=== PATIENT | female | born 1970 | race Caucasian/White ===

== ENCOUNTER → 2018-02-14 14:03 | Outpatient (CLI) | payer OTHER, SELFPAY ==
[2018-02-19 11:47] LABS: HPV Reflexed? NOT INDICATED
== END ==
PROVIDERS: Family Provider Family Medicine; PCP Family Medicine; Visit Provider Obstetrics & Gynecology
DX: Z12.4 Encounter for screening for malignant neoplasm of cervix (principal)
CPT/HCPCS: 88175; G0145

== ENCOUNTER → 2018-02-17 12:58 | Outpatient (CLI) | payer OTHER, SELFPAY ==
--- NOTE | 2018-02-17 13:00 | RAD_ITS ---
STUDY: X-RAY - LEFT KNEE REASON FOR EXAM: Female, 47 years old. Pain TECHNIQUE: 4 view(s) of the knee. COMPARISON: 10/07/2017 FINDINGS: Normal visualized distal femur. Normal visualized proximal tibia and fibula. Normal proximal tibiofibular articulation. Stable hemiarthroplasty of the medial femorotibial compartment. The hardware components are well aligned and stable. Mild degenerative spurring at the lateral femorotibial compartment with stable intra-articular calcific densities. Degenerative spurring at the patellofemoral articulation. The soft tissue structures are unremarkable. RAD/Knee 4 or More Views IMPRESSION: Stable postoperative and degenerative changes of the knee. No interval change Electronically Signed: Dennis King MD at 13:23 EDT , Service support ,
== END ==
PROVIDERS: Family Provider Family Medicine; PCP Family Medicine; Visit Provider Orthopaedic Surgery
DX: M25.562 Pain in left knee (principal)
CPT/HCPCS: 73564

== ENCOUNTER → 2018-08-06 12:55 | Outpatient (CLI) | payer OTHER, SELFPAY ==
[2018-08-06 14:01] LABS: Bacteria 0 SEEN /hpf (None Seen); Mucous, Urine 0 SEEN /hpf (<or=2+); Red Blood Cells-Urine 0 SEEN /hpf (0-5); White Blood Cells 0 SEEN /hpf (0-5)
[2018-08-06 15:15] LABS: Color, Urine Yellow (Yellow); Glucose, Dipstick Normal (Normal); Ketone-Dipstick Negative (Negative); Leukocyte Esterase-Dipstick 25 /ul (Negative); Nitrite-Dipstick Negative (Negative); Occult Blood-Urine Negative /ul (Negative); Protein-Dipstick 15 mg/dl (Negative); Specific Gravity, Urine 1.025 (1.002-1.030); Urine Bilirubin Dipstick Negative (Negative); Urine Clarity Clear (Clear); Urine Urobilinogen Normal (Normal)
[2018-08-06 15:22] LABS: Squamous Epithelial Cells - UA 0-5 SEEN /hpf (5-10)
== END ==
PROVIDERS: Family Provider Family Medicine; PCP Family Medicine; Visit Provider Family Medicine
DX: R10.9 Unspecified abdominal pain (principal)
CPT/HCPCS: 81001; 87077; 87086; 87088

== ENCOUNTER → 2018-10-08 16:08 | Outpatient (CLI) | payer OTHER, SELFPAY ==
--- NOTE | 2018-10-08 16:11 | RAD_ITS ---
STUDY: X-RAY - RIGHT WRIST REASON FOR EXAM: Female, 47 years old. Tendinitis, no known injury TECHNIQUE: 3 view(s) of the wrist were obtained. COMPARISON: None. FINDINGS: Normal visualized distal radius and ulna. Normal radiocarpal articulation. Normal distal radioulnar articulation. Normal carpal bones. Normal carpal articulations. Normal carpometacarpal articulation of the thumb. Normal second through fifth carpometacarpal articulations. Normal visualized metacarpal bones. The soft tissue structures are unremarkable. RAD/Wrist min 3 Views IMPRESSION: Normal x-ray examination of the wrist. Electronically Signed: Helena Schmidt MD at 7:32 EST , Service support ,
== END ==
PROVIDERS: Family Provider Family Medicine; PCP Family Medicine; Referring Provider Family Medicine; Visit Provider Family Medicine
DX: M65.9 Synovitis and tenosynovitis, unspecified (principal)
CPT/HCPCS: 73110

== ENCOUNTER → 2019-05-06 | Outpatient (CLI) | payer OTHER, SELFPAY ==
--- NOTE | 2019-05-06 14:36 | BI_ITS ---
MAMMOGRAPHY - BILATERAL SCREENING REASON FOR EXAM: Female, 48 years old. Routine annual screening examination. PERTINENT HISTORY: Personal history of breast cancer. Prior left lumpectomy. Grandmother with breast cancer. TECHNIQUE: Digital bilateral breast teodoro (3D mammographic acquisition) in the CC and MLO projections. 2-D mediolateral oblique (MLO) and craniocaudad (CC) views of both breasts were obtained. CAD: Full Field Digital Mammography with Computer Added Detection was performed. COMPARISON: Comparison is made with prior examination dated August 24, 2016 and August 10, 2015. FINDINGS: Breast Composition: There are scattered areas of fibroglandular density. There are no dominant masses or suspicious calcifications. The patient is status post left lumpectomy in the retroareolar region of the left breast. Stable postoperative architectural distortion. No new abnormality is seen. No other significant abnormalities are identified. There has been no significant change since the prior study. BI/SCREEN MAMM (CAD) W/TEODORO BILAT IMPRESSION: Stable bilateral screening mammogram. Yearly follow-up mammogram recommended. (A) ASSESSMENT CATEGORY: BIRADS Category 2: Benign. A letter regarding these results will be sent to the patient by the facility within 30 days. Approximately 10% of breast cancers are not detected by mammography. A normal mammogram should not delay biopsy of a clinically suspicious abnormality. [id number] Electronically Signed: Narendra Cano, at 15:36 EDT , Service support ,
== END | disposition home or self-care (01) ==
LOC: OPBI 14:33
PROVIDERS: Family Provider Family Medicine; PCP Family Medicine; Referring Provider Obstetrics & Gynecology; Visit Provider Obstetrics & Gynecology
DX: Z12.31 Encounter for screening mammogram for malignant neoplasm of breast (principal)
CPT/HCPCS: 77063; 77067

== ENCOUNTER → 2019-06-27 | Outpatient (CLI) | payer OTHER, SELFPAY ==
[2019-06-27 09:04] LABS: Absolute Lymphocyte Count 1.74 X10^3/uL (0.83-4.51); Basophil# 0.05 X10^3/uL; Basophil% 1.1 % (0-1); Eosinophil# 0.26 X10^3/uL; Eosinophils% 5.9 % (0-5); Hematocrit 43.6 % (37-47); Hemoglobin 13.9 g/dL (12.0-15.0); Lymphocyte # 1.74 X10^3/ul (4.0); Lymphocyte % 39.5 % (19-41); Mean Corp Hgb Conc 31.9 g/dL (32-36); Mean Corpuscular Hgb 29.8 pg (27.0-32.0); Mean Corpuscular Volume 93.4 fL (81-99); Mean Platelet Vol. 11.2 fl (6.2-12.0); Monocyte# 0.39 X10^3/uL; Monocyte% 8.9 % (0-10); NRBC Flagged by Analyzer 0 % (0-5); Neutrophil # 1.95 X10^3/uL (2.7-7.7); Neutrophil % 44.4 % (47-70); Platelet Count 190 K/mm3 (150-450); RBC Distribution Width CV 12.4 % (11.6-14.6); RBC Distribution Width SD 42.5 fl (35.1-43.9); Red Blood Count 4.67 M/mm3 (4.2-5.4); White Blood Count 4.4 K/mm3 (4.4-11.0)
[2019-06-27 09:28] LABS: Anion Gap 6 (5-15); BUN 19 mg/dL (7-18); BUN/Creat Ratio 23.5 RATIO (10-20); Calcium,Total 8.7 mg/dL (8.5-10.1); Chloride 112 mmol/L (98-107); Cholesterol 231 mg/dL (200); Creatinine, Serum 0.81 mg/dL (0.55-1.02); EST Glomerular Filtration Rate 79 mL/min (>60); Est Glom Filt Rate - Afr Amer 96 mL/min (>60); Glucose 92 mg/dL (74-106); High Density Lipoprotein 65 mg/dL; Potassium 4.1 mmol/L (3.5-5.1); Sodium Level 146 mmol/L (136-145); Triglycerides 113 mg/dL; Very Low Density Lipoprotein 23 mg/dL (5-40)
[2019-06-27 13:47] LABS: Vitamin D,25 Hydroxy 25.6 ng/mL (29.95-100.01)
== END | disposition home or self-care (01) ==
LOC: LAB 08:19
PROVIDERS: Family Provider Family Medicine; PCP Family Medicine; Referring Provider Family Medicine; Visit Provider Family Medicine
DX: E78.00 Pure hypercholesterolemia, unspecified (principal); M25.50 Pain in unspecified joint; K21.9 Gastro-esophageal reflux disease without esophagitis
CPT/HCPCS: 36415; 80048; 80061; 82306; 85025

== ENCOUNTER 2019-12-31 23:48 | Emergency (ER) | payer OTHER, SELFPAY ==
[2019-12-31 23:49] VITALS: BP 138/99; PULSE 65; RESP 16; TEMP 36.6; O2SAT 99; BMI 41.7
--- NOTE | 2020-01-01 00:13 | RAD_ITS ---
STUDY: X-RAY - RIGHT KNEE REASON FOR EXAM: Female, 49 years old. FELL -- C/O BILAT KNEE PAIN RT WORSE THAN LEFT TECHNIQUE: 4 view(s) of the knee. COMPARISON: Prior comparison studies are not available for review at this time. FINDINGS: Normal visualized distal femur. Spurring along the distal femur, tibial plateau, posterior inferior patella. Normal visualized proximal tibia and fibula. Normal proximal tibiofibular articulation. There is moderate degenerative arthrosis of the medial femorotibial compartment with moderate joint space narrowing. Normal lateral femorotibial compartment. There is mild degenerative arthrosis of the patellofemoral articulation. There is a soft tissue prominence in the suprapatellar region suggesting a small volume joint effusion. Subcutaneous stranding anterior to the tibia. RAD/Knee 4 or More Views IMPRESSION: Multiple moderate degenerative changes, small effusion. There is no acute displaced fracture or dislocation. Electronically Signed: Helena Schmidt MD at 1:27 EST , Service support ,
--- NOTE | 2020-01-01 00:13 | RAD_ITS ---
STUDY: X-RAY - LEFT KNEE REASON FOR EXAM: Female, 49 years old. FELL -- C/O BILAT KNEE PAIN RT WORSE THAN LEFT TECHNIQUE: 4 view(s) of the knee. COMPARISON: 02/17/2018 FINDINGS: Stable medial hemiarthroplasty. Spurring along the distal femur. Normal proximal tibiofibular articulation. Stable intra-articular densities. There is mild degenerative arthrosis of the lateral femorotibial compartment. There is moderate to severe degenerative arthrosis of the patellofemoral articulation, increased since previous exam. There is no demonstrated joint effusion. Morbid obesity. Subcutaneous fat infiltration proximal anterior tibia. RAD/Knee 4 or More Views IMPRESSION: Degenerative arthrosis. Increased degeneration. Stable postsurgical changes. Electronically Signed: Helena Schmidt MD at 1:24 EST , Service support ,
[2020-01-01 00:40] LABS: Bacteria 0 SEEN /hpf (None Seen); Mucous, Urine 0 SEEN /hpf (<or=2+); Squamous Epithelial Cells - UA 0 SEEN /hpf (5-10)
[2020-01-01 00:44] LABS: Color, Urine Yellow (Yellow); Glucose, Dipstick Normal (Normal); Ketone-Dipstick Negative (Negative); Leukocyte Esterase-Dipstick 25 /ul (Negative); Nitrite-Dipstick Negative (Negative); Occult Blood-Urine 10 /ul (Negative); Protein-Dipstick Negative (Negative); Urine Bilirubin Dipstick Negative (Negative); Urine Clarity Clear (Clear); Urine Urobilinogen Normal (Normal)
[2020-01-01 00:53] LABS: Red Blood Cells-Urine 0-5 SEEN /hpf (0-5); White Blood Cells 5-10 SEEN /hpf (0-5)
--- NOTE | 2020-01-01 01:00 | ED.VISSUMM ---
- ER Visit Summary Date of Service: 01/01/20 Chief Complaint: [Fall] History of Present Illness: The patient is a 49 F [presents to the emergency department with complaint of a fall while leaving work today. Patient states she slipped and fell landing mostly onto her right side. Patient planes of some discomfort in her right back and both knees. She was able to bear weight afterwards. She denies regular head or loss of consciousness. She denies neck pain. She denies chest pain or abdominal pain.] Physical Examination: [HEENT-PERRLA, EOMI. Cranial nerves II through XII grossly intact. TMs clear. Mucous membranes moist. No adenopathy. No external evidence of trauma to her head. No C-spine tenderness on palpation. Cardiovascular-regular rate and rhythm without murmur or ectopy Lungs-clear to auscultation, chest wall stable without crepitus or subcu emphysema Abdomen-normoactive bowel sounds, soft, nontender, no rebound or rigidity, no peritoneal signs. Back exam-she has no tenderness over the C-spine, or T-spine. She has no tenderness over the lumbar spine. Patient does have some mild discomfort over the right flank. Pain seems to be positional. She has negative straight leg raises. Extremities-intact ?4, normal range of motion, normal pulses. Right knee-patient does have some ecchymosis and bruising noted anteriorly with just faint superficial abrasions noted. Patient has good range of motion flexion extension of the knee. She is neurovascular intact distally. Left knee-patient has some diffuse tenderness palpation over the left knee especially the lateral aspect. No deformity noted. Patient has good range of motion of flexion-extension.] Test Results: [Urinalysis obtained showed 0-5 RBCs and 5-10 WBCs without other signs of infection.] X-rays of right and left knees obtained read by myself as no acute fractures. X-ray of the left knee does show a partial knee replacement and the hardware appears to be in good position without any fractures around the prosthesis. Emergency Department Course and Treatment: [He was given Tylenol 1 g p.o. Patient did not want crutches.] Treatment Plan: [Follow-up with corporate care in 3 to 5 days. Patient advised to use Tylenol for discomfort. Patient also will be given a few Percocet for severe pain should she needed.] Disposition: [Discharged home in stable condition] Impression: [Mechanical fall Contusion back Contusion bilateral knees] This note was generated with [employer] dictation software. It may contain incorrect words, spelling, and punctuation that were not noted in review of the chart prior to signing ED Disposition - Plan for ED Patient: Referrals: Albert Chi MD [Primary Care Provider] -
[2020-01-01] MEDS: Acetaminophen 500 MG Tablet 1000 MG PO (01:05)
--- NOTE | 2020-01-01 01:10 | DCINST.ED_ITS ---
ED Disposition - Plan for ED Patient: Instructions: FALL, Mechanical, CONTUSION, Back, CONTUSION, Lower Extremity Prescriptions: Oxycodone [Oxyir] 5 mg PO Q4H PRN PRN 3 Days #10 tab PRN Reason: Pain Score 6-10/10 Prescription Printed Referrals: Albert Chi MD [Primary Care Provider] - [facility] [GROUP OF PHYSICIANS] - 3-5 Days
[2020-01-01 01:49] VITALS: BP 135/89; PULSE 87; RESP 16; O2SAT 97
== END 2020-01-01 01:51 | disposition home or self-care (01) ==
LOC: ED 01-01 00:41
PROVIDERS: Emergency Provider Emergency Medicine; PCP Family Medicine; Referring Provider Family Medicine
DX: S80.02XA Contusion of left knee, initial encounter (principal); S80.01XA Contusion of right knee, initial encounter; S30.0XXA Contusion of lower back and pelvis, initial encounter; W10.1XXA Fall (on)(from) sidewalk curb, initial encounter
CPT/HCPCS: 73564; 81001; 99282

== ENCOUNTER → 2020-01-13 13:04 | Outpatient (CLI) | payer OTHER, SELFPAY ==
[2020-01-13 12:53] VITALS: BMI 41.7
--- NOTE | 2020-01-13 13:05 | RAD_ITS ---
STUDY: X-RAY - RIGHT ELBOW REASON FOR EXAM: Female, 49 years old. FALL X 1 WEEK TECHNIQUE: 3 view(s) of the elbow. COMPARISON: None. FINDINGS: Normal visualized humerus, radius and ulna. Normal radiocapitellar and ulnotrochlear articulations. The soft tissue structures are unremarkable. RAD/Elbow min 3 Views IMPRESSION: Normal x-ray examination of the elbow. Electronically Signed: Narendra Cano, at 13:41 EST , Service support ,
== END ==
PROVIDERS: PCP Family Medicine; Referring Provider Physician Assistant; Visit Provider Physician Assistant
DX: S50.01XA Contusion of right elbow, initial encounter (principal)
CPT/HCPCS: 73080

== ENCOUNTER → 2020-01-28 15:35 | Outpatient (CLI) | payer OTHER, SELFPAY ==
[2020-01-13 12:53] VITALS: BMI 41.7
--- NOTE | 2020-01-28 15:35 | MRI_ITS ---
STUDY: MRI RIGHT KNEE REASON FOR EXAM: Female, 49 years old. PT SLIPPED ON ICE 12/31/19 C/O PAIN H/O PRIOR TORN MENISCUS TECHNIQUE: Standardized fat and water weighted pulse sequences were obtained in all 3 orthogonal planes. 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 No visualized acute fracture. Mild edema is present in the subcutaneous tissues of the anterior knee. Varicose veins are present on the lateral side of the knee joint. There is degenerative tearing at the root insertion and inner one third aspect of the posterior horn of the medial meniscus. The remaining aspects of the posterior horn are swollen with abnormal intrinsic signal. Intrasubstance degenerative signal is also present in the body. The anterior horn is normal. There are several small loose bodies in the posterior aspect compartment beneath the joint capsule and superficial to the MCL. There is diffuse, full thickness articular cartilage loss of the medial femorotibial compartment. There is mild reactive marrow edema and cortical spurring of the medial femoral condyle and tibial plateau. Normal medial collateral ligamentous complex (MCL). Normal distal semimembranosus, gracilis and semitendinosus tendons. Normal lateral meniscus. There is diffuse, less than 50% thickness articular cartilage loss of the lateral femorotibial compartment. Normal lateral femoral condyle and tibial plateau. Normal proximal tibiofibular articulation. Normal lateral collateral (fibular) ligament. Normal popliteus tendon. Normal biceps femoris tendon. Normal anterior cruciate ligament (ACL). Normal posterior cruciate ligament (PCL). Normal congruent patellofemoral articulation. There is diffuse, less than 50% thickness articular cartilage loss of the patellofemoral compartment. Normal medial and lateral patellar retinaculum. Normal quadriceps tendon. Normal patellar tendon. Normal Hoffa''s fat pad. There is no joint effusion. The soft tissues are unremarkable. The otherwise visualized osseous structures are unremarkable. MRI/Lower Ext Joint Only (Routine) IMPRESSION: 1. Degenerative tear in the posterior horn of the medial meniscus 2. Several small loose bodies at the periphery of the medial compartment but needs the joint capsule 3. Full-thickness loss of cartilage in the medial compartment 4. Small joint effusion Electronically Signed: Deangelo Durán MD at 17:26 EST , Service support ,
== END ==
PROVIDERS: PCP Family Medicine; Referring Provider Physician Assistant; Visit Provider Physician Assistant
DX: S80.01XA Contusion of right knee, initial encounter (principal)
CPT/HCPCS: 73721

== ENCOUNTER → 2020-05-24 06:46 | Outpatient (CLI) | payer OTHER, SELFPAY ==
[2020-01-13 12:53] VITALS: BMI 41.7
== END ==
PROVIDERS: PCP Family Medicine; Referring Provider Family Medicine; Visit Provider Family Medicine
DX: Z00.00 Encounter for general adult medical examination without abnormal findings (principal)

== ENCOUNTER → 2020-06-14 09:57 | Outpatient (CLI) | payer OTHER, SELFPAY ==
[2020-01-13 12:53] VITALS: BMI 41.7
[2020-06-14 11:18] LABS: Cholesterol 233 mg/dL (200); High Density Lipoprotein 65 mg/dL; Triglycerides 158 mg/dL; Very Low Density Lipoprotein 32 mg/dL (5-40)
== END ==
PROVIDERS: PCP Family Medicine; Referring Provider Family Medicine; Visit Provider Family Medicine
DX: E78.5 Hyperlipidemia, unspecified (principal); E55.9 Vitamin D deficiency, unspecified
CPT/HCPCS: 36415; 80061; 82306

== ENCOUNTER → 2020-06-30 12:30 | Outpatient (CLI) | payer OTHER, SELFPAY ==
[2020-01-13 12:53] VITALS: BMI 41.7
--- NOTE | 2020-06-30 12:32 | BI_ITS ---
MAMMOGRAPHY - BILATERAL SCREENING REASON FOR EXAM: Female, 49 years old. Routine annual screening examination. PERTINENT HISTORY: Personal history of breast cancer. Prior left lumpectomy. Grandmother with breast cancer. Aunt with breast cancer. TECHNIQUE: Digital bilateral breast teodoro (3D mammographic acquisition) in the CC and MLO projections. 2-D mediolateral oblique (MLO) and craniocaudad (CC) views of both breasts were obtained. CAD: Full Field Digital Mammography with Computer Added Detection was performed. COMPARISON: Comparison is made with prior examination dated 05/06/2019 and 08/24/2016. FINDINGS: Breast Composition: There are scattered areas of fibroglandular density. There are no dominant masses or suspicious calcifications. Surgical clips are once again seen in the central retroareolar portion of the left breast with the postoperative scarring at the lumpectomy site. This is unchanged. No other significant abnormalities are identified. There has been no significant change since the prior study. BI/SCREEN MAMM (CAD) W/TEODORO BILAT IMPRESSION: Stable bilateral screening mammogram. Yearly follow-up mammogram recommended. (A) ASSESSMENT CATEGORY: BIRADS Category 2: Benign. A letter regarding these results will be sent to the patient by the facility within 30 days. Approximately 10% of breast cancers are not detected by mammography. A normal mammogram should not delay biopsy of a clinically suspicious abnormality. [id number] Electronically Signed: Narendra Cano, at 8:22 EDT , Service support ,
== END ==
PROVIDERS: PCP Family Medicine; Referring Provider Obstetrics & Gynecology; Visit Provider Obstetrics & Gynecology
DX: Z12.31 Encounter for screening mammogram for malignant neoplasm of breast (principal)
CPT/HCPCS: 77063; 77067

== ENCOUNTER → 2021-02-10 12:56 | Outpatient (CLI) | payer OTHER, SELFPAY ==
[2020-01-13 12:53] VITALS: BMI 41.7
--- NOTE | 2021-02-10 13:01 | RAD_ITS ---
STUDY: X-RAY - RIGHT KNEE REASON FOR EXAM: Right knee pain. TECHNIQUE: 4 view(s) of the knee. COMPARISON: Radiographs 01/01/2020. FINDINGS: There is a chondroid series tumor in the distal femoral diametaphysis measuring 1.3 cm in length and unchanged since the prior study most consistent with an enchondroma. Normal visualized proximal tibia and fibula. Normal proximal tibiofibular articulation. There is severe joint space narrowing of the medial femorotibial compartment, increased since the prior study. Normal lateral femorotibial compartment. There are small marginal osteophytes without joint space narrowing of the patellofemoral articulation. There is a small joint effusion. There is a soft tissue calcification at the medial aspect of the knee. RAD/Knee 4 or More Views IMPRESSION: Increased arthrosis of the medial femorotibial compartment. Small joint effusion. Soft tissue calcification at the medial aspect of the knee. No interval change of chondroid series tumor in the distal femur. Electronically Signed: Yovany Soto MD at 13:32 EDT Tel , Service support ,
--- NOTE | 2021-02-10 13:01 | RAD_ITS ---
STUDY: X-RAY - LEFT KNEE REASON FOR EXAM: Left knee pain, left knee surgery in 2016. TECHNIQUE: 4 view(s) of the knee. COMPARISON: Radiographs 01/01/2020. FINDINGS: Normal visualized distal femur. Normal visualized proximal tibia and fibula. Normal proximal tibiofibular articulation. There is a medial femorotibial unicompartmental arthroplasty without evidence of complication. Normal lateral femorotibial compartment. There are marginal osteophytes without joint space narrowing of the patellofemoral articulation. There is a small joint effusion. RAD/Knee 4 or More Views IMPRESSION: Uncomplicated medial femorotibial unicompartmental arthroplasty. Small joint effusion. Electronically Signed: Yovany Soto MD at 13:39 EDT Tel , Service support ,
== END ==
PROVIDERS: PCP Family Medicine; Referring Provider Family Medicine; Visit Provider Family Medicine
DX: M25.561 Pain in right knee (principal); M25.562 Pain in left knee
CPT/HCPCS: 73564

== ENCOUNTER 2021-04-06 21:04 | Emergency (ER) | payer OTHER, SELFPAY ==
[2020-01-13 12:53] VITALS: BMI 41.7
[2021-04-06 21:05] VITALS: BP 134/82; PULSE 60; RESP 18; TEMP 36.6; O2SAT 98; BMI 37.4
--- NOTE | 2021-04-06 23:55 | EX.ED.UPPERE ---
HPI History of Present Illness Chief Complaint: Laceration Informant: patient Occured/Mechanism Mechanism/Context: Yes other see comment below Comment: Cut with a knife Onset/Context/Timing Onset: Today Context: Sudden Onset Timing: Continuous Quality of Pain: Burning and Throbbing Location: Left thumb Worsened by: Palpation Relieved by: Nothing Associated Symptoms Associated Symptoms: Negative for Parasthesia and Weakness Narrative Narrative: Patient presents with laceration to her left thumb that occurred today. Patient states she accidentally cut it with a knife. Patient denies any paresthesias or weakness. Patient states her last tetanus was within 5 years. Patient states the bleeding has been persistent. Patient denies any other injuries. [facility] Medical History Arthritis History of hemorrhoids History of pneumonia hx of leg injury Knee pain Home Medications sertraline 100 - 200 mg PO DAILY 10/07/13 [History Last Taken Unknown] celecoxib 200 mg PO DAILY 10/10/16 [History Last Taken Unknown] acetaminophen 325 mg capsule 325 mg PO ONCE PRN 01/04/20 [History Last Taken Unknown] famotidine 20 mg tablet 20 mg PO DAILY 01/04/20 [History Last Taken Unknown] Allergy/AdvReac Type Severity Reaction Status Date / Time amoxicillin [From Augmentin] Allergy Diarrhea Verified 04/06/21 21:07 clavulanic acid Allergy Diarrhea Verified 04/06/21 21:07 [From Augmentin] hydrocodone bitartrate AdvReac Vomiting Verified 04/06/21 21:07 [From Vicodin] Family History Father Heart disease Other Cancer Seizures Surgical History Bilateral carpal tunnel syndrome H/O lateral meniscus repair of left knee H/O lateral meniscus repair of right knee History of arthroscopy of both knees History of bunionectomy History of lumpectomy History of partial knee replacement history of uterine ablation Acuña neuroma Social History Smoking Status: Never smoker alcohol intake: current alcohol intake frequency: holidays/special occasions only ROS ROS ED Constitutional Constitutional ED: Denies chills or subjective Eyes Eyes: Denies blurry vision or change in vision ENT ENT ED: Denies rhinorrhea or sore throat Cardiovascular Cardiovascular: Denies chest pain or palpitations Respiratory/Chest Respiratory/Chest: Denies cough or dyspnea Gastrointestinal Gastrointestinal: Denies nausea or vomiting Genitourinary Genitourinary ED: Denies dysuria or hematuria Musculoskeletal Musculoskeletal: Denies back pain or neck pain Integumentary Denies abscess or rash Neurologic Neurologic: Denies headache(s) or weakness Allergic/Immunologic Allergic/Immunologic ED: Denies mouth swelling or urticaria EXAM Physical Exam Const Vital Signs: 04/06/21 21:05 Temperature 97.9 F Temperature Source Temporal Pulse Rate 60 Respiratory Rate 18 Blood Pressure 134/82 H Blood Pressure Mean 99 Pulse Ox 98 Oxygen Delivery Method Room Air Positive well nourished, well developed and obese General Appearance ED: well developed Nutritional Appearance: obese HEENT normocephalic Neck full ROM and supple Extremity Extremity Narrative: There is a 2 cm full-thickness linear laceration over the dorsal aspect of the left thumb at the base of the proximal phalanx. There is mild gapping of the wound margins. There are no foreign bodies. There is no tendon laceration noted. Strength is 5/5 in flexion extension of the IP and MP joints of the left thumb. There are no sensory deficits noted. Neuro oriented x3, CN's II-XII intact bilaterally, moves all extremities, no focal motor deficits and no sensory deficits noted Sensorium / Orientation: alert Psych mental status grossly normal MDM MDM MDM Narrative Medical decision making narrative: The wound was cleaned and irrigated with copious amounts of normal saline. The wound was anesthetized with 1% plain lidocaine locally. The wound was closed with 3 simple interrupted #4-0 nylon sutures under sterile technique. Patient tolerated the procedure well. Bacitracin dressing was applied. Patient was instructed to keep the wound clean and dry. Patient was instructed to follow-up with her primary care physician in 7 days for wound recheck and suture removal. Patient understood and was agreeable with the plan. All questions were answered. Procedures Lacerations Left thumb: Length: 2 cm Depth: Sub Q Shape: Linear Prep: Sterile Conditions and Shure-Clens Laceration repair: Irrigated, Lidocaine and Local Irrigated (ml): 60 Number of Sutures/[place]: 3 Suture Information: Ethilon, Simple and 4-0 Discharge Plan Triage Chief Complaint: Laceration ED Provider: Jarred Call Dx/Rx/DC Orders Clinical Impression: Laceration of left thumb Instructions: ED Laceration, Hand: All Closures Prescriptions: No Action famotidine [Pepcid] 20 mg tablet 20 mg PO DAILY RF: 0 acetaminophen [Tylenol] 325 mg capsule 325 mg PO ONCE PRN (Reason: Pain) RF: 0 sertraline 100 MG tablet 100 - 200 mg PO DAILY RF: 0 celecoxib 200 MG capsule 200 mg PO DAILY RF: 0 Primary Care Provider: Albert Chi Referrals: Albert Chi MD [Primary Care Provider] - 7 Days for suture removal Disposition Disposition: Home, self care Discharge Date/Time: 04/07/21 00:06
[2021-04-07] MEDS: Lidocaine 1% (20 ml mdv) 20 ML Vial INFILT (00:03)
[2021-04-07 00:04] VITALS: BP 131/90; PULSE 53; RESP 15; O2SAT 98
== END 2021-04-07 00:06 | disposition home or self-care (01) ==
PROVIDERS: Emergency Provider Emergency Medicine; PCP Family Medicine
DX: S61.012A Laceration without foreign body of left thumb without damage to nail, initial encounter (principal); W26.0XXA Contact with knife, initial encounter; M19.90 Unspecified osteoarthritis, unspecified site; Z79.1 Long term (current) use of non-steroidal anti-inflammatories (NSAID); Z87.19 Personal history of other diseases of the digestive system
CPT/HCPCS: 12001; 99282

== ENCOUNTER → 2021-07-17 14:02 | Outpatient (CLI) | payer OTHER, SELFPAY ==
--- NOTE | 2021-07-17 14:10 | BI_ITS ---
MAMMOGRAPHY - BILATERAL SCREENING REASON FOR EXAM: Female, 50 years old. Routine annual screening examination. PERTINENT HISTORY: Personal history of breast cancer. Prior left lumpectomy. Grandmother with breast cancer. Aunt with breast cancer. TECHNIQUE: Digital bilateral breast teodoro (3D mammographic acquisition) in the CC and MLO projections. 2-D mediolateral oblique (MLO) and craniocaudad (CC) views of both breasts were obtained. CAD: Full Field Digital Mammography with Computer Added Detection was performed. COMPARISON: Comparison is made with prior study 06/30/2020 and 05/06/2019. FINDINGS: Breast Composition: There are scattered areas of fibroglandular density. There are no dominant masses or suspicious calcifications. Surgical clips are once again seen in the retroareolar region of the left breast. No other significant abnormalities are identified. There has been no significant change since the prior study. BI/SCRN MAMM (CAD)W/TEODORO BILAT IMPRESSION: Stable bilateral screening mammogram. Yearly follow-up mammogram recommended. (A) ASSESSMENT CATEGORY: BIRADS Category 2: Benign. A letter regarding these results will be sent to the patient by the facility within 30 days. Approximately 10% of breast cancers are not detected by mammography. A normal mammogram should not delay biopsy of a clinically suspicious abnormality. [id number] Electronically Signed: Narendra Cano MD at 14:57 EDT , Service support ,
== END ==
PROVIDERS: PCP Family Medicine; Referring Provider Obstetrics & Gynecology; Visit Provider Obstetrics & Gynecology
DX: Z12.31 Encounter for screening mammogram for malignant neoplasm of breast (principal)
CPT/HCPCS: 77063; 77067

== ENCOUNTER 2021-08-21 16:12 | Outpatient (CLI) | payer OTHER, SELFPAY ==
[2021-08-21 16:22] VITALS: BP 137/79; PULSE 57; RESP 16; TEMP 36.6; O2SAT 95; BMI 38.9
[2021-08-21] MEDS: 0.9% Saline Lock 10 ML Syringe IV (16:33)
[2021-08-21 17:21] VITALS: BP 132/76; PULSE 52; RESP 16; TEMP 36.6; O2SAT 95
[2021-08-21 18:21] VITALS: BP 126/74; PULSE 52; RESP 16; TEMP 36.6; O2SAT 97
== END 2021-08-21 18:25 | disposition home or self-care (01) ==
LOC: ICUOUT 16:12 → MS3 16:13
PROVIDERS: PCP Family Medicine; Referring Provider Nurse Practitioner Adult Health; Visit Provider Nurse Practitioner Adult Health
DX: Z23 Encounter for immunization (principal); U07.1 COVID-19
CPT/HCPCS: J7050; M0243; A4216; Q0244

== ENCOUNTER 2021-11-14 07:27 | Emergency (ER) | payer OTHER, SELFPAY ==
[2021-11-14 07:28] VITALS: BP 184/94; PULSE 89; RESP 20; TEMP 36.4; O2SAT 98; BMI 39.0
--- NOTE | 2021-11-14 07:33 | CT_ITS ---
STUDY: CT ABDOMEN AND PELVIS WITHOUT CONTRAST REASON FOR EXAM: Female, 51 years old. Left flank pain. Urinary frequency. RADIATION DOSAGE (If Supplied By Facility): CTDIvol = ( 22.61 ) mGy, DLP = ( 1191.93 ) mGycm TECHNIQUE: Transaxial images were obtained from the dome of the diaphragm to the symphysis pubis without oral contrast, and without intravenous contrast. Sagittal and coronal images were reconstructed. Individualized dose optimization techniques were used for this CT. COMPARISON: None. FINDINGS: The visualized lung bases are unremarkable. The visualized portions of the heart are within normal limits. There are several hypodense nodules scattered throughout the left and right lobe of the liver. There is a 3.2 signed by 2.8 cm hypodense mass in the anterior right lobe of the liver in the region of the dome. A similar appearing hypodense mass is seen in the posterior aspect of the dome of the liver measuring 3.8 sinus by 3.3 cm. There is also evidence of a 3.2 cm x 3.2 cm hypodense nodule in the posterior medial aspect of the right lobe. A fourth lesion measuring 2.2 cm x 2 cm along the anterior lateral aspect of the lower aspect of the right lobe. A repeat CT scan following IV contrast is recommended. Normal gallbladder and extrahepatic biliary system. Normal spleen. Normal pancreas. Normal bilateral adrenal glands. Normal right kidney. 2 mm calculus is seen in the proximal left ureter just distal to the ureteropelvic junction. This causes a mild degree of left hydronephrosis. Normal visualized stomach. Normal small intestine. Normal colon. The appendix is visualized and appears normal. Normal abdominal aorta. Normal inferior vena cava. Normal retroperitoneum. Normal urinary bladder. There is a small umbilical hernia containing fat. There are degenerative changes of the visualized lumbar spine. CT/Abdomen/Pelvis without Cont IMPRESSION: 2 mm calculus in the proximal portion of the left ureter causing a mild degree of left hydronephrosis. Multiple intrahepatic masses as described. Correlation with a CT scan following IV contrast is recommended. Electronically Signed: Narendra Cano MD at 8:40 EST , Service support ,
--- NOTE | 2021-11-14 07:34 | ED.VIS.GI ---
HPI HPI - GI History of Present Illness Chief Complaint: Flank Pain Informant: patient Abdominal Pain/Flank Pain Onset: Hours (Abrupt onset at 0130) Context: Sudden Onset Timing: Continuous and Waxes and wanes Quality: Aching Location: Left Flank Current Severity: Severe Maximum Severity: Severe Worsened by: Nothing Relieved by: Nothing Nausea/Vomiting/Emesis GI Symptom: Positive for Nausea and Vomiting Onset: Hours Severity: Mild Diarrhea/Melena/Hematochezia GI Symptom: Negative for Diarrhea, Melena and Hematochezia Associated Symptoms Associated Symptoms: Positive for Frequency and Urgency; Negative for Dysuria and Hematuria LMP: Post menopausal Narrative Narrative: Patient is a middle-age woman who presents with abrupt onset of left flank pain that radiates anteriorly to the left inguinal area. There is no prior history of renal ureterolithiasis. She reports frequency. She denies hematuria. Denies dysuria. She did denies fever but reported shaking chills. She did report nausea and vomiting. She denies diarrhea. She denies allergies to NSAID. She states she becomes very nauseous and vomits with [place]/Vicodin. She denies any URI, cardiac, respiratory, gynecologic symptoms. There is no history of trauma. Prior similar symptoms: No Recent Illness/Hospitalization: No PFSH [facility] Medical History Arthritis History of hemorrhoids History of pneumonia hx of leg injury Knee pain Home Medications sertraline 100 - 200 mg PO DAILY 10/07/13 [History Last Taken Unknown] celecoxib 200 mg PO DAILY 10/10/16 [History Last Taken Unknown] acetaminophen 325 mg capsule 325 mg PO ONCE PRN 01/04/20 [History Last Taken Unknown] famotidine 20 mg tablet 20 mg PO DAILY 01/04/20 [History Last Taken Unknown] ondansetron 4 mg PO Q8H PRN PRN #10 tab 11/14/21 [Rx Last Taken Unknown] oxycodone-acetaminophen 1 tab PO Q6H PRN PRN 5 Days #20 tablet 11/14/21 [Rx Last Taken Unknown] Allergy/AdvReac Type Severity Reaction Status Date / Time amoxicillin [From Augmentin] Allergy Diarrhea Verified 11/14/21 07:29 clavulanic acid Allergy Diarrhea Verified 11/14/21 07:29 [From Augmentin] hydrocodone bitartrate AdvReac Vomiting Verified 11/14/21 07:29 [From Vicodin] Family History Father Heart disease Other Cancer Seizures Surgical History Bilateral carpal tunnel syndrome H/O lateral meniscus repair of left knee H/O lateral meniscus repair of right knee History of arthroscopy of both knees History of bunionectomy History of lumpectomy History of partial knee replacement history of uterine ablation Acuña neuroma Social History (Updated 11/14/21 @ 07:[address] Brandon Chaney MD) Smoking Status: Never smoker alcohol intake: current alcohol intake frequency: holidays/special occasions only substance use type: does not use ROS ROS ED Constitutional Constitutional ED: Reports chills; Denies fever(s), subjective or sweats ENT ENT ED: Denies rhinorrhea or sore throat Cardiovascular Cardiovascular: Denies chest pain or palpitations Respiratory/Chest Respiratory/Chest: Denies cough, dyspnea or dyspnea on exertion Gastrointestinal Gastrointestinal: Reports abdominal pain, nausea and vomiting; Denies constipation, diarrhea or melena Genitourinary Genitourinary ED: Reports urinary frequency; Denies dysuria or hematuria Musculoskeletal Musculoskeletal: Reports back pain; Denies arthralgias, myalgias or neck pain Integumentary Denies rash Neurologic Neurologic: Denies paresthesias or weakness Hematologic/Lymphatic Hematologic/Lymphatic: Denies easy bleeding or easy bruising EXAM Physical Exam Const Vital Signs: 11/14/21 07:28 11/14/21 07:42 Temperature 97.6 F L Temperature Source Temporal Pulse Rate 89 Respiratory Rate 20 H Respiratory Effort Normal Non-Labored Respiratory Pattern Normal Blood Pressure 184/94 H Blood Pressure Mean 124 Pulse Ox 98 Oxygen Delivery Method Room Air Positive well nourished, well developed and obese General Appearance ED: well developed and other Patient appears in obvious discomfort. ; Negative for NAD Nutritional Appearance: obese HEENT Reports moist mucous membranes normocephalic and atraumatic Eyes PERRL and EOMs intact bilaterally General Eye ED: Negative for pale conjunctiva or scleral icterus Neck no lymphadenopathy, supple and no JVD Resp normal respiratory effort and clear to auscultation bilaterally Cardio regular rate, regular rhythm, S1 normal heart sound, S2 normal heart sound and no murmurs GI non-tender, non-distended and no masses Auscultation: normoactive bowel sounds Palpation: soft Back/Spine General Back: CVA tenderness left Thoracic Spine / Upper Back: Negative for thoracic spinal tenderness Lumbar Spine / Lower Back: Negative for lumbar spinal tenderness Extremity full ROM General Extremety ED: Negative for edema or tenderness General Extremity: Negative for edema Neuro CN's II-XII intact bilaterally Sensorium / Orientation: alert, oriented to person, oriented to place and oriented to time Psych mental status grossly normal and thought process normal Skin no wounds Lesions: no lesions Rashes: no rashes MDM MDM MDM Narrative Medical decision making narrative: Patient presents with abrupt onset left flank pain radiating anteriorly to the left inguinal area. Suspect obstructing stone. Since she has significant CVA tenderness and reported rigors will obtain UA to assess for infection as well as CBC, BMP to assess renal function. Patient was medicated with IV Toradol and Zofran for her nausea and pain respectively. CT was obtained since she denies prior history. Ultrasound of the abdomen reveals 4 heterogeneous nodules of various echotexture scattered throughout the right lobe corresponding to the CT findings. The largest nodule measures 3.6 x 2.9 x 3.1 cm. These lesions are in the upper aspect of the right lobe. A neoplastic process needs to be ruled out. Patient's primary care physician was contacted to facilitate outpatient work-up. Radiologist recommended CT with IV contrast however with acute renal injury not ideal to perform at this time. She will be referred to urology for her proximal obstructing stone with hydroureter and hydronephrosis. I was informed that 1125 that patient's pain is returning. In light of the elevated creatinine and GFR [address] Chi Nelson at Dr. Chi's office. He will notify agitator operator to arrange for appointment for patient to assess renal function and to obtain CT with IV contrast to evaluate liver nodules. Lab Data Attestation: I reviewed the patient's lab results. Lab results narrative: Creatinine is elevated from baseline. Creatinine is 1.31 with a GFR of 45. UA is negative. CT of the abdomen pelvis was reviewed by me. There appears to be a proximal stone as well as a stone in the bladder. There also is hypodense lesions noted in the liver. Awaiting official read by radiologist. Patient has several hypodense nodules scattered throughout the left and right lobe of the liver. Radiologist recommended CT with IV contrast. Spoke with Dr. Cano since creatinine is elevated with a GFR of 45. He recommended ultrasound for initial evaluation. A limited ultrasound the abdomen was ordered to evaluate the hypodense nodules noted on unenhanced CT of the abdomen and pelvis. Labs: Laboratory Results - last 24 hr 11/14/21 11/14/21 11/14/21 07:35 07:35 07:45 WBC 6.5 RBC 4.81 Hgb 14.4 Hct 43.3 MCV 90.0 MCH 29.9 MCHC 33.3 RDW Std Deviation 39.5 RDW Coeff of Veronica 12.0 Plt Count 207 MPV 10.7 Immature Gran % (Auto) 0.200 Neut % (Auto) 67.1 Lymph % (Auto) 23.0 [place] % (Auto) 6.6 Eos % (Auto) 2.6 Baso % (Auto) 0.5 Absolute Neuts (auto) 4.4 Absolute Lymphs (auto) 1.49 Nucleated RBC % 0 Sodium 142 Potassium 4.5 Chloride 111 H Carbon Dioxide 26.0 Anion Gap 5 BUN 30 H Creatinine 1.31 H Estim Creat Clear Calc 46.49 Est GFR (MDRD) Af Amer 55 L Est GFR (MDRD) Non-Af 45 L BUN/Creatinine Ratio 22.9 H Glucose 108 H Calcium 9.5 Urine Color Yellow Urine Clarity Clear Urine pH 7.0 Ur Specific [place] 1.005 Urine Protein Negative Urine Glucose (UA) Normal Urine Ketones Negative Urine Occult Blood Negative Urine Nitrite Negative Urine Bilirubin Negative Urine Urobilinogen Normal Ur Leukocyte Esterase Negative Urine RBC 0 SEEN Urine WBC 0 SEEN Ur Squamous Epith Cells 0 SEEN Urine Bacteria 0 SEEN Urine Mucus 0 SEEN Radiography Diagnostic Testing: Clinical Impression(s) from Imaging Studies Abdomen/Pelvis CT 11/14/21 07:33 IMPRESSION: 2 mm calculus in the proximal portion of the left ureter causing a mild degree of left hydronephrosis. Multiple intrahepatic masses as described. Correlation with a CT scan following IV contrast is recommended. Electronically Signed: Narendra Cano MD at 8:40 EST , Service support , Abdomen Ultrasound 11/14/21 08:59 IMPRESSION: Heterogeneous solid nodules within the right lobe of the liver as described. These correspond to the CT findings. A neoplastic process should be ruled out. Electronically Signed: Narendra Cano MD at 10:43 EST , Service support , Discharge Plan Triage Chief Complaint: Flank Pain ED Provider: Brandon Chaney Dx/Rx/DC Orders Clinical Impression: Nodule on liver, Hydronephrosis with urinary obstruction due to ureteral calculus, Acute kidney insufficiency Instructions: Tests for Liver Disease, ED Renal Insufficiency, ED Kidney Stone w/ Colic Prescriptions: New oxycodone-acetaminophen [oxycodone-acetaminophen] 1 TABLET tablet 1 tab PO Q6H PRN PRN (Reason: pain) 5 Days Qty: 20 RF: 0 ondansetron [ondansetron] 4 MG tablet 4 mg PO Q8H PRN PRN (Reason: Nausea) Qty: 10 RF: 0 No Action famotidine [Pepcid] 20 mg tablet 20 mg PO DAILY RF: 0 acetaminophen [Tylenol] 325 mg capsule 325 mg PO ONCE PRN (Reason: Pain) RF: 0 sertraline 100 MG tablet 100 - 200 mg PO DAILY RF: 0 celecoxib 200 MG capsule 200 mg PO DAILY RF: 0 Primary Care Provider: Albert Chi Referrals: Albert Chi MD [Primary Care Provider] - As soon as possible Disposition Disposition: Home, Self Care
[2021-11-14] MEDS: Ketorolac 15 MG/ML Vial IV (07:38)
[2021-11-14] MEDS: Ondansetron 4 MG/2 ML Vial IV (07:38)
[2021-11-14] MEDS: 0.9% Normal Saline 1,000 ML 250 ML IV ×2 (07:40→12:17)
[2021-11-14 07:53] LABS: Bacteria 0 SEEN /hpf (None Seen); Mucous, Urine 0 SEEN /hpf (<or=2+); Red Blood Cells-Urine 0 SEEN /hpf (0-5); Squamous Epithelial Cells - UA 0 SEEN /hpf (5-10); White Blood Cells 0 SEEN /hpf (0-5)
[2021-11-14 07:57] LABS: Absolute Lymphocyte Count 1.49 X10^3/uL (0.83-4.51); Absolute Neutrophil Count 4.4 X10^3/uL (2.0-7.7); Basophil# 0.03 X10^3/uL; Basophil% 0.5 % (0-1); Eosinophil# 0.17 X10^3/uL; Eosinophils% 2.6 % (0-5); Hematocrit 43.3 % (37-47); Hemoglobin 14.4 g/dL (12.0-15.0); Lymphocyte # 1.49 X10^3/ul (0.83-4.51); Mean Corp Hgb Conc 33.3 g/dL (32-36); Mean Corpuscular Hgb 29.9 pg (27.0-32.0); Mean Platelet Vol. 10.7 fl (6.2-12.0); Monocyte# 0.43 X10^3/uL; Monocyte% 6.6 % (0-10); NRBC Flagged by Analyzer 0 % (0-5); Neutrophil # 4.36 X10^3/uL (2.7-7.7); Neutrophil % 67.1 % (47-70); Platelet Count 207 K/mm3 (150-450); RBC Distribution Width SD 39.5 fl (35.1-43.9); Red Blood Count 4.81 M/mm3 (4.2-5.4); White Blood Count 6.5 K/mm3 (4.4-11.0)
[2021-11-14 08:06] LABS: Color, Urine Yellow (Yellow); Glucose, Dipstick Normal (Normal); Ketone-Dipstick Negative (Negative); Leukocyte Esterase-Dipstick Negative /ul (Negative); Nitrite-Dipstick Negative (Negative); Occult Blood-Urine Negative /ul (Negative); Protein-Dipstick Negative (Negative); Specific Gravity, Urine 1.005 (1.002-1.030); Urine Bilirubin Dipstick Negative (Negative); Urine Clarity Clear (Clear); Urine Urobilinogen Normal (Normal)
[2021-11-14 08:11] LABS: Anion Gap 5 (5-15); BUN 30 mg/dL (7-18); BUN/Creat Ratio 22.9 RATIO (10-20); Calcium,Total 9.5 mg/dL (8.5-10.1); Chloride 111 mmol/L (98-107); Creatinine, Serum 1.31 mg/dL (0.55-1.02); EST Glomerular Filtration Rate 45 mL/min (>60); Est Glom Filt Rate - Afr Amer 55 mL/min (>60); Estimated Creatinine Clearance 46.49 ml/min; Glucose 108 mg/dL (74-106); Potassium 4.5 mmol/L (3.5-5.1); Sodium Level 142 mmol/L (136-145)
--- NOTE | 2021-11-14 08:59 | US_ITS ---
STUDY: ABDOMINAL ULTRASOUND - RIGHT UPPER QUADRANT REASON FOR VISIT: Female, 51 years old Multiple hepatic lesions TECHNIQUE: Ultrasound evaluation of the right upper quadrant was performed with real-time and static sotelo-scale imaging. TECHNICAL QUALITY: Adequate. COMPARISON: Comparison is made with prior CT scan the abdomen and pelvis done earlier today. FINDINGS: Liver: The liver measures 13.2 cm. There is a heterogeneous echogenicity of the liver. The bile ducts are within normal limits. There is hepatic color flow. The direction of portal flow is hepatopetal. There are 4 heterogeneous nodules of the various echotexture scattered throughout the right lobe corresponding to the CT findings. The largest nodule measures 3.6 cm 2.9 cm x 3.1 cm. This is in the upper aspect of the right lobe of the liver. Gallbladder: Normal distended gallbladder. The gallbladder wall measures 2.0 mm. There is a negative sonographic Hill''s sign. There is no pericholecystic fluid. There are no gallstones. Common Bile Duct (C.B.D.): The common bile duct measures 3.7 mm. Pancreas: Normal size of the head, body and tail of the pancreas. There is no demonstrated pancreatic mass or cyst. Right Kidney: Normal size of the right kidney. The right kidney measures 11.4 cm x 5.1 cm x 4.9 cm. Normal renal cortex. The right cortex measures 2.1 cm. There is no demonstrated renal mass or cyst. There is no right hydronephrosis. US/Abdomen Limited IMPRESSION: Heterogeneous solid nodules within the right lobe of the liver as described. These correspond to the CT findings. A neoplastic process should be ruled out. Electronically Signed: Narendra Cano MD at 10:43 EST , Service support ,
[2021-11-14] MEDS: HYDROmorphone 0.5 MG/0.5 ML SYRINGE IV (12:18)
[2021-11-14 13:07] VITALS: BP 172/102; PULSE 106; RESP 16; O2SAT 98
== END 2021-11-14 13:08 | disposition home or self-care (01) ==
PROVIDERS: Emergency Provider Emergency Medicine; PCP Family Medicine
DX: K76.89 Other specified diseases of liver (principal); N13.2 Hydronephrosis with renal and ureteral calculous obstruction; N28.9 Disorder of kidney and ureter, unspecified; E66.9 Obesity, unspecified; Z87.19 Personal history of other diseases of the digestive system
CPT/HCPCS: 74176; 76705; 80048; 81001; 85025; 96374; 96375; 99283; J7030; A4216; J2405

== ENCOUNTER → 2021-11-15 10:06 | Outpatient (CLI) | payer OTHER, SELFPAY ==
[2021-11-15 12:18] LABS: Absolute Lymphocyte Count 1.53 X10^3/uL (0.83-4.51); Basophil# 0.05 X10^3/uL; Basophil% 1.2 % (0-1); Eosinophil# 0.14 X10^3/uL; Eosinophils% 3.4 % (0-5); Hematocrit 43.5 % (37-47); Hemoglobin 13.8 g/dL (12.0-15.0); Lymphocyte # 1.53 X10^3/ul (0.83-4.51); Lymphocyte % 37.7 % (19-41); Mean Corp Hgb Conc 31.7 g/dL (32-36); Mean Corpuscular Hgb 29.7 pg (27.0-32.0); Mean Corpuscular Volume 93.5 fL (81-99); Mean Platelet Vol. 11.1 fl (6.2-12.0); Monocyte# 0.35 X10^3/uL; Monocyte% 8.6 % (0-10); NRBC Flagged by Analyzer 0 % (0-5); Neutrophil # 1.98 X10^3/uL (2.7-7.7); Neutrophil % 48.9 % (47-70); Platelet Count 215 K/mm3 (150-450); RBC Distribution Width CV 12.3 % (11.6-14.6); RBC Distribution Width SD 42.5 fl (35.1-43.9); Red Blood Count 4.65 M/mm3 (4.2-5.4); White Blood Count 4.1 K/mm3 (4.4-11.0)
[2021-11-15 12:31] LABS: ALB/GLOB Ratio 0.9 RATIO (0.9-2.4); AST(SGOT) 14 U/L (15-37); Alanine Aminotransfer ALT/SGPT 28 U/L (13-56); Albumin, Serum 3.4 g/dL (3.2-5.0); Alkaline Phosphatase 108 U/L (45-117); Anion Gap 2 (5-15); BUN 24 mg/dL (7-18); BUN/Creat Ratio 27.7 RATIO (10-20); Calcium,Total 9.1 mg/dL (8.5-10.1); Chloride 111 mmol/L (98-107); Creatinine, Serum 0.86 mg/dL (0.55-1.02); EST Glomerular Filtration Rate 73 mL/min (>60); Est Glom Filt Rate - Afr Amer 88 mL/min (>60); Globulin 3.9 g/dL (2.2-4.2); Glucose 93 mg/dL (74-106); Potassium 3.9 mmol/L (3.5-5.1); Protein, Total 7.3 g/dL (6.4-8.2); Sodium Level 142 mmol/L (136-145)
[2021-11-15 13:11] LABS: Hepatitis B Surface Antibody Reactive
[2021-11-16 11:08] LABS: HEPATITIS B SURFACE AG Negative (Negative); Hepatitis A IgM Antibody Negative (Negative); Hepatitis B Core AB IgM Negative (Negative)
[2021-11-17 09:42] LABS: Hep C Antibodies <0.1 s/co ratio (0.0-0.9); Hepatitis A AB, Total Negative (Negative)
== END ==
PROVIDERS: PCP Family Medicine; Referring Provider Family Medicine; Visit Provider Family Medicine
DX: R16.0 Hepatomegaly, not elsewhere classified (principal)
CPT/HCPCS: 36415; 80053; 80074; 85025; 86706; 86708

== ENCOUNTER 2021-11-29 09:00 | Outpatient (CLI) | payer OTHER, SELFPAY ==
[2021-11-29] VITALS (9 sets, daily range): BP systolic 94–146; BP diastolic 47–79; PULSE 47–55; RESP 12–28; TEMP 36.3; O2SAT 93–100; BMI 38.7
--- NOTE | 2021-11-29 | ASPIGT_PTH ---
PATIENT: DANAY TRENT LOC: CT U#:[id number] AGE/SX: 51/F ROOM: RE11/29/[address]: Dr. Albert Chi MD : 1970 BED: DIS: 11/29/2021 SPEC #: [id number] RECD: 11/29/21 10:00 STATUS: JAEL BEE #: [id number] ANTOINETTE: 11/29/21 00:[address]: Albert Chi DEPT: SURGICAL PATHOLOGY RECD BY: Harshal Kumar Tissues: Liver, NOS Procedures: FNA Specimen Adequacy Special Stain Group II Surgery Specimen Level V Imprint (control) HEADER OPERATION: CT-guided liver biopsy PRE-OP DIAGNOSIS: Liver masses TISSUE SUBMITTED: Liver 18-gauge x4 MICROSCOPIC DIAGNOSIS Liver, CT-guided core biopsy: Fragments of hepatic tissue with focal micro- and macrovesicular steatosis (see comment). Fragments of skeletal muscle also present. Negative for malignancy. See microscopic description and comment. SJ:dae 12/07/2021 COMMENT The specimen is evaluated at the time of biopsy by Dr. Jordan. Immediate Evaluation = Hepatocytes are noted. Definite malignant cells are not identified. The specimen is sent to [facility] for expert opinion, reviewed by Dr. Cooney and the above diagnosis is rendered. Trichrome, reticulin, iron, PAS and PAS-D stains are performed with appropriate matched controls in the evaluation of the specimen. The complete report is viewable in the patient's EMR. Case has been reviewed in consultation with Dr. Grace who concurs with the above diagnosis. IDC:AM MICROSCOPIC DESCRIPTION Slides are reviewed. The specimen shows fragments of hepatic tissue with mature hepatocytes and mild fatty change and no cytological atypia. Some portal tracts are present. The hepatic cords are one to two cells thick, which is confirmed by reticulin stain. GROSS DESCRIPTION Received in fixative is one container labeled with the patient's name and designated liver mass, CT-guided core biopsy. The specimen consists of multiple elongated fragments of dee soft tissue that in aggregate measure 1.2 x 0.2 x 0.1 cm. The specimen is totally submitted in one cassette. Two touch imprints are prepared at the time of core biopsy. / KOURTNEY:dae 11/29/21 TC:5 CPT: 62917, 49358, 06469 x5
--- NOTE | 2021-11-29 09:11 | CT_ITS ---
PROCEDURE: CT DIRECTED CORE LIVER BIOPSY INDICATION: Female, 51 years old. LIVER MASS PHYSICIAN: Dr. HILARIO Retana CONSENT: Written informed consent was obtained having explained the risks, benefits and alternatives in detail with the patient who accepted the risks and agreed to proceed. Laboratory review and clinical assessment was performed. CONSCIOUS SEDATION PROTOCOL: The Drugs used were: 3 mg Versed, IV., and 75 mcg Fentanyl, IV. The sedation time was: 28 minutes. Conscious sedation was started at 10:11 AM and terminated at 1038. The conscious sedation protocol was independently monitored. RADIATION DOSAGE (If Supplied By Facility): CTDIvol = ( 18 ) mGy, DLP = ( 703.37 ) mGycm Individualized dose optimization techniques were used for this CT. TECHNIQUE: Using CT image guidance with image documentation, a suitable location in the right lobe of the liver was identified. Using a right lateral approach, puncture of the liver was uneventful with an 18-gauge core needle system. 4, 18-gauge core samples were obtained, and submitted in formalin to the pathologist for further assessment. Followup CT scan revealed no distinct sequelae. CT/Biopsy/Inj or Needle Placement IMPRESSION: 1. CT directed core needle biopsy of the liver, using CT image guidance with image documentation as described. 2. Conscious Sedation protocol utilized with independent monitoring. Electronically Signed: Narendra Cano MD at 10:53 EST , Service support ,
[2021-11-29 09:24] LABS: International Normalized Ratio 1.1; Prothrombin Time (Protime)PT. 13.8 SECONDS (11.7-14.9)
[2021-11-29 09:25] LABS: Partial Thromboplast Time 28.2 Seconds (24.1-36.2)
[2021-11-29] MEDS: fentaNYL 100 MCG/2 ML Ampul IV ×3 (10:11→11:07)
[2021-11-29] MEDS: Midazolam 2 MG/2 ML Syringe IV ×2 (10:11→10:36)
[2021-11-29] MEDS: Lidocaine 2% (20 ml mdv) 20 ML Vial INFILT (10:20)
== END 2021-11-29 23:59 | disposition home or self-care (01) ==
PROVIDERS: PCP Family Medicine; Referring Provider Family Medicine; Visit Provider Family Medicine
DX: K76.0 Fatty (change of) liver, not elsewhere classified (principal); N20.0 Calculus of kidney
CPT/HCPCS: 47000; 36415; 77012; 85610; 85730; 88172; 88305; 88307; 88313; 99156; J7040; A4216

== ENCOUNTER 2021-12-06 08:24 | Day surgery (SDC) | payer OTHER, SELFPAY ==
[2021-12-06 08:54] VITALS: BP 133/64; PULSE 55; RESP 16; TEMP 36.6; O2SAT 97; BMI 38.4
[2021-12-06] MEDS: Lactated Ringers 1,000 ML 15 ML IV (09:00)
--- NOTE | 2021-12-06 09:18 | HP.PCM_ITS ---
History and Physical Date of Admission: 12/06/21 ntake Visit Reasons: COLONOSCOPY Chief Complaint: colonoscopy Personal Development Mentor Required: No Is patient in pain?: No Allergies amoxicillin [From Augmentin] Allergy (Verified 11/27/21 14:44) Diarrhea clavulanic acid [From Augmentin] Allergy (Verified 11/27/21 14:44) Diarrhea hydrocodone bitartrate [From Vicodin] Adverse Reaction (Verified 11/27/21 14:44) Vomiting Medications sertraline 100 - 200 mg PO DAILY 10/07/13 [History Confirmed 11/27/21] celecoxib 200 mg PO DAILY 10/10/16 [History Confirmed 11/27/21] acetaminophen 325 mg capsule 325 mg PO ONCE PRN 01/04/20 [History Confirmed 11/27/21] cholecalciferol (vitamin D3) 50 mcg (2,000 unit) capsule 50 mcg PO DAILY 11/27/21 [History Confirmed 11/27/21] lansoprazole 30 mg capsule,delayed release 30 mg PO DAILY cap 11/27/21 [History Confirmed 11/27/21] magnesium 250 mg tablet 250 mg PO DAILY 11/27/21 [History Confirmed 11/27/21] potassium chloride 20 mEq tablet,extended release 20 meq PO DAILY 11/27/21 [History Confirmed 11/27/21] Is last menstrual period known: No Post menopausal: Yes Patient : No PFSH Medical History (Updated 11/28/21 @ 09:21 by Alyson PARHAM PA-C) Arthritis Encounter for screening colonoscopy GERD (gastroesophageal reflux disease) History of hemorrhoids History of pneumonia hx of leg injury Knee pain Surgical History (Updated 11/27/21 @ 14:52 by Caroline Gunn) Bilateral carpal tunnel syndrome H/O lateral meniscus repair of left knee H/O lateral meniscus repair of right knee History of arthroscopy of both knees History of bunionectomy History of facial surgery History of hemorrhoidectomy History of lumpectomy History of partial knee replacement history of uterine ablation Acuña neuroma Family History (Updated 11/27/21 @ 14:53 by Caroline Gunn) Father Heart disease Mother Diabetes Asthma Cancer Daughter Heart disease Seizures Social History Smoking Status: Never smoker alcohol intake: current alcohol intake frequency: holidays/special occasions only substance use type: does not use HPI HPI HPI: DANAY TRENT, is a 51 F who presents to the office today for screening colonoscopy and history of GERD. Patient has never had a colonoscopy previously. She notes a grandparent had colon cancer. She is unsure of which side. She notes her mother had melanoma of the colon which she had a colostomy placed within the last 5 years. She notes her mother just on 10/29/21. She states she woke up in the middle of the night on 11/14/21 with left flank pain. She proceeded to the ED. A CT scan of the ab/pel demonstrated multiple intrahepatic masses and a 2 mm calculus of the left ureter. Patient states she passed the kidney stone and the left flank pain has since resolved. An ultrasound of the abdomen was also performed which demonstrated the largest liver nodule is 3.6 x 2.9 x 3.1 cm. Patient is scheduled for liver biopsy on Saturday11/29/21. Patient denies change in bowel habits. She denies blood per rectum or melena. She denies abdominal pain currently. She notes taking lansoprazole for many years. She states she started taking the medication for heartburn. She is unsure what her symptoms are if she does not take it because she does not miss a dose. She has never had a colonoscopy or upper scope. She denies previous history of cardiac or pulmonary issues. She denies any previous complications with anesthesia. She notes a family history of a clotting disorder. She notes her mother and sister were/are on Eliquis for history of blood clots. Patient herself has never had blood clots previously. ROS General General: No weight change, appetite, fatigue, colon cancer, breast cancer or we akness HEENT HEENT: No difficulty swallowing, eye injury, eye surgery, swollen glands or hoarseness Endo Endocrine: No thyroid disease, diabetes mellitus, thyroid cancer, Hair loss, heat intolerance or cold intolerance Musc Musculoskeletal: Yes arthritis; No back problems, rheumatoid arthritis, gout or joint pain Cardio Cardiovascular: No murmur, pacemaker, heart disease, atrial fibrillation, high blood pressure, heart attack, heart stent, palpitations, shortness of breat with exertion or chest pain Psych Psychiatric: Yes anxiety; No depression or hearing voices Resp Respiratory: No shortness of breath, No sleep apnea, No cough, No COPD, No asthma, No emphysema and No wheezing Gastro Gastrointestinal: Yes abdominal pain, Yes nausea or vomiting, No diarrhea, No constipation, No blood in stool, Yes acid reflux, Yes hemorrhoids, No ulcers, No gallbladder problem and No black,tarry stools Jonathan Hematologic: No blood thinners, No blood disorders, No bleeding, No anemia and No blood clots Neuro Neurologic: No weakness Exam Const General: cooperative, healthy appearing, comfortable and no acute distress Nutritional Appearance: obese HENMT Head: normal to inspection Eyes General: appearance normal, both eyes and all related structures Neck Neck: normal visual inspection Neck mass: No Resp Effort & Inspection: normal respiratory effort Auscultation: clear to auscultation bilaterally Cardio Rate: regular rate Rhythm: regular rhythm GI Inspection: normal to inspection Palpation: soft Auscultation: normal bowel sounds Skin General: no rashes or lesions noted Neuro General: no focal motor deficits and CN's II-XI intact bilaterally Extrem General: edema Laterality: bilateral Location: lower Severity: pitting and 2+ Psych Appearance: grossly normal Affect: normal affect COVID (Procedure Consent) Procedure Criteria Procedure Criteria: Yes Elective The surgeon/proceduralist and patient have discussed in detail the risk of exposure to and/or potential harm posed by the COVID-19 virus with having a surgery/procedure at this time versus the risk of delaying the surgery/procedure. It is not possible to know either the risk of delaying the surgery or procedure or chance of getting an infection with perfect accuracy, but a joint decision was made between the patient and the surgeon/proceduralist to proceed at this time with the scheduled surgery/procedure as indicated on the consent form. Assessment and Plan Assessment and Plan (1) Encounter for screening colonoscopy: Status: Acute Plan - DEBBY HastingsC: Dr. Hinson will plan to perform an upper and lower endoscopy. Procedure details, risks and benefits have been explained. Patient has had the opportunity to ask and have questions answered. Patient will plan to proceed with a liver biopsy on Saturday. We will plan to perform the scopes after this procedure the following week or two. Plan to bowel prep with Miralax. Continue to hold aspirin until after the scopes. Patient verbally understands and agrees with the plan. (2) GERD (gastroesophageal reflux disease): Status: Acute Qualifiers: Esophagitis presence: esophagitis presence not specified Qualified Code(s): K21.9 - Gastro-esophageal reflux disease without esophagitis Coding Level of Care Code 84146 Diagnoses Encounter for screening colonoscopy Z12.11 GERD (gastroesophageal reflux disease) K21.9 Esophagitis presence: esophagitis presence not specified 11/28/21927<Electronically signed by Alyson PARHAM PA-C>Date Alyson PARHAM PA-C I have re-examined the patient. There are no clinical changes since date of exam. Denzel Hinson M.D., F.A.C.S.
--- NOTE | 2021-12-06 09:45 | EGD_PTH ---
PATIENT: DANAY TRENT LOC: EN U#:[id number] AGE/SX: 51/F ROOM: RE12/06/[address]: Dr. Denzel Hinson MD : 1970 BED: DIS: 12/06/2021 SPEC #: [id number] RECD: 12/06/21 12:33 STATUS: JAEL ROHIT #: [id number] ANTOINETTE: 12/06/21 09:[address]: Denzel Hinson DEPT: SURGICAL PATHOLOGY RECD BY: Malgorzata Bethea ENTERED: 12/06/21 13:18 SP TYPE: EGD BIOPSY OT DR: Dr. Albert Chi MD Tissues: A - Gastric mucous membrane B - Esophagus, NOS C - Stomach, NOS Procedures: Surgery Specimen Level IV HEADER OPERATION: Colonoscopy, EGD ([facility]) PRE-OP DIAGNOSIS: GERD, Screening TISSUE SUBMITTED: A ? Antrum biopsy for H. pylori and path, B ? Distal esophagus biopsy, C ? Greater curvature polyp biopsy MICROSCOPIC DIAGNOSIS A. Antrum, biopsy: Mild to moderate gastritis. See microscopic description and comment. B. Distal esophagus, biopsy: Fragments of squamous mucosa, no pathologic diagnosis. C. Greater curvature polyp, biopsy: Consistent with fundic gland polyp. SJ:rg 12/08/2021 COMMENT A. The results of immunohistochemistry for Helicobacter pylori will be reported separately ([id number]). MICROSCOPIC DESCRIPTION Slides are reviewed. A. The specimen shows fragments of gastric mucosa with chronic inflammatory cell infiltrates in the lamina propria consisting of lymphocytes and plasma cells, consistent with mild to moderate chronic gastritis. GROSS DESCRIPTION A - Received in fixative is one container labeled with the patient's name and designated antrum biopsy. The specimen consists of one irregular fragment of light dee soft tissue that measures 0.3 x 0.3 x 0.1 cm. The specimen is totally submitted in one cassette. B - Received in fixative is one container labeled with the patient's name and designated distal esophagus biopsy. The specimen consists of two irregular fragments of light dee soft tissue that in aggregate measure 0.5 x 0.3 x 0.1 cm. The specimen is totally submitted in one cassette. C - Received in fixative is one container labeled with the patient's name and designated greater curvature polyp biopsy. The specimen consists of one irregular fragment of light dee soft tissue that measures 0.3 x 0.3 x 0.1 cm. The specimen is totally submitted in one cassette. / AM:dae 12/07/2021 TC:3 CPT: 26294 x3
--- NOTE | 2021-12-06 09:45 | IMM_PTH ---
PATIENT: DANAY TRENT LOC: EN U#:[id number] AGE/SX: 51/F ROOM: RE12/06/[address]: Dr. Denzel Hinson MD : 1970 BED: DIS: 12/06/2021 SPEC #: [id number] RECD: 12/06/21 14:30 STATUS: JAEL REKia #: [id number] ANTOINETTE: 12/06/21 09:[address]: Denzel Hinson DEPT: IMMUNOHISTOCHEMISTRY RECD BY: Emily Grajeda ENTERED: 12/06/21 14:30 SP TYPE: IMMUNO OTHR DR: Dr. Albert Chi MD Tissues: A - Stomach, NOS Procedures: H Pylori (initial) PHYSICIAN & INSTITUTION [place] [address] SPECIMEN INFORMATION: Tissue Source: A ? Antrum biopsy Clinical Info: GERD, screening Specimen Number: [id number] CPT code: 55628 METHODOLOGY: Deparaffinized sections of prefer/formalin-fixed tissue or PAP/DQ stained slides are incubated with monoclonal/polyclonal antibodies/oligonucleotide probes. Localization is made via biotin free immunoperoxidase method. Appropriate controls are performed and reacted as expected. Results on target cell population are indicated in the following table: RESULTS: ANTIBODY / CLONE RESULT Block A H Pylori (polyclonal) negative These tests were developed and their performance characteristics determined by [facility]. They may not have been cleared or approved by the U.S. Food and Drug Administration. The FDA has determined that such clearance or approval is not necessary. INTERPRETATION: A. Antrum biopsy: Negative for Helicobacter pylori organisms. SJ:dae 12/11/2021
[2021-12-06 10:11] VITALS: BP 108/60; BP 133/64; PULSE 64; RESP 16; TEMP 36.1; O2SAT 22
--- NOTE | 2021-12-06 10:14 | OP.EGD_ITS ---
Patient Name: Donna Moreno Procedure Date: 12/06/2021 9:30 AM Date of : 1970 Age: 51 Procedure: Upper GI endoscopy Indications: Abnormal CT of the GI tract Providers: Denzel Hinson MD Medicines: See the Anesthesia note for documentation of the administered medications Complications: No immediate complications. Procedure: Pre-Anesthesia Assessment: - Prior to the procedure, a History and Physical was performed, and patient medications and allergies were reviewed. The patient's tolerance of previous anesthesia was also reviewed. The risks and benefits of the procedure and the sedation options and risks were discussed with the patient. All questions were answered, and informed consent was obtained. Prior Anticoagulants: The patient has taken no previous anticoagulant or antiplatelet agents. ASA Grade Assessment: II - A patient with mild systemic disease. After reviewing the risks and benefits, the patient was deemed in satisfactory condition to undergo the procedure. After obtaining informed consent, the endoscope was passed under direct vision. Throughout the procedure, the patient's blood pressure, pulse, and oxygen saturations were monitored continuously. The Endoscope was introduced through the mouth, and advanced to the second part of duodenum. The upper GI endoscopy was accomplished without difficulty. The patient tolerated the procedure well. Scope In: 9:43:07 AM Scope Out: 9:48:46 AM Total Procedure Duration Time 0 hours 5 minutes 39 seconds Findings: A small hiatal hernia was present. Biopsies were taken with a cold forceps for histology. The Z-line was regular and was found 35 cm from the incisors. Diffuse moderately erythematous mucosa without bleeding was found in the gastric antrum. Biopsies were taken with a cold forceps for histology. A few sessile polyps with no stigmata of recent bleeding were found on the greater curvature of the stomach. The polyp was removed with a cold biopsy forceps. Resection and retrieval were complete. The examined duodenum was normal. Impression: - Small hiatal hernia. Biopsied. - Z-line regular, 35 cm from the incisors. - Erythematous mucosa in the antrum. Biopsied. - A few gastric polyps. Resected and retrieved. - Normal examined duodenum. Recommendation: - Telephone my office for pathology results in 1 week. - Continue present medications. Procedure Code(s): --- Professional --- 22327, Esophagogastroduodenoscopy, flexible, transoral; with biopsy, single or multiple Diagnosis Code(s): --- Professional --- K44.9, Diaphragmatic hernia without obstruction or gangrene K31.89, Other diseases of stomach and duodenum K31.7, Polyp of stomach and duodenum R93.3, Abnormal findings on diagnostic imaging of other parts of digestive tract CPT copyright 2017 [employer]. All rights reserved. The codes documented in this report are preliminary and upon auto crane driver review may be revised to meet current compliance requirements. Denzel Hinson MD 12/06/2021 10:14:18 AM This report has been signed electronically. Number of Addenda: 0 Note Initiated On: 12/06/2021 9:30 AM
[2021-12-06 10:15] VITALS: BP 106/60; BP 133/64; PULSE 56; RESP 16; O2SAT 97
--- NOTE | 2021-12-06 10:15 | OP.CCLET_ITS ---
12/06/2021 Albert Chi MD [address] [place] [address] Re : Upper GI endoscopy procedure for Donna Moreno Dear Dr. Chi This procedure was performed on Monday, December 06, 2021. My impressions and recommendations are as follows: Impressions : - Small hiatal hernia. Biopsied. - Z-line regular, 35 cm from the incisors. - Erythematous mucosa in the antrum. Biopsied. - A few gastric polyps. Resected and retrieved. - Normal examined duodenum. Recommendations : - Telephone my office for pathology results in 1 week. - Continue present medications. My findings are described in the full procedure note, which is enclosed. If I can be of further assistance, please feel free to contact me at Doctor phone number(s): Work: . Sincerely, Denzel Hinson MD 12/06/2021 10:14:18 AM This report has been signed electronically.
--- NOTE | 2021-12-06 10:18 | OP.CCLET_ITS ---
12/06/2021 Albert Chi MD [address] [place] [address] Re : Colonoscopy procedure for Donna Moreno Dear Dr. Chi This procedure was performed on Monday, December 06, 2021. My impressions and recommendations are as follows: Impressions : - Decreased sphincter tone, non-thrombosed external hemorrhoids, non-thrombosed internal hemorrhoids and internal hemorrhoids that prolapse with straining, but spontaneously regress to the resting position (Grade II) found on digital rectal exam. - Diverticulosis in the sigmoid colon. - The examination was otherwise normal. - No specimens collected. Recommendations : - Discharge patient to home. - Resume previous diet. - Continue present medications. - Repeat colonoscopy in 10 years for screening purposes. My findings are described in the full procedure note, which is enclosed. If I can be of further assistance, please feel free to contact me at Doctor phone number(s): Work: . Sincerely, Denzel Hinson MD 12/06/2021 10:17:19 AM This report has been signed electronically.
--- NOTE | 2021-12-06 10:18 | OP.COLON_ITS ---
Patient Name: Donna Moreno Procedure Date: 12/06/2021 9:49 AM Date of : 1970 Age: 51 Procedure: Colonoscopy Indications: Abnormal CT of the GI tract Providers: Denzel Hinson MD Medicines: See the Anesthesia note for documentation of the administered medications Patient Profile: Last Colonoscopy: date unknown. Complications: No immediate complications. Procedure: Pre-Anesthesia Assessment: - Prior to the procedure, a History and Physical was performed, and patient medications and allergies were reviewed. The patient's tolerance of previous anesthesia was also reviewed. The risks and benefits of the procedure and the sedation options and risks were discussed with the patient. All questions were answered, and informed consent was obtained. Prior Anticoagulants: The patient has taken no previous anticoagulant or antiplatelet agents. ASA Grade Assessment: II - A patient with mild systemic disease. After reviewing the risks and benefits, the patient was deemed in satisfactory condition to undergo the procedure. After I obtained informed consent, the scope was passed under direct vision. Throughout the procedure, the patient's blood pressure, pulse, and oxygen saturations were monitored continuously. The colonoscope was introduced through the anus and advanced to the cecum, identified by appendiceal orifice and ileocecal valve. The colonoscopy was performed without difficulty. The patient tolerated the procedure well. The quality of the bowel preparation was good. The ileocecal valve and the appendiceal orifice were photographed. Scope In: 9:52:27 AM Scope Withdrawal Time 0 hours 6 minutes 55 seconds Scope Out: 10:06:59 AM Total Procedure Duration Time 0 hours 14 minutes 32 seconds Findings: The digital rectal exam findings include decreased sphincter tone, non-thrombosed external hemorrhoids, non-thrombosed internal hemorrhoids and internal hemorrhoids that prolapse with straining, but spontaneously regress to the resting position (Grade II). Scattered diverticula were found in the sigmoid colon. The exam was otherwise without abnormality. Impression: - Decreased sphincter tone, non-thrombosed external hemorrhoids, non-thrombosed internal hemorrhoids and internal hemorrhoids that prolapse with straining, but spontaneously regress to the resting position (Grade II) found on digital rectal exam. - Diverticulosis in the sigmoid colon. - The examination was otherwise normal. - No specimens collected. Recommendation: - Discharge patient to home. - Resume previous diet. - Continue present medications. - Repeat colonoscopy in 10 years for screening purposes. Procedure Code(s): --- Professional --- 39588, Colonoscopy, flexible; diagnostic, including collection of specimen(s) by brushing or washing, when performed (separate procedure) Diagnosis Code(s): --- Professional --- K62.89, Other specified diseases of anus and rectum K64.1, Second degree hemorrhoids K64.4, Residual hemorrhoidal skin tags K57.30, Diverticulosis of large intestine without perforation or abscess without bleeding R93.3, Abnormal findings on diagnostic imaging of other parts of digestive tract CPT copyright 2017 [employer]. All rights reserved. The codes documented in this report are preliminary and upon business strategy manager review may be revised to meet current compliance requirements. Denzel Hinson MD 12/06/2021 10:17:19 AM This report has been signed electronically. Number of Addenda: 0 Note Initiated On: 12/06/2021 9:49 AM
[2021-12-06 10:20] VITALS: BP 108/64; BP 133/64; PULSE 56; RESP 16; O2SAT 99
[2021-12-06 10:25] VITALS: BP 109/59; BP 133/64; PULSE 54; RESP 16; O2SAT 98
[2021-12-06 10:30] VITALS: BP 115/62; BP 133/64; PULSE 50; RESP 16; TEMP 36.6; O2SAT 99
== END 2021-12-06 23:59 | disposition home or self-care (01) ==
LOC: EN 08:25 → AC 08:25
PROVIDERS: PCP Family Medicine; Referring Provider Family Medicine; Visit Provider Surgery
PROC: 0DJD8ZZ Inspection of Lower Intestinal Tract, Via Natural or Artificial Opening Endoscopic (ICD-10-PCS; CPT 45378; principal; 2021-12-06 09:40)
DX: K29.70 Gastritis, unspecified, without bleeding (principal); K64.4 Residual hemorrhoidal skin tags; K44.9 Diaphragmatic hernia without obstruction or gangrene; K31.7 Polyp of stomach and duodenum; K57.30 Diverticulosis of large intestine without perforation or abscess without bleeding; M19.90 Unspecified osteoarthritis, unspecified site; K21.9 Gastro-esophageal reflux disease without esophagitis; K64.1 Second degree hemorrhoids; Z87.01 Personal history of pneumonia (recurrent); Z78.0 Asymptomatic menopausal state; Z86.16 Personal history of COVID-19; G25.81 Restless legs syndrome; G56.03 Carpal tunnel syndrome, bilateral upper limbs
CPT/HCPCS: 45378; 43239; 88305; 88342; J7120

== ENCOUNTER → 2022-05-18 | Outpatient (CLI) | payer OTHER, SELFPAY ==
--- NOTE | 2022-05-18 11:39 | RAD_ITS ---
STUDY: X-RAY - RIGHT KNEE REASON FOR EXAM: Female, 51 years old. Knee pain. TECHNIQUE: 4 view(s) of the knee. COMPARISON: 02/10/2021. FINDINGS: Osteopenia. Normal visualized distal femur. Normal visualized proximal tibia and fibula. Normal proximal tibiofibular articulation. Moderate arthrosis of the medial compartment, unchanged. Normal lateral femorotibial compartment. Slight lateral tilt of the patella on the sunrise view unchanged Soft tissue calcification adjacent to the medial femoral condyle is essentially unchanged. RAD/Knee 4 or More Views IMPRESSION: Stable osteopenia, moderate arthrosis of the medial lateral tilt of the patella and medial soft tissue calcification. No acute abnormality, evidence of erosive changes or fusion. Electronically Signed: Sergo Morris MD at 13:21 EDT ,
== END | disposition home or self-care (01) ==
LOC: MTRAD 11:37
PROVIDERS: PCP Family Medicine; Referring Provider Physician Assistant Surgical; Visit Provider Physician Assistant Surgical
DX: M17.11 Unilateral primary osteoarthritis, right knee (principal)
CPT/HCPCS: 73564

== ENCOUNTER → 2022-06-04 | Outpatient (CLI) | payer OTHER, SELFPAY ==
--- NOTE | 2022-06-04 12:35 | MRI_ITS ---
STUDY: MRI RIGHT KNEE REASON FOR EXAM: Female, 51 years old. Right knee osteoarthritis TECHNIQUE: Standardized fat and water weighted pulse sequences were obtained in all 3 orthogonal planes. COMPARISON: Plain film right knee dated 01/28/2020. MRI right knee dated 01/28/2020 FINDINGS: Increased abnormal signal in the posterior horn of the medial meniscus as compared to the prior exam compatible with chronic tear. This extends to the mid body with increased fluid. Stable partial meniscal extrusion anteriorly and posteriorly. Extensive and large medial compartment osteophytosis with significant cartilaginous thinning and irregularity. Normal medial femoral condyle and tibial plateau. As seen on prior MRI and x-ray, there are several calcific densities outside of the joint space at the medial compartment. Normal medial collateral ligamentous complex (MCL). Normal distal semimembranosus, gracilis and semitendinosus tendons. Normal lateral meniscus. Small lateral compartment osteophytosis with mild cartilaginous thinning. Normal lateral femoral condyle and tibial plateau. Normal proximal tibiofibular articulation. Normal lateral collateral (fibular) ligament. Normal popliteus tendon. Normal biceps femoris tendon. Normal anterior cruciate ligament (ACL). Normal posterior cruciate ligament (PCL). Moderate full-thickness cartilaginous fissuring at the patellofemoral compartment. Patellofemoral osteophytosis. Normal medial and lateral patellar retinaculum. Normal quadriceps tendon. Normal patellar tendon. Normal Hoffa''s fat pad. Trace joint effusion. The soft tissues are unremarkable. The otherwise visualized osseous structures are unremarkable. MRI/Lower Ext Joint Only (Routine) IMPRESSION: 1. Tricompartment osteophytosis, most prominent in the medial compartment. Posterior horn medial meniscal tear, more advanced as compared to prior exam extending to the meniscal root. Partial medial meniscal extrusion 2. Calcific densities as seen on plain film outside of the joint space in the medial compartment region; stable from prior exam 3. Tricompartmental cartilaginous partial and full thickness fissuring without large full-thickness tear. Most pronounced in the medial compartment. 4. Trace joint effusion 5. Remaining surrounding ligaments and tendons are intact Electronically Signed: Tommie Alcantar DO at 6:57 EDT ,
== END | disposition home or self-care (01) ==
LOC: MRI 12:24
PROVIDERS: PCP Family Medicine; Referring Provider Physician Assistant Surgical; Visit Provider Physician Assistant Surgical
DX: M17.11 Unilateral primary osteoarthritis, right knee (principal)
CPT/HCPCS: 73721

== ENCOUNTER 2022-06-26 07:09 | Emergency (ER) | payer OTHER, SELFPAY ==
[2022-06-26 07:10] VITALS: BP 132/85; PULSE 76; RESP 18; TEMP 36.5; O2SAT 99; BMI 40.0
--- NOTE | 2022-06-26 07:33 | EDS_ITS ---
HPI History of Present Illness Chief Complaint: Flank Pain Informant: patient Narrative Narrative: Patient is a 51-year-old female with remote history of kidney stones presenting with sudden onset of left flank pain. Patient states she was getting out of her car when suddenly she had severe pain. Describes it as taking her breath away and sharp. Pain is been intermittent and comes in waves. Has associated nausea. No vomiting. Denies any urinary symptoms. Denies any trauma or falls. Denies any numbness or weakness of her legs. States she felt well when she woke up this morning and felt well yesterday. No other complaints at this time. Did not take anything prior to arrival. No she does take Tylenol regularly. [facility] Medical History Alcohol use Arthritis [facility] Encounter for screening colonoscopy Gastric reflux GERD (gastroesophageal reflux disease) History of bradycardia History of Clostridium difficile infection History of edema History of GI bleed History of hemorrhoids History of pneumonia hx of leg injury Knee pain Leg cramps Restless legs Shortness of breath on exertion Wears contact lenses Home Medications sertraline 100 mg tablet 100 - 200 mg PO DAILY 10/07/13 [History Last Taken Unknown] celecoxib 200 mg capsule 200 mg PO DAILY 10/10/16 [History Last Taken Unknown] acetaminophen 325 mg capsule (Tylenol) 325 mg PO ONCE PRN Pain 01/04/20 [History Last Taken Unknown] lansoprazole 30 mg capsule,delayed release 30 mg PO DAILY 11/27/21 [History Last Taken Unknown] magnesium 250 mg tablet 250 mg PO DAILY 11/27/21 [History Last Taken Unknown] potassium chloride 20 mEq tablet,extended release 20 meq PO DAILY 11/27/21 [History Last Taken Unknown] aspirin 81 mg capsule 81 mg PO DAILY 11/30/21 [History Last Taken Unknown] cholecalciferol (vitamin D3) 125 mcg (5,000 unit) tablet (Vitamin D3) 500 mcg PO DAILY 11/30/21 [History Last Taken Unknown] cyclobenzaprine 5 mg tablet 5 mg PO TID PRN muscle spasm #30 tabs 02/23/22 [Rx Last Taken Unknown] oxycodone 5 mg capsule 5 mg PO Q8H PRN pain 3 days #9 caps 06/26/22 [Rx Last Taken Unknown] Allergy/AdvReac Type Severity Reaction Status Date / Time amoxicillin [From Augmentin] Allergy Diarrhea Verified 06/26/22 07:12 clavulanic acid Allergy Diarrhea Verified 06/26/22 07:12 [From Augmentin] hydrocodone bitartrate AdvReac Other Verified 06/26/22 07:12 [From Vicodin] Family History Father Heart disease Mother Diabetes Asthma Cancer Daughter Heart disease Seizures Surgical History Bilateral carpal tunnel syndrome H/O lateral meniscus repair of left knee H/O lateral meniscus repair of right knee History of arthroscopy of both knees History of bunionectomy History of hemorrhoidectomy History of liver biopsy History of lumpectomy of left breast History of partial knee replacement History of tubal ligation history of uterine ablation History of wisdom tooth extraction Acuña neuroma Social History Smoking Status: Never smoker alcohol intake: current alcohol intake frequency: holidays/special occasions only substance use type: does not use ROS ROS ED Constitutional Constitutional ED: Denies chills or fever(s) Eyes Eyes: Denies change in vision ENT ENT ED: Denies sore throat Cardiovascular Cardiovascular: Denies chest pain or palpitations Respiratory/Chest Respiratory/Chest: Denies cough Gastrointestinal Gastrointestinal: Reports nausea; Denies abdominal pain, constipation, diarrhea or vomiting Genitourinary Genitourinary ED: Denies dysuria, hematuria or urinary frequency Musculoskeletal Musculoskeletal: Reports back pain; Denies arthralgias, myalgias or neck pain Integumentary Denies rash Neurologic Neurologic: Denies headache(s) or paresthesias Psychiatric Psychiatric: Denies anxiety EXAM Physical Exam Const Vital Signs: 06/26/22 07:10 Temperature 97.7 F L Temperature Source Temporal Pulse Rate 76 Respiratory Rate 18 Blood Pressure 132/85 H Blood Pressure Mean 100 Pulse Ox 99 Oxygen Delivery Method Room Air Positive well nourished and well developed General Appearance ED: well developed and NAD HEENT Reports moist mucous membranes Eyes PERRL and EOMs intact bilaterally Neck supple Chest Wall inspection of chest normal and palpation of chest normal Resp normal respiratory effort and clear to auscultation bilaterally Cardio regular rate, regular rhythm and no murmurs GI normal to inspection, nondistended, normoactive bowel sounds, non-tender and no masses Back/Spine no CVA tenderness Thoracic Spine / Upper Back: Negative for thoracic spinal tenderness or paraspinal muscle tenderness Lumbar Spine / Lower Back: Negative for lumbar spinal tenderness Extremity normal to inspection General Extremety ED: Negative for tenderness Neuro oriented x3 Motor Exam: strength 5/5 throughout; Negative for general weakness Psych mental status grossly normal Skin no rashes or lesions noted and no wounds MDM MDM MDM Narrative Medical decision making narrative: Patient evaluate for colicky left flank pain. Differential includes renal colic, pyelonephritis and muscle skeletal pain. Will obtain urinalysis, CBC, BMP and CT of the abdomen pelvis. Given pain medication, nausea medicine and IV fluids. Repeat evaluation patient is more comfortable. She states as long as she does not move she has no pain. Pain is now localized to left lumbar paraspinal region at the level of L4. She does not have any red flag cauda equina symptoms. Her CT is negative for any acute process. CBC normal. Urinalysis normal not consistent with infection and there is no significant blood or white blood cells in the urine. BMP is near her baseline. Creatinine is mildly elevated however patient is given IV fluids in the emergency room. Patient states he has not drank any water this morning. Given the negative work-up and the fact that movement greatly exacerbates symptoms I suspect this is muscle skeletal. She states she has muscle relaxers to take at home. Is given a dose in the emergency room as well as a Lidoderm patch. Counseled this could be muscle skeletal some or possibly herniated disc. Will be given a short course of Percocet for pain control at home. Counseled to follow-up with primary care doctor as needed. Given return precautions. Does have a ride home. Lab Data Attestation: I reviewed the patient's lab results. Labs: Laboratory Results - last 24 hr 06/26/22 06/26/22 06/26/22 07:30 07:50 07:50 WBC 4.7 RBC 4.80 Hgb 14.5 Hct 43.9 MCV 91.5 MCH 30.2 MCHC 33.0 RDW Std Deviation 40.7 RDW Coeff of Veronica 12.2 Plt Count 207 MPV 10.4 Immature Gran % (Auto) 0.200 Neut % (Auto) 45.5 L Lymph % (Auto) 40.9 [place] % (Auto) 8.6 Eos % (Auto) 3.9 Baso % (Auto) 0.9 Absolute Neuts (auto) 2.1 Absolute Lymphs (auto) 1.90 Nucleated RBC % 0 Sodium 141 Potassium 4.4 Chloride 112 H Carbon Dioxide 24.0 Anion Gap 5 BUN 23 H Creatinine 1.06 H Estim Creat Clear Calc 57.46 Est GFR (MDRD) Af Amer 70 Est GFR (MDRD) Non-Af 58 L BUN/Creatinine Ratio 21.7 H Glucose 110 H Calcium 8.8 Urine Color Yellow Urine Clarity Sl. Cloudy Urine pH 5.0 Ur Specific [place] 1.020 Urine Protein Negative Urine Glucose (UA) Normal Urine Ketones Negative Urine Occult Blood 10 H Urine Nitrite Negative Urine Bilirubin Negative Urine Urobilinogen Normal Ur Leukocyte Esterase 25 H Urine RBC 0-5 SEEN Urine WBC 0-5 SEEN Ur Squamous Epith Cells 0 SEEN Urine Bacteria 0 SEEN Urine Mucus 0 SEEN Radiography Diagnostic Testing: Clinical Impression(s) from Imaging Studies Abdomen/Pelvis CT 06/26/22 07:37 IMPRESSION: No evidence of obstructive uropathy, no evidence of renal or ureteric stones is seen. No evidence of acute abdominal pathology. Multiple low-attenuation lesions visualized within the liver demonstrating no significant change in comparison to the prior study, lesions demonstrate low attenuation in the center, note is made that these lesions were faintly visualized on the CT scan of the chest obtained on 05/08/2017 Electronically Signed: Alcon Adrian MD at 8:28 EDT Reading Location ID and State: [facility] / [place] Tel , Service support , Discharge Plan Triage Chief Complaint: Flank Pain ED Provider: Sara Paredes Dx/Rx/DC Orders Clinical Impression: Low back pain, Muscle spasm Instructions: ED Back Spasm, No Trauma Prescriptions: New oxycodone 5 mg capsule 5 mg PO Q8H PRN (Reason: pain) 3 Days Qty: 9 0RF No Action acetaminophen [Tylenol] 325 mg capsule 325 mg PO ONCE PRN (Reason: Pain) lansoprazole 30 mg capsule,delayed release(DR/EC) 30 mg PO DAILY magnesium 250 mg tablet 250 mg PO DAILY potassium chloride 20 mEq tablet extended release 20 meq PO DAILY sertraline 100 MG tablet 100 - 200 mg PO DAILY Label Comments: depression/anxiety celecoxib 200 MG capsule 200 mg PO DAILY Label Comments: pain/inflammation cholecalciferol (vitamin D3) [Vitamin D3] 125 mcg (5,000 unit) Tablet 500 mcg PO DAILY aspirin 81 mg Capsule 81 mg PO DAILY Rx Instructions: stopped on 11/17/21 cyclobenzaprine 5 mg tablet 5 mg PO TID PRN (Reason: muscle spasm) Qty: 30 3RF Primary Care Provider: Albert Chi Referrals: Albert Chi MD [Primary Care Provider] - Disposition Disposition: Home, Self Care
[2022-06-26 07:36] LABS: Bacteria 0 SEEN /hpf (None Seen); Mucous, Urine 0 SEEN /hpf (<or=2+); Squamous Epithelial Cells - UA 0 SEEN /hpf (5-10)
--- NOTE | 2022-06-26 07:37 | CT_ITS ---
INDICATION: left flank pain EXAMINATION: CT ABDOMEN AND PELVIS WITHOUT CONTRAST - CT Abdomen And Pelvis W/O Contrast Injection TECHNIQUE: Helically acquired images were obtained of the abdomen and pelvis without oral or IV contrast. A radiation dose optimization technique was used for this scan. IV Contrast dosage and agent: None. Oral contrast: None. COMPARISON: 11/14/2024 and 05/08/2017. FINDINGS: LOWER CHEST: Lung bases are clear. No cardiomegaly or pericardial effusion. LIVER: Multiple low-attenuation lesions visualized within the liver, in the dome of the liver on the right lobe on axial series 2; image 17 there is a 4.7 x 2.9 cm lesion, on image 22 there is a 4.9 x 2.9 cm lesion seen. In the inferior right lobe on image 56 there is a 2.7 x 2.2 cm lesion seen and on image 61 there is a 1.8 cm lesion seen. Views demonstrate no significant increase in comparison to the prior study. GALLBLADDER AND BILIARY TREE: No calcified gallstones. No gallbladder distension or wall edema. No intra- or extrahepatic biliary ductal dilation. PANCREAS: No focal cystic or solid mass. SPLEEN: Normal size without focal cystic or solid mass. ADRENAL GLANDS: No nodules. KIDNEYS AND URETERS: Normal renal size and position. No hydronephrosis. No evidence of renal or ureteric stones is visualized. No evidence of obstructive uropathy. A 4 mm calcification is visualized along the medial aspect of the left perirenal space demonstrates no significant change in comparison to the prior study, has no relation to the ureter. PERITONEUM: No ascites or free air. No other fluid collection. BOWEL: No evidence of acute appendicitis. No stomach or bowel distension. No focal inflammatory change. Abundance of stool visualized in the large bowel, limited evaluation of the bowel loops demonstrates no evidence of masses. LYMPH NODES: No enlarged mesenteric or retroperitoneal lymph nodes. VESSELS: Aorta is non-dilated. URINARY BLADDER: Unremarkable. REPRODUCTIVE ORGANS: Anteverted uterus unremarkable, bilateral fallopian tube clips seen. The ovaries are unremarkable. No pelvic masses. ABDOMINAL WALL: No discrete abdominal or pelvic wall hernia. BONES: No lytic or blastic abnormality. Degenerative bone changes are seen. CT/Abdomen/Pelvis without Cont IMPRESSION: No evidence of obstructive uropathy, no evidence of renal or ureteric stones is seen. No evidence of acute abdominal pathology. Multiple low-attenuation lesions visualized within the liver demonstrating no significant change in comparison to the prior study, lesions demonstrate low attenuation in the center, note is made that these lesions were faintly visualized on the CT scan of the chest obtained on 05/08/2017 Electronically Signed: Alcon Adrian MD at 8:28 EDT ,
[2022-06-26] MEDS: Ondansetron 4 MG/2 ML Vial IV (07:46)
[2022-06-26] MEDS: Ketorolac 15 MG/ML Vial IV (07:46)
[2022-06-26] MEDS: Morphine 4 MG/ML Syringe IV (07:47)
[2022-06-26] MEDS: 0.9% Normal Saline 1,000 ML 250 ML IV (07:54)
[2022-06-26 07:58] LABS: Absolute Neutrophil Count 2.1 X10^3/uL (2.0-7.7); Basophil# 0.04 X10^3/uL; Basophil% 0.9 % (0-1); Eosinophil# 0.18 X10^3/uL; Eosinophils% 3.9 % (0-5); Hematocrit 43.9 % (37-47); Hemoglobin 14.5 g/dL (12.0-15.0); Lymphocyte % 40.9 % (19-41); Mean Corpuscular Hgb 30.2 pg (27.0-32.0); Mean Corpuscular Volume 91.5 fL (81-99); Mean Platelet Vol. 10.4 fl (6.2-12.0); Monocyte% 8.6 % (0-10); NRBC Flagged by Analyzer 0 % (0-5); Neutrophil # 2.12 X10^3/uL (2.7-7.7); Neutrophil % 45.5 % (47-70); Platelet Count 207 K/mm3 (150-450); RBC Distribution Width CV 12.2 % (11.6-14.6); RBC Distribution Width SD 40.7 fl (35.1-43.9); White Blood Count 4.7 K/mm3 (4.4-11.0)
[2022-06-26 08:09] LABS: Anion Gap 5 (5-15); BUN 23 mg/dL (7-18); BUN/Creat Ratio 21.7 RATIO (10-20); Calcium,Total 8.8 mg/dL (8.5-10.1); Chloride 112 mmol/L (98-107); Creatinine, Serum 1.06 mg/dL (0.55-1.02); EST Glomerular Filtration Rate 58 mL/min (>60); Est Glom Filt Rate - Afr Amer 70 mL/min (>60); Estimated Creatinine Clearance 57.46 ml/min; Glucose 110 mg/dL (74-106); Potassium 4.4 mmol/L (3.5-5.1); Sodium Level 141 mmol/L (136-145)
[2022-06-26 08:23] LABS: Color, Urine Yellow (Yellow); Glucose, Dipstick Normal (Normal); Ketone-Dipstick Negative (Negative); Leukocyte Esterase-Dipstick 25 /ul (Negative); Nitrite-Dipstick Negative (Negative); Occult Blood-Urine 10 /ul (Negative); Protein-Dipstick Negative (Negative); Urine Bilirubin Dipstick Negative (Negative); Urine Clarity Sl. Cloudy (Clear); Urine Urobilinogen Normal (Normal)
[2022-06-26 08:29] LABS: Red Blood Cells-Urine 0-5 SEEN /hpf (0-5); White Blood Cells 0-5 SEEN /hpf (0-5)
[2022-06-26] MEDS: cycloBENZAPRine HCl 10 MG Tablet PO (08:49)
[2022-06-26] MEDS: Lidocaine 5% Patch 1 PATCH TOPICAL (08:49)
== END 2022-06-26 09:31 | disposition home or self-care (01) ==
PROVIDERS: Emergency Provider Emergency Medicine; PCP Family Medicine; Visit Provider Emergency Medicine
DX: M54.50 Low back pain, unspecified (principal); M62.838 Other muscle spasm
CPT/HCPCS: 74176; 80048; 81001; 85025; 96374; 96375; 99283; J7030; J2405

== ENCOUNTER → 2022-09-14 | Outpatient (CLI) | payer OTHER, SELFPAY ==
--- NOTE | 2022-09-14 13:49 | BI_ITS ---
MAMMOGRAPHY - BILATERAL SCREENING 3-D TOMOSYNTHESIS REASON FOR EXAM: Female, 51 years old. Routine screening PERTINENT HISTORY: Personal history of breast cancer.. TECHNIQUE: 2-D mammograms and 3-D Tomosynthesis of the breast (s) were performed. CAD was performed. COMPARISON: 07/17/2021 FINDINGS: The breast composition is almost entirely fat. Scattered benign calcifications are seen. No dense spiculated masses or suspicious microcalcifications are identified. Stable architectural distortion in the left breast from previous surgery. There is no skin thickening or retraction. There has been no significant change since the prior study. BI/SCRN MAMM (CAD)W/TEODORO BILAT IMPRESSION: No mammographic signs of malignancy. Routine yearly mammograms recommended. ASSESSMENT CATEGORY: BIRADS Category 1: Negative. A letter regarding these results will be sent to the patient by the facility within 30 days. FOLLOW UP RECOMMENDATION: Yearly follow up mammogram recommended. (A) Approximately 10% of breast cancers are not detected by mammography. A normal mammogram should not delay biopsy of a clinically suspicious abnormality. Electronically Signed: Dennis King MD at 14:49 EDT ,
== END | disposition home or self-care (01) ==
PROVIDERS: PCP Family Medicine; Visit Provider Obstetrics & Gynecology
DX: Z12.31 Encounter for screening mammogram for malignant neoplasm of breast (principal)
CPT/HCPCS: 77063; 77067

== ENCOUNTER → 2022-12-07 | Outpatient (CLI) | payer OTHER, SELFPAY ==
--- NOTE | 2022-12-07 15:16 | RAD_ITS ---
STUDY: X-RAY - PELVIS AND LEFT HIP REASON FOR EXAM: Female, 52 years old. Chronic posterior left hip pain. Patient also fell today. TECHNIQUE: 3 views of the pelvis and hip. COMPARISON: None. FINDINGS: There is a non-specific bowel gas pattern. Normal visualized soft tissue structures. Tubal ligation clips and phleboliths are seen in the pelvis. Normal bilateral iliac wings, sacroiliac joints and visualized sacrum. Normal bilateral superior and inferior pubic rami. Normal pubic symphysis. Normal bilateral ischial tuberosities. Normal visualized left femoral head. Normal left acetabulum. Normal left hip joint. RAD/HIP, UNI W/ Pelvis 2-3 Views IMPRESSION: 1. Normal pelvis and left hip. There is no fracture or dislocation. Electronically Signed: Abdiel Chand DO at 16:12 [facility] ,
== END | disposition home or self-care (01) ==
LOC: MTRAD 15:14
PROVIDERS: PCP Family Medicine; Referring Provider Family Medicine; Visit Provider Family Medicine
DX: M25.552 Pain in left hip (principal)
CPT/HCPCS: 73502

== ENCOUNTER → 2023-01-23 | Outpatient (CLI) | payer OTHER, SELFPAY ==
[2023-01-23 09:27] LABS: Hematocrit 44.1 % (37-47); Hemoglobin 14.5 g/dL (12.0-15.0); Mean Corp Hgb Conc 32.9 g/dL (32-36); Mean Corpuscular Hgb 30.6 pg (27.0-32.0); Mean Platelet Vol. 10.4 fl (6.2-12.0); Platelet Count 199 K/mm3 (150-450); RBC Distribution Width CV 12.7 % (11.6-14.6); RBC Distribution Width SD 43.9 fl (35.1-43.9); Red Blood Count 4.74 M/mm3 (4.2-5.4)
[2023-01-23 09:53] LABS: Insulin 13.7 mU/L (2.6-37.6); Vitamin B12 391 pg/mL (211-911); Vitamin D,25 Hydroxy 82.3 ng/mL
[2023-01-23 09:58] LABS: AST(SGOT) 15 U/L (15-37); Alanine Aminotransfer ALT/SGPT 23 U/L (13-56); Albumin, Serum 3.7 g/dL (3.2-5.0); Alkaline Phosphatase 91 U/L (45-117); Anion Gap 3 (5-15); BUN 28 mg/dL (7-18); BUN/Creat Ratio 33.5 RATIO (10-20); Chloride 109 mmol/L (98-107); Cholesterol 206 mg/dL (200); Creatinine, Serum 0.84 mg/dL (0.55-1.02); EST Glomerular Filtration Rate 75 mL/min (>60); Est Glom Filt Rate - Afr Amer 91 mL/min (>60); Globulin 3.6 g/dL (2.2-4.2); Glucose 95 mg/dL (74-106); High Density Lipoprotein 69 mg/dL; Protein, Total 7.3 g/dL (6.4-8.2); Sodium Level 142 mmol/L (136-145); Triglycerides 98 mg/dL; Very Low Density Lipoprotein 20 mg/dL (5-40)
[2023-01-23 11:01] LABS: Hemoglobin A1c 5.4 % (3.8-5.6)
[2023-01-23 14:20] LABS: Magnesium 2.5 mg/dL (1.6-2.6)
[2023-01-23 16:27] LABS: Absolute Lymphocyte Count 1.68 X10^3/uL (0.83-4.51); Absolute Neutrophil Count 2.7 X10^3/uL (2.0-7.7); Basophil# 0.02 X10^3/uL; Basophil% 0.4 % (0-1); Eosinophil# 0.11 X10^3/uL; Eosinophils% 2.2 % (0-5); Lymphocyte # 1.68 X10^3/ul (0.83-4.51); Lymphocyte % 34.4 % (19-41); Monocyte# 0.37 X10^3/uL; Monocyte% 7.6 % (0-10); NRBC Flagged by Analyzer 0 % (0-5); Neutrophil % 55.2 % (47-70)
== END | disposition home or self-care (01) ==
LOC: LAB 09:02
PROVIDERS: PCP Family Medicine; Referring Provider Obstetrics & Gynecology; Visit Provider Obstetrics & Gynecology
DX: E66.9 Obesity, unspecified (principal); Z68.41 Body mass index [BMI] 40.0-44.9, adult; Z13.1 Encounter for screening for diabetes mellitus; Z13.29 Encounter for screening for other suspected endocrine disorder; Z13.0 Encounter for screening for diseases of the blood and blood-forming organs and certain disorders involving the immune mechanism
CPT/HCPCS: 36415; 80053; 80061; 82306; 82607; 83036; 83525; 83735; 84443; 85025; 85027

== ENCOUNTER → 2023-01-25 | Outpatient (CLI) | payer OTHER, SELFPAY | END | disposition home or self-care (01) | LOC: CT 12:08 | PROVIDERS: PCP Family Medicine; Visit Provider Specialist | DX: M17.11 Unilateral primary osteoarthritis, right knee (principal); Z96.651 Presence of right artificial knee joint; Z47.1 Aftercare following joint replacement surgery | CPT/HCPCS: 73700 ==

== ENCOUNTER 2023-01-29 09:30 | Outpatient (RCR) | payer OTHER, SELFPAY ==
--- NOTE | 2022-12-19 10:52 | HP.PTEVAL_ITS ---
Patient's Visit Information DANAY TRENT is a 52 year old F referred to Physical Therapy by Dr. Araceli Carey MD with a diagnosis of L hip pain. Date of Evaluation: 12/19/22 Physical Therapist: Jarred Pendleton DPT, OCS, CSCS - Visit Plan Frequency: 2x /Week Duration: 4-6 Weeks Plan: 2x/week for 3-6 weeks for. 1. US nonthermal to L GT bursa area. 2. manual rollout and stretch L hip and ITB, quad and HS. 3. Teach NWB hip strength for L hip, R knee OA so careful if WB. 4. TENS and ice as needed. - Subjective Has had 2 yrs of L hip pain. Insidious onset. She needs TKA on R knee in January. Pain is outside of l hip and shoots down leg at times. Went to doctor because it gave out when she tried to run after daughter one time. Some good days if not on it alot. Wakes her up at night most nights if lying on it wrong. 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 On celebrex and tylenol. Hurts affter work if on feet alot. Basic ADLs are getting done. Hobbies include spending time with kids and grandkids, can do it, just hurts, will go on walks with family but it hurts. No regular exercises - Pain L pain Pain Intensity (Out of 10): 5 Pain Intensity Range: 0, 7 Comment: hip - Objective Ambulates with minor R antagia(knee ) today. I gait, I trasnfers bed and chair, Steps reciprocal with one rail but painful R knee and L hip. Tightness B ITB and quadmoderately, HS minimally. Max tender over L GT bursa area and into ITB, none on R. HIP PROM WFL and symmetrical with 10 ext, 110 flexion, 70 ext rot, 30 IR and no pain. AROM WFL and symmetircal at hips. Knee AROM 0-110 R and 0- 120 L. Hip strength 3+ B hip flexion, abd, ext, rotations, 4 knee flex/ext, 5 a nkles all B. Pain hip tests L side vs R. ankel aROM WFL. sensation WNL to gross light touch B. reflexes 2/3 B patella and achilles. LB aROM WFL and without pain today. - hip scour, - MELA, - FADDIR - Balance/Special Test Scores Lower Extremity Functional Score: 64 - Goals Goal 1:: Sleep without waking at night 6 hours Goal Time Frame: 4-6 Weeks Goal 2:: Pt feel pain 80% better in L hip to 1/10 at worst Goal Time Frame: 4-6 Weeks Goal 3:: Work without increaseing pain in L hip Goal Time Frame: 4-6 Weeks Goal 4:: LEFS 70 Goal Time Frame: 4-6 Weeks - Rehabilitation Potential Physical Therapy Diagnosis: Likely L torchanteric bursitis, ITB causing pain and limiting funciton Rehabilitation Potential: Fair - Anticipated Interventions Patient/Client Instruction: Educate patient on: Condition, Plan of Care For the Purpose of:: To decrease pain, To increase ROM, To improve muscle performance and motor function, To increase tolerance to activity/condition/position, To improve ability of physical actions for home/community/work/leisure Therapeutic Exercise to Include: Strength training, Flexibilty training, Passive ROM, Active ROM For the Purpose of:: To decrease pain, To increase ROM, To improve nutrient delivery to tissue, To improve muscle performance and motor function Manual Therapy Techniques to Include: Mobilization, Passive ROM, Soft tissue mobilization For the Purpose of:: To decrease pain, To decrease swelling/inflammation, To increase ROM TENS: Yes Cryotherapy (ice pack, ice massage): Yes Ultrasound (thermal/non thermal): Yes - nonthermal L hip For the Purpose of:: To decrease pain, To decrease swelling/inflammation, To improve nutrient delivery to tissue Thank you for the opportunity to evaluate your patient. For Medicare and Medicare HMO plans, please review the plan of care and approve it. It will need to be FAXED BACK to us at [phone] for Medicare purposes. For Medicare only, by signing this I certify the plan of care. Please let me know if there are questions or concerns regarding this plan of care. Physician Signature: Date:
--- NOTE | 2023-01-08 12:44 | HP.PTEVAL2_ITS ---
Patient's Visit Information DANAY TRENT is a 52 year old F referred to Physical Therapy by Dr. Araceli Carey MD with a diagnosis of R knee OA. Date of Evaluation: 01/08/23 Physical Therapist: Jarred Pendleton, TYRELT, OCS, CSCS - Visit Plan Frequency: 2-3x /Week Duration: 2-4 Weeks Plan: 2-3x/week for 4 week in water for. Continued L hip strenght and stability. R knee APROM for flexion and strength to entire lower half. calorie burning conditioning ex. Progress HEP as needed (given SLR and knee flexion ROM today) - Subjective Subjective: TKA R knee on 02/06 due to bone on bone. Pain in R knee is anterior medial. Had trouble with R knee 3 years. Familial history of hip and knee pain. Has previous history of meniscal repair 10 yrs ago. No previous injury. Sleep is not interrupted due to R knee. Walking at work hurts R knee as she is on feet alot of day in [place]. Activities are effected in that climbing into pontoon boat is weak and painful. Basic ADLs are getting done but scared it will give out or be too painful. Dr. Nickerson thinks hip pain on L is from compensating due to R knee OA. Worse after work and with pivotting. - Pain r knee Intensity: 0 Pain Intensity Range: 0, 6 - Objective Objective: Walks without antalgia today but slow and distrusting. Steps reciprocal up with two rails, descends with R leading only and two rails. Trasnfers bed and chair are I. R knee 0-105 AROM with pain at end range. L knee 0-115. Flexibility LE is good except ITB slightly tight B. + r scour knee, - bounce home, - patellar grind, - ant drawer. strength R knee ext 3+ with pain, R knee flexion 4-. Sensation LE WNL to gross light touch. - Goals Goal 1:: 0-115 AROM R knee to prep for surgery Goal Time Frame: 2-4 Weeks Goal 2:: pain 0-2/10 at all times including after work Goal Time Frame: 2-4 Weeks Goal 3:: Pt feel ready for surgery strength and confidence pearson. Goal Time Frame: 2-4 Weeks Goal 4:: LEFS score 55 Goal Time Frame: 2-4 Weeks - Rehabilitation Potential Physical Therapy Diagnosis: R knee OA and needs strengthening and prep ex for surgery. Rehabilitation Potential: Fair - Anticipated Interventions Patient/Client Instruction: Educate patient on: Condition, Plan of Care For the Purpose of:: To decrease pain, To increase ROM, To improve nutrient delivery to tissue, To improve muscle performance and motor function, To incre ase tolerance to activity/condition/position, To foster healthy habits Therapeutic Exercise to Include: Strength training, Endurance training, Flexibilty training, In an aquatic setting, Passive ROM, Active ROM For the Purpose of:: To decrease pain, To increase ROM, To improve muscle performance and motor function Thank you for the opportunity to evaluate your patient. For Medicare and Medicare HMO plans, please review the plan of care and approve it. It will need to be FAXED BACK to us at [phone] for Medicare purposes. For Medicare only, by signing this I certify the plan of care. Please let me know if there are questions or concerns regarding this plan of care. Physician Signature: Date:
--- NOTE | 2023-01-08 12:46 | HP.PTDCSUM ---
It has been my pleasure to treat DANAYSE SIGIFREDO TRENT referred by Dr. Araceli Carey MD, with the diagnosis of L hip pain for a total of 6 visit(s). Discharge Date: Please see the following information for a summary of their discharge status. Subjective: Hip is improving but still hurts at times. Walking at times is painful as she is compensating for bad knee which will be evaluated today by therapist. Up to 2/10 with walking and comfortable at rest. L pain Pain Intensity (Out of 10): 4 % Improvement: 50 Objective/Function: progressing and appropriate to continue via secondary chart in pool. See goals. Goal 1:: Sleep without waking at night 6 hours Goal Progress: better Goal 2:: Pt feel pain 80% better in L hip to 1/10 at worst Goal Progress: Progressing Goal 3:: Work without increaseing pain in L hip Goal Progress: Progressing Goal 4:: LEFS 70 Plan: Pt to continue strengthening and stretching under new knee chart from Dr. Nickerson.(secondary chart) Will discharge this current chart but continue treatment under new chart in water due to solid improvement. If there are questions or concerns regarding this patient's physical therapy, please feel free to call me at [phone]. Thank you for the referral of this patient. Sincerely, Jarred Pendleton, DPT, OCS, CSCS Balance/Gait/Functional tests - Balance/Special Test Scores Lower Extremity Functional Score: 50
--- NOTE | 2023-02-08 09:40 | HP.PT.NRP(2) ---
DANAY TRENT was seen in my office for initial evaluation on 01/08/23. The following Plan of Care was established for this patient: Initial Frequency: 2-3x /Week Initial Duration: 2-4 Weeks Plan from Re-Evaluation: 2-3x/week for 4 week in water for. Continued L hip strength and stability. R knee APROM for flexion and strength to entire lower half. calorie burning conditioning ex. Progress HEP as needed Patient/Client Instruction: Educate patient on: Condition, Plan of Care For the Purpose of:: To decrease pain, To increase ROM, To improve nutrient delivery to tissue, To improve muscle performance and motor function, To increase tolerance to activity/condition/position, To foster healthy habits Therapeutic Exercise to Include: Strength training, Endurance training, Flexibilty training, In an aquatic setting, Passive ROM, Active ROM For the Purpose of:: To decrease pain, To increase ROM, To improve muscle performance and motor function This patient was last seen in our office . Pertinent comments regarding their Physical therapy will appear below: pt seen 8 visits of aquatic therapy for her knee and hip pain. She will have a TKA now and therefore, i will discontinue her current chart. we have her scheduled post surgically for the TKA. At this point I will be discontinuing this patient from physical therapy. I would be happy to see this patient again in the future if found appropriate by the physician. Thank you! Jarred Pendleton, DPT, OCS, CSCS
== END 2023-01-29 19:00 | disposition home or self-care (01) ==
LOC: PT 09:30
PROVIDERS: PCP Family Medicine; Referring Provider Family Medicine; Visit Provider Family Medicine
DX: M17.11 Unilateral primary osteoarthritis, right knee (principal); Z71.3 Dietary counseling and surveillance; M25.559 Pain in unspecified hip
CPT/HCPCS: 97035; 97110; 97113; 97161

== ENCOUNTER 2023-02-06 07:41 | Observation (INO) | payer OTHER, SELFPAY ==
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
--- NOTE | 2023-01-25 12:07 | EKG12_ITS ---
Test Reason : PRE OP Blood Pressure : / mmHG Vent. Rate : 060 BPM Atrial Rate : 060 BPM P-R Int : 184 ms QRS Dur : 096 ms QT Int : 414 ms P-R-T Axes : 059 007 041 degrees QTc Int : 414 ms Normal sinus rhythm Low voltage QRS Inferior infarct , age undetermined , cannot be excluded Poor R wave progression Abnormal ECG Confirmed by ENMA VINES, OMAYRA ([id number]), book editor ASTRID ESPINAL ([id number]) on 01/28/2023 11:24:20 AM Referred By: SHIRLEY Confirmed By:OMAYRA NORWOOD MD
--- NOTE | 2023-01-25 12:11 | CT_ITS ---
PROCEDURE: CT RIGHT KNEE WITHOUT CONTRAST REASON FOR EXAM: Female, 52 years old. Preoperative planning for the MakoPlasty Robotic knee surgery. Knee pain. TECHNIQUE: Transaxial CT of the hip, knee and ankle were obtained. Coronal and sagittal reconstruction images of the knee were provided. Individualized dose optimization techniques were used for this CT. COMPARISON: None. FINDINGS: Standard protocol for the preoperative planning for the MakoPlasty robotic knee surgery was performed. Mild arthrosis of the right hip. Moderate tricompartmental arthrosis right knee with chondrocalcinosis. Mild arthrosis of the tibiotalar and subtalar joints. Calcaneal spurs. CT/Extremity Lower without Contra IMPRESSION: Preoperative MakoPlasty Robotic knee surgical CT evaluation with findings as described above. Electronically Signed: Sergo Morris, at 12:56 EST ,
[2023-02-06] VITALS (17 sets, daily range): BP systolic 100–142; BP diastolic 55–105; PULSE 48–80; RESP 14–18; TEMP 35.9–36.7; O2SAT 92–100; BMI 40.1
[2023-02-06] MEDS: Magnesium 1 GM over 15 mins IV (07:10)
--- NOTE | 2023-02-06 07:16 | OP.PCM_ITS ---
Report of Operation Date of Procedure: 02/06/23 Pre-Operative Diagnosis: Right knee primary osteoarthritis Post-Operative Diagnosis: Right knee primary osteoarthritis Surgery/Procedure Performed:: Right minimally invasive robotic total knee replacement Description of Surgical Findings:: Stable knee with good patella tracking Surgeon: Alvaro Nickerson flight/transport nurse: Vic Pike Type of Anesthesia: Spinal Anesthesiologist: Jarred Clemens Special Medications: 2 g Ancef, 1 g TXA at incision, 1 g TXA closure, 10 mg Decadron, joint cocktail (5 mg Duramorph, 30 mL of 0.5% Ropivicaine, 1000 units of epinephrine, 30 mg of Toradol) Specimen's removed: Bony cuts Estimated Blood Loss (mL): 250 Fluids Replaced: 1200 ml Description of Procedure: Implants used: 1. Marlborough size 4 triathlon cruciate retaining distal femoral press-fit component 2. Hossein size 5 press-fit tritanium tibial baseplate 3. Marlborough X3 10 mm CS polyethylene 4. Marlborough X3 35 mm asymmetric patella Brief history operative indications: 52-year-old female with history of right knee osteoarthritis with radiographic findings with loss of joint space, osteophyte formation and subchondral sclerosis. Failed conservative measures as mentioned in the H&P. Discussion of total knee arthroplasty as well as risk and benefits were discussed the patient including but not limited to blood loss, DVTs, PEs, neurovascular damage, genera l risk of anesthesia including loss of life, and stiffness or instability were discussed with patient. Patient demonstrated understanding and was able to sign informed consent. Procedure: On the date of procedure patient's right lower extremity was marked in the preoperative area. The patient was then taken back to the operating room where the patient was placed on the table in the supine position. All bony prominences were identified a well-padded. Anesthesia assumed control of the C-spine and airway and remained controlled throughout the remainder of the procedure. A tourniquet was placed on the right upper thigh and the leg was prepped in a sterile fashion. The surgeon then scrubbed at this time .Upon reentering the room right lower extremity was draped in a standard orthopedic fashion. A timeout was then called and everyone agreed upon the side, the site, the procedure to be performed, patient's identity and antibiotics given. Esmarch bandage was used to exsanguinate the extremity and the tourniquet was placed up to 250 mmHg with the knee in flexion. A midline skin incision was made and sharp dissection was taken down through skin subcutaneous tissue and fat. The standard medial parapatellar incision was made and the patella was subluxed laterally. An Appropriate deep MCL release was done and the fat pad was resected. Our attention was then directed to the patella. The patella was everted and a flat resection was made. The knee was then flexed up in 2 femoral pins were placed inside the incision and 2 tibial pins were placed outside the incision in the medial tibia bicortically. Once this was completed the 2 checkpoints in the femur and tibia were placed. Knee was then flexed up and the bony landmarks were registered. Once this was completed knee was taken through range of motion and manually stressed allowing us to a plan for an appropriate tibial cut. The robotic arm was brought into the field sterilely and checkpoint and saw were registered. Based on the patient's deformity the tibial cut was made in 3 degrees of varus. At this time the tensioner was then placed in the joint and ligament tension was checked at 90 degrees and full extension. Based on the patient's ligamentous tension appropriate adjustments were made to the operative plan and ligament releases were done. Once we were happy with our operative plan with balanced flexion and extension gaps our attention was directed to the femur. The robot was brought into the field sterilely and registered. Posterior condylar cuts, anterior chamfer cuts and anterior cuts were appropriately made for a size 4 femur. When these were completed the saws were switched out in the distal femoral and posterior chamfer cuts were made. Protecting the soft tissue throughout this time. A size 5 tibial base plate was selected. the knee was flexed to 90 degrees and the soft tissues and posterior osteophytes were removed from the joint. 40 cc of the periarticular injection was injected into the posterior medial corner of the joint. The appropriate trials were then placed on the femur and tibia. A trial polyethylene was trialed to ensure proper balancing and stability of the knee. The appropriate tibial internal rotation was then marked with a bovie. Our attention was then directed to the patella. The lug holes were drilled and the patella trial was placed. Patellar tracking was checked and deemed appropriate. Once we were happy lug holes were drilled for the femur and trial components were removed. the tibia was subluxed and pinned into place and the keel was punched and drilled appropriately. Final components were verified and opened, and cement was mixed in a vacuum. Binary Fountain Simplex cement was used. The wound was copiously irrigated with normal saline. When the cement was ready the components were impacted into place starting with the tibia, femur and finally the patella. The trial poly component was placed and the knee was placed in full extension. All excess cement was removed in the process. Once the cement had cured the tracking, alignment and balance were verified and a size 10 mm CS polyethylene component was placed. Once the final components were placed a 3-minute dilute Betadine lavage was performed followed by an Irrisept lavage was performed and the wound was copiously irrigated with normal saline solution and the periarticular injection was given. The wound was closed in a layer pearson fashion using #1 vicryl interrupted sutures for the arthrotomy, 2-0 interrupted Vicryl suture for the subcuticular layer and shantelle for final skin closure. A sterile compressive dressing was then placed. The patient was then awakened from anesthesia, transferred to the [facility] and transferred to the PACU for recovery. Post op plan DVT ppx: ASA 81mg BID, thigh high compression stockings Follow up: in office in 2 weeks for wound check PT: to start POD #0 at hospital, outpatient PT should be arranged. Patient replaced on doxycycline 100 mg p.o. twice daily for 2 weeks after surgery due to BMI greater than 40 and increased risk for postoperative infections. My physician melter assistant was a vital part of this case. He was important in appropriate retraction during the case, and protection of soft tissues during bony cuts. His intimate knowledge of the case and my steps aided in safe and expedient completion of the procedure as well as appropriate position of the leg during the case. He was also vital in assisting with closure under my direct supervision. Due to the complexity of this case robotic arm was used to assist in the surgery to improve accuracy and clinical outcomes. Complications No intraoperative complications Admit VTE Documentation VTE Present on Admission: No VTE Mechan Device Prophylaxis: SCD's and Thigh High CRISS Hose VTE Pharm Prophylaxis ordered?: Yes
[2023-02-06] MEDS: Celecoxib 200 MG Capsule 400 MG PO (07:32)
[2023-02-06] MEDS: Gabapentin 600 MG Tablet PO (07:32)
[2023-02-06] MEDS: Acetaminophen 500 MG Tablet 1000 MG PO ×3 (07:33→20:58)
[2023-02-06] MEDS: Lactated Ringers 1,000 ML 999 ML IV ×2 (07:37→12:00)
[2023-02-06 08:01] LABS: Bedside Glucose 96 mg/dL (74-106)
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
[2023-02-06] MEDS: Lactated Ringers 1,000 ML 75 ML IV (10:00)
[2023-02-06] MEDS: Cefazolin 2 GM in 0.9% Normal Saline 100 ML IV (10:08)
[2023-02-06] MEDS: TXA 1000mg in NS100 100ml (IVPB at Incision) 660 MG IV (10:18)
[2023-02-06] MEDS: dexAMETHasone 10 MG/ML Vial IV (10:20)
[2023-02-06] MEDS: TXA 1000mg in NS100 100ml (IVPB at Closure) 660 MG IV (11:10)
--- NOTE | 2023-02-06 12:00 | RAD_ITS ---
STUDY: X-RAY - RIGHT KNEE REASON FOR EXAM: Female, 52 years old. Postoperative evaluation after total knee arthroplasty. TECHNIQUE: 3 view(s) of the knee. COMPARISON: May 18, 2022. FINDINGS: 3 component total knee arthroplasty in anatomic position. There are expected post-operative findings with no complications. No other significant abnormality is identified. RAD/Knee 1 or 2 Views IMPRESSION: Total knee arthroplasty in anatomic alignment without complications. Electronically Signed: Sergo Morris, at 13:21 EDT ,
[2023-02-06] MEDS: Lactated Ringers 1,000 ML 125 ML IV (12:55)
[2023-02-06 13:45] LABS: Bedside Glucose 142 mg/dL (74-106)
--- NOTE | 2023-02-06 16:51 | CON.PCM.HO_ITS ---
Assessment & Plan Assessment/Plan (1) Osteoarthritis of right knee: PLAN: Plan #Right knee osteoarthritis status post minimally invasive robotic total knee replacement -Status post surgery 02/06/[address] Nickerson -Patient is to be on aspirin 81 mg twice a day with thigh-high compression stockings and is to follow-up in the office in 2 weeks for wound check -We will have outpatient PT -Is on doxycycline 100 mg twice daily for 2 weeks after surgery due to the BMI greater than 40 and increased risk of infection postop #GERD -Continue PPI #Anxiety -Continue Zoloft #DVT ppx: Per primary Haydee Graff MD Time spent in the patient's overall evaluation,decision-making process, review of diagnostic data, adjustment of management, discussion with other providers, nursing nursing and ancillary staff involved in patient's care documentation, 31 minutes HPI Consult Data Date of Consult: 02/06/23 HPI Narrative Reason for Consultation: Medical management HPI Narrative: DANAY TRENT, is a 52 F with a history of obesity, GERD, history of kidney stones, anxiety who presented to [facility] 02/06/2023 for a right minimally invasive robotic total knee replacement due to right knee primary osteoarthritis. Hospitalist consulted for medical management. Seen in her room post operatively, had a nerve block on her leg and had slight buckling earlier but overall reports feeling fair. She has no other complaints. [facility] Medical History (Updated 02/06/23 @ 16:[address] Haydee Graff MD) Alcohol use Arthritis Blackout Encounter for screening colonoscopy Gastric reflux GERD (gastroesophageal reflux disease) History of bradycardia History of Clostridium difficile infection History of edema History of GI bleed History of hemorrhoids History of pneumonia hx of leg injury Knee pain Leg cramps Restless legs Shortness of breath on exertion Wears contact lenses Home Medications sertraline 100 mg tablet 100 - 200 mg PO DAILY 10/07/13 [History Last Taken Unknown] celecoxib 200 mg capsule 100 mg PO DAILY 10/10/16 [History Last Taken Unknown] acetaminophen 325 mg capsule (Tylenol) 325 mg PO ONCE PRN Pain 01/04/20 [History Last Taken Unknown] lansoprazole 30 mg capsule,delayed release 30 mg PO DAILY 11/27/21 [History Last Taken 02/06/23] magnesium 250 mg tablet 250 mg PO DAILY 11/27/21 [History Last Taken Unknown] cholecalciferol (vitamin D3) 125 mcg (5,000 unit) tablet (Vitamin D3) 500 mcg PO DAILY 11/30/21 [History Last Taken Unknown] cyclobenzaprine 5 mg tablet 5 mg PO TID PRN muscle spasm #30 tabs 02/23/22 [Rx Last Taken Unknown] acyclovir 400 mg tablet 400 mg PO TID PRN Cold Sores 01/23/23 [History Last Taken Unknown] Allergy/AdvReac Type Severity Reaction Status Date / Time amoxicillin [From Augmentin] Allergy Diarrhea Verified 02/06/23 07:14 clavulanic acid Allergy Diarrhea Verified 02/06/23 07:14 [From Augmentin] hydrocodone bitartrate AdvReac Other Verified 02/06/23 07:14 [From Vicodin] Family History Father Heart disease Mother Diabetes Asthma Cancer Daughter Heart disease Seizures Surgical History (Updated 01/23/23 @ 13:11 by Mignon Hand) Bilateral carpal tunnel syndrome H/O lateral meniscus repair of left knee H/O lateral meniscus repair of right knee History of arthroscopy of both knees History of bunionectomy History of esophagogastroduodenoscopy (EGD) History of hemorrhoidectomy History of liver biopsy History of lumpectomy of left breast History of partial knee replacement History of tubal ligation history of uterine ablation History of wisdom tooth extraction Acuña neuroma Social History Smoking Status: Never smoker alcohol intake: current alcohol intake frequency: holidays/special occasions only substance use type: does not use ROS ROS Narrative General: Denies fever/chills HENT: Denies headache, denies stuffy nose, denies sore throat EYES: Denies changes in vision Resp: Denies cough, denies shortness of breath Cardiac: Denies chest pain GI: Denies abdominal pain, denies changes in bowel, denies nausea/vomiting : Denies changes in urination Extremity: Denies swelling MSK: Some right leg buckling right after surgery due to nerve block Neuro: Denies any numbness/tingling Heme: Denies any bleeding or bruising Skin: Denies rashes Psychiatric: No complaints voiced Physical Exam Narrative General: Alert, oriented, no apparent distress HEENT: Atraumatic, normocephalic Eyes: Anicteric, normal conjunctiva, extraocular movements grossly intact Neck: Supple Respiratory: Clear to auscultation bilaterally, normal respiratory effort Cardiovascular: Regular rate and rhythm GI: Soft, nontender, nondistended Extremities: No edema Musculoskeletal: Moving all extremities, sitting on side of bed about to get up to chair Neuro: No overt focal neurological deficits Skin: No rashes appreciated Psych: Cooperative Lab / Micro Data Result Diagrams: 01/25/23 12:38 Labs: Laboratory Results - last 24 hr 02/06/23 07:19: POC Glucose 96 02/06/23 13:24: POC Glucose 142 H Radiology Impression Knee X-Ray 02/06/23 12:00 IMPRESSION: Total knee arthroplasty in anatomic alignment without complications. Electronically Signed: Sergo Morris, at 13:21 EDT , Charges/Coding Visit Charges Office Visits / Consults: [id number] OP Consult L3
[2023-02-06] MEDS: Aspirin 81 MG TAB.CHEW PO (17:17)
[2023-02-06] MEDS: Ensure Surgery 237 ML LIQUID PO (17:17)
[2023-02-06] MEDS: Cefazolin 1 GM/50 ML BAG IV (17:42)
[2023-02-06] MEDS: Doxycycline 100 MG CAPSULE PO (20:57)
[2023-02-06] MEDS: Senna/Docusate Sodium 1 Tablet 2 TABLET PO (20:57)
[2023-02-07 02:10] VITALS: BP 107/67; PULSE 54; RESP 14; TEMP 36.4; O2SAT 93
[2023-02-07] MEDS: Cefazolin 1 GM/50 ML BAG IV (02:13)
[2023-02-07] MEDS: Acetaminophen 500 MG Tablet 1000 MG PO ×3 (06:09→20:50)
[2023-02-07 07:08] LABS: Hematocrit 39.2 % (37-47); Hemoglobin 12.5 g/dL (12.0-15.0); Mean Corp Hgb Conc 31.9 g/dL (32-36); Mean Corpuscular Hgb 29.6 pg (27.0-32.0); Mean Corpuscular Volume 92.9 fL (81-99); Mean Platelet Vol. 10.4 fl (6.2-12.0); Platelet Count 179 K/mm3 (150-450); RBC Distribution Width CV 12.6 % (11.6-14.6); RBC Distribution Width SD 43.2 fl (35.1-43.9); Red Blood Count 4.22 M/mm3 (4.2-5.4)
[2023-02-07] MEDS: Aspirin 81 MG TAB.CHEW PO ×2 (07:32→16:19)
[2023-02-07 07:46] LABS: Anion Gap 4 (5-15); BUN 18 mg/dL (7-18); BUN/Creat Ratio 25.1 RATIO (10-20); Calcium,Total 8.6 mg/dL (8.5-10.1); Chloride 110 mmol/L (98-107); Creatinine, Serum 0.72 mg/dL (0.55-1.02); EST Glomerular Filtration Rate 90 mL/min (>60); Est Glom Filt Rate - Afr Amer 109 mL/min (>60); Estimated Creatinine Clearance 80.38 ml/min; Glucose 97 mg/dL (74-106); Potassium 4.1 mmol/L (3.5-5.1); Sodium Level 142 mmol/L (136-145)
[2023-02-07 08:09] VITALS: BP 111/68; PULSE 58; RESP 16; TEMP 36.8; O2SAT 100
[2023-02-07] MEDS: Ensure Surgery 237 ML LIQUID PO ×3 (08:25→16:19)
[2023-02-07] MEDS: cycloBENZAPRine HCl 5 MG TABLET PO (08:26)
[2023-02-07] MEDS: Senna/Docusate Sodium 1 Tablet 2 TABLET PO (09:35)
[2023-02-07] MEDS: Doxycycline 100 MG CAPSULE PO ×2 (09:35→20:50)
[2023-02-07] MEDS: Famotidine 20 MG Tablet PO (09:35)
[2023-02-07] MEDS: Pantoprazole Sodium 40 MG Tablet PO (09:35)
[2023-02-07] MEDS: Magnesium Chloride 64 MG Delay Rel.Tablet 128 MG PO (09:35)
[2023-02-07] MEDS: Sertraline 100 MG Tablet 200 MG PO (09:36)
--- NOTE | 2023-02-07 09:50 | CASEMGMT ---
CHRISTINA MCKENNA Assessment: Face to Face with pt for initial transition planning/care coordination assessment. CHRISTINA MCKENNA introduced self and role at [facility], pt voices understanding and consents to assessment. Pt is A/O x4 and answers all questions appropriately at this time. Pt sitting up in chair, just finished with therapy. Care providers, pharmacy, and demographics verified/updated. Admitting Dx: R total knee with Favian PCP:Arti Specialists:castro Nickerson; Boogie, PAINTING DEPARTMENT SUPERVISOR Preferred Pharmacy: [facility] Retail Insurance: [employer]/[facility] Prescription Benefit: yes LNOK: Dharmesh Moreno, ; Fred Moreno, son Living Arrangements: Pt lives with her and dtr in a split level home with no steps to enter but 5-6 steps with rails on both sides to get to the main level. Pt reports she was I in ADL's and denies concerns at home. Transportation: Pt drives self and denies concerns with transportation. Pt dtr will transport her until she can drive again. DME/HHC/SNF: Pt has a shower chair, grab bars in the bathroom, FWW and higher commodes. Pt has had [facility] in the past. Pt denies SNF stays. Pt states no concerns with going home at time of dc. Family will assist pt post op. Pt has outpt therapy set up for Saturday at [facility]. Pt states no further concerns/needs. CM to follow. Advised pt to ask CM if any further question/concerns/needs arise, voices understanding. Pt Goal: Home with outpt therapy set up Plan: Home with outpt therapy set up
--- NOTE | 2023-02-07 10:26 | PN.ORTHO_ITS ---
Subjective Subjective The patient was sitting in bedside chair upon examination. Patient denies any chest pain, shortness of breath, dizziness, lightheadedness, nausea or vomiting, or calf pain. Pain is controlled on medications. No adverse overnight events. Patient did have some difficulty this morning with physical therapy as her postoperative knee wanted to give out. Therapy would like to reassess her this afternoon for appropriate discharge planning. The pain has been well controlled. Objective Data Objective Data Vital Signs: Vital Signs Temp Pulse Resp BP Pulse Ox O2 Del Method O2 Flow Rate 98.2 F 58 L 16 111/68 100 Room Air 2 02/07/23 08:09 02/07/23 08:09 02/07/23 08:09 02/07/23 08:09 02/07/23 08:09 02/07/23 08:09 02/06/23 15:38 Oxygen Flow Rate (L/min) 2 Oxygen Delivery Method Room Air Weight: 111 kg Body Mass Index (BMI) 40.1 Intake & Output: Intake and Output for Last 24 Hours 02/05/23 02/06/23 02/07/23 23:59 23:59 23:59 Intake Total 3747.7 / 3987.7 490 / 490 Output Total 900 / 1450 850 / 850 Balance 2847.7 / 2537.7 -360 / -360 Lab / Micro Data Result Diagrams: 02/07/23 06:52 02/07/23 06:52 Labs: Laboratory Results - last 24 hr 02/06/23 13:24: POC Glucose 142 H 02/07/23 06:52: WBC 9.0, RBC 4.22, Hgb 12.5, Hct 39.2, MCV 92.9, MCH 29.6, MCHC 31.9 L, RDW Std Deviation 43.2, RDW Coeff of Veronica 12.6, Plt Count 179, MPV 10.4 02/07/23 06:52: Sodium 142, Potassium 4.1, Chloride 110 H, Carbon Dioxide 28.0, Anion Gap 4 L, BUN 18, Creatinine 0.72, Estim Creat Clear Calc 80.38, Est GFR (MDRD) Af Amer 109, Est GFR (MDRD) Non-Af 90, BUN/Creatinine Ratio 25.1 H, Glucose 97, Calcium 8.6 Micro: Microbiology 01/25/23 12:38 Swab (Method) Nasal Screen MRSA/MSSA - Final Radiography Diagnostic Testing: Radiology Impression Knee X-Ray 02/06/23 12:00 IMPRESSION: Total knee arthroplasty in anatomic alignment without complications. Electronically Signed: Sergo Morris, at 13:21 EDT , Physical Exam Narrative Vital signs stable and afebrile. SCDs and CRISS hose are in place bilaterally Patient is able to plantarflex and dorsiflex actively. Sensation is intact to light touch to saphenous, sural, superficial and deep peroneal, and tibial distribution. Both dressings are clean dry and intact. Negative Homans bilaterally, negative signs and symptoms of DVT. Const alert, oriented x3 and no apparent distress Assessment & Plan Assessment/Plan (1) Status post total right knee replacement: PLAN: 1. S/P right total knee arthroplasty POD #1 2. Continue Pain Medications: Tylenol, Celebrex and oxycodone 3. DVT Prophylaxis: Take 81 mg aspirin twice daily for 4 weeks postoperatively for DVT prophylaxis. Patient denies past history of DVT or pulmonary embolism 4. PT/OT: Weightbearing as tolerated with walker. Appreciate further recommendations this afternoon with regards to discharge planning. Patient did have some difficulty this morning with the postoperative knee wanting to buckle and give out. 5. H & H: 12.5/39.2, asymptomatic. Postoperative anemia secondary to acute blood loss from surgery without any intra operative complications. 6. Continue antibiotics postoperatively: Patient is currently on doxycycline for 2 weeks postoperatively due to elevated BMI greater than 40.0. Instructed patient of side effects with sensitivity to sunlight and to take appropriate precautions. Also recommended probiotic while taking this medication. 7. Encouraged Incentive Spirometry 8. Continue postoperative medical management per medicine: Case was discussed with medicine and they are signing off of patient 9. Disposition: Plan will be for possible discharge home this afternoon if patient improves with physical therapy. We would like reassessment of patient this afternoon with physical therapy for appropriate discharge planning. As long as she is stable and pain is well controlled possible discharge this after noon. However patient may require additional night for some additional therapy and reevaluate tomorrow. Prescriptions will be E scribed to [facility]. She will follow-up per postop instructions. Patient will contact her office upon discharge with any concerns or questions. I have reviewed the [place] Automated Rx Reporting System (OARRS) report for this patient for refill pattern and other prescriber involvement as part of the appropriate surveillance for the provision of acute and chronic controlled medications. The report was requested and reviewed on the date of this entry and was considered in the prescribing process. This dictation was created using voice recognition software. Phonetic and/or grammatical errors may exist.
--- NOTE | 2023-02-07 10:30 | DCINST_ITS ---
Discharge Instructions Diet Discharge Diet: No restrictions Activity Discharge Activity: May Not Drive (No driving for 6 weeks postoperatively) May shower in (days): 1 (Please turn dressing away from water. Okay to get wet as long as dressing is intact to skin.) Ice area for (Minutes): 20 (Every 1-2 hours while awake[address] Please place barrier between the skin and ice pack.) Weight Bearing Status: Weight bearing as tolerated Keep extremity elevated above heart level: Operative Extremity Dressing / Incision Call your doctor if your incision/area has: Continuous Slow Oozing, Sudden Increased Bleeding, Increased Pain/ Swelling, Increased Redness and Foul Smelling Discharge Call your doctor if you observe: Fever of 101 or Higher, Coldness, Increased Pain, Numbness or Tingling, Change in Color, Shortness of breath, Chest pain, Calf discomfort and Uncontrolled pain Remove Dressing in: 3 days (Okay to remove dressing on February 11, 2023) Additional Dressing/Incision Instructions:: Follow [facility] Post-op Instructions. Once postoperative dressing has been removed only use gentle soap and water over the incision. Do not use any ointments, Neosporin, salves, alcohol pads over the incision for 6 weeks postoperatively. Do not submerge underwater for 6 weeks postoperatively. Continue with CRISS hose/elastic stockings for 2 weeks postoperatively. May remove at nighttime but needs to be placed back on the leg during the day. Do NOT use alcohol with narcotic pain medication. Do NOT make important decisions while taking narcotic medication. If you have problems with taking your medication (rash, itching, nausea, etc.) call the offi ce at once. Follow Up Care Test Results: Test results from this visit will be discussed in further detail at your follow- up appointment, if applicable. Discharge Plan Admission Admit Date/Time: 02/06/23 07:41 Attending Provider: Alvaro Nickerson Primary Care Provider: Albert Chi Consulting Providers: Haydee Graff ; Catherine Vincent Discharge Orders/Prescriptions Prescriptions: New acetaminophen 500 mg Tablet 1,000 mg PO Q8 Qty: 0 0RF Rx Instructions: Do not take more than 3000 mg Tylenol in a 24-hour period. aspirin 81 mg Tablet,Chewable 81 mg PO BIDCM 30 Days Qty: 60 0RF Rx Instructions: Take 81 mg aspirin twice daily for 4 weeks postoperatively for DVT prophylaxis. doxycycline monohydrate 100 mg Capsule 100 mg PO BID 14 Days Qty: 28 0RF oxycodone 5 mg Tablet 5 - 10 mg PO Q4H PRN PRN (Reason: Pain Score 4-10) 5 Days Qty: 60 0RF sennosides-docusate sodium [Stool Softener-Stimulant Laxat] 8.6-50 mg Tablet 2 tab PO BID 3 Days Qty: 12 0RF Rx Instructions: Take until first bowel movement, then as needed Continued lansoprazole 30 mg capsule,delayed release(DR/EC) 30 mg PO DAILY magnesium 250 mg tablet 250 mg PO DAILY sertraline 100 MG tablet 100 - 200 mg PO DAILY Label Comments: depression/anxiety celecoxib 200 MG capsule 100 mg PO DAILY Label Comments: pain/inflammation cholecalciferol (vitamin D3) [Vitamin D3] 125 mcg (5,000 unit) Tablet 500 mcg PO DAILY acyclovir 400 mg tablet 400 mg PO TID PRN (Reason: Cold Sores) Label Comments: TAKE 1 TABLET BY MOUTH 3OTIMES A DAY NEEDED FOREOUTBREAKSP cyclobenzaprine 5 mg tablet 5 mg PO TID PRN (Reason: muscle spasm) Qty: 30 3RF Discontinued acetaminophen [Tylenol] 325 mg capsule 325 mg PO ONCE PRN (Reason: Pain) Referrals / Follow Up: Physical,Therapy [Other] - 02/11/23 Albert Chi MD [Primary Care Provider] - Vic Pike PA-C [Med Staff - [facility] Practice Prof] - 02/21/23 2:45 pm Disposition Disposition (needs filled in before D/C Order can be placed): Home, Self Care
[2023-02-07] MEDS: oxyCODONE 5 MG Tablet PO ×3 (10:45→21:27)
[2023-02-07] MEDS: Celecoxib 200 MG Capsule PO (13:02)
--- NOTE | 2023-02-07 13:50 | NURSING ---
this nurse heard therapy daniel for help in hallway. therapy wheeling patient in wheelchair to room. pt with eyes open minimally responsive. resp. even/unlabored. noted to be pale in color. therapist reports patient stating not feeling well, ringing in ears, then less responsive. pt assisted x4 into bed (Ellen JohnsonRN, Benjamin PalmaRN, Chelle Esquivel RN), pt placed in reverse trand. bp 108/63 hr 59. 88%RA. 4lnc placed and Dr. Vincent sent coretext requesting her to come see patient and call this nurse. pt more responsive. OT checked to be 150. 1400 Dr. Vincent bedside 118/72. LR bolus infusing. 1407 lab called requesting CBC stat be drawn. pt drowsy but responsive. family bedside.
[2023-02-07] MEDS: Lactated Ringers 500 ML 999 ML IV (14:05)
[2023-02-07 14:15] LABS: Bedside Glucose 150 mg/dL (74-106)
[2023-02-07 14:24] LABS: Absolute Lymphocyte Count 2.04 X10^3/uL (0.83-4.51); Absolute Neutrophil Count 4.7 X10^3/uL (2.0-7.7); Basophil# 0.04 X10^3/uL; Basophil% 0.5 % (0-1); Eosinophil# 0.08 X10^3/uL; Eosinophils% 1.1 % (0-5); Hematocrit 37.1 % (37-47); Lymphocyte # 2.04 X10^3/ul (0.83-4.51); Lymphocyte % 27.3 % (19-41); Mean Corp Hgb Conc 32.3 g/dL (32-36); Mean Corpuscular Hgb 30.6 pg (27.0-32.0); Mean Corpuscular Volume 94.6 fL (81-99); Mean Platelet Vol. 10.8 fl (6.2-12.0); Monocyte# 0.63 X10^3/uL; Monocyte% 8.4 % (0-10); NRBC Flagged by Analyzer 0 % (0-5); Neutrophil # 4.67 X10^3/uL (2.7-7.7); Neutrophil % 62.4 % (47-70); Platelet Count 169 K/mm3 (150-450); RBC Distribution Width CV 12.8 % (11.6-14.6); Red Blood Count 3.92 M/mm3 (4.2-5.4); White Blood Count 7.5 K/mm3 (4.4-11.0)
--- NOTE | 2023-02-07 14:34 | PCM.PN.HOSP ---
Reason for Visit Reason for Visit: Right knee osteoarthritis Subjective Subjective Was admitted for an elective total knee arthroplasty on 02/06/2023. She did well in the perioperative. And plans were for discharge today however the patient was at rehab this afternoon and had a syncopal episode. I was called to the bedside to evaluate the patient. She was somewhat sleepy however awakened with tactile stimulus and was able to recall the event. She stated she was sitting down at therapy and become lightheaded and then had tunnel vision and blacked out. The syncopal episode lasted for a very brief period of time. Vital signs were stable and blood sugar was 150. Given this I did obtain a stat CBC and we will hold off on her discharge at this time. Objective Data Objective Data Vital Signs: Vital Signs Temp Pulse Resp BP Pulse Ox O2 Del Method O2 Flow Rate 98.2 F 58 L 16 111/68 100 Room Air 2 02/07/23 08:09 02/07/23 08:09 02/07/23 08:09 02/07/23 08:09 02/07/23 08:09 02/07/23 08:09 02/06/23 15:38 Oxygen Flow Rate (L/min) 2 Oxygen Delivery Method Room Air Weight: 111 kg Body Mass Index (BMI) 40.1 Intake & Output: Intake and Output for Last 24 Hours 02/05/23 02/06/23 02/07/23 23:59 23:59 23:59 Intake Total 3747.7 / 3987.7 490 / 490 Output Total 900 / 1450 850 / 850 Balance 2847.7 / 2537.7 -360 / -360 Lab / Micro Data Result Diagrams: 02/07/23 14:18 02/07/23 06:52 Labs: Laboratory Results - last 24 hr 02/07/23 06:52: WBC 9.0, RBC 4.22, Hgb 12.5, Hct 39.2, MCV 92.9, MCH 29.6, MCHC 31.9 L, RDW Std Deviation 43.2, RDW Coeff of Veronica 12.6, Plt Count 179, MPV 10.4 02/07/23 06:52: Sodium 142, Potassium 4.1, Chloride 110 H, Carbon Dioxide 28.0, Anion Gap 4 L, BUN 18, Creatinine 0.72, Estim Creat Clear Calc 80.38, Est GFR (MDRD) Af Amer 109, Est GFR (MDRD) Non-Af 90, BUN/Creatinine Ratio 25.1 H, Glucose 97, Calcium 8.6 02/07/23 13:55: POC Glucose 150 H 02/07/23 14:18: WBC 7.5, RBC 3.92 L, Hgb 12.0, Hct 37.1, MCV 94.6, MCH 30.6, MCHC 32.3, RDW Std Deviation 44.0 H, RDW Coeff of Veronica 12.8, Plt Count 169, MPV 10.8, Immature Gran % (Auto) 0.300, Neut % (Auto) 62.4, Lymph % (Auto) 27.3, [place] % (Auto) 8.4, Eos % (Auto) 1.1, Baso % (Auto) 0.5, Absolute Neuts (auto) 4.7, Absolute Lymphs (auto) 2.04, Nucleated RBC % 0 Micro: Microbiology 01/25/23 12:38 Swab (Method) Nasal Screen MRSA/MSSA - Final Physical Exam Const oriented x3, no apparent distress and well nourished Constitutional Narrative: Sleepy but arousable middle-aged white female lying in bed, nursing surrounding bedside, patient awakens and is able to answer all questions, appears comfortable at this time and nontoxic HEENT head/scalp atraumatic and moist oral mucous membranes HEENT Narrative: Mallampati 3, no thrush Head and Scalp: normocephalic Resp normal respiratory effort, no retractions, no use of accessory muscles and clear to auscultation bilaterally Auscultation: Negative for rales, rhonchi or wheezes Cardio regular rate, regular rhythm, S1 normal heart sound, S2 normal heart sound, no murmurs, no rub, no gallops and no clicks GI normal to inspection, nondistended, normoactive bowel sounds, soft to palpation and non-tender Extremity Extremity Narrative: Mild edema right lower extremity which is the postoperative limb, CRISS hose in place Neuro oriented x3, CN's II-XII intact bilaterally, moves all extremities and no focal motor deficits Neuro Narrative: Patient appears quite sleepy but is able to awaken and give me the history of what happened prior to the event Speech: speech normal Assessment & Plan Assessment/Plan (1) Syncope: (2) Status post total right knee replacement: (3) Osteoarthritis of right knee: PLAN: Plan Right knee osteoarthritis -Postop day 1 from total knee arthroplasty -Pain management per primary service -PT/OT -Bowel regimen recommended -Doxycycline per primary service Syncope -Sounds like it may be a vasovagal event as it did happen while she was at therapy -We will repeat CBC now -Currently hemodynamically stable -Patient is alert and oriented x3 but sleepy -Continue to monitor and hold discharge with reevaluation tomorrow GERD -Continue PPI Chronic bradycardia -Heart rates are stable when compared to baseline History of cold sores -Continue as needed acyclovir Anxiety/depression -Continue Zoloft DVT prophylaxis -Per primary service with aspirin 81 mg p.o. twice daily Charges/Coding Visit Charges Inpatient E&M: 21117 Subs Hosp L2
[2023-02-07 14:37] VITALS: BP 100/54; PULSE 68; RESP 16; TEMP 36.7; O2SAT 100
[2023-02-07 20:02] VITALS: O2SAT 100
[2023-02-07 20:48] VITALS: BP 98/53; PULSE 61; RESP 14; TEMP 36.6; O2SAT 96
[2023-02-08 05:10] VITALS: BP 102/63; PULSE 71; RESP 17; TEMP 36.9; O2SAT 98
[2023-02-08] MEDS: Acetaminophen 500 MG Tablet 1000 MG PO ×2 (05:16→14:10)
[2023-02-08] MEDS: oxyCODONE 5 MG Tablet PO ×3 (05:16→14:32)
[2023-02-08 09:06] VITALS: O2SAT 93
[2023-02-08] MEDS: Ensure Surgery 237 ML LIQUID PO ×2 (09:12→14:10)
[2023-02-08] MEDS: Aspirin 81 MG TAB.CHEW PO (09:13)
[2023-02-08] MEDS: Magnesium Chloride 64 MG Delay Rel.Tablet 128 MG PO (09:14)
[2023-02-08] MEDS: Celecoxib 200 MG Capsule PO (09:14)
[2023-02-08] MEDS: Famotidine 20 MG Tablet PO (09:14)
[2023-02-08] MEDS: Doxycycline 100 MG CAPSULE PO (09:14)
[2023-02-08] MEDS: Pantoprazole Sodium 40 MG Tablet PO (09:15)
[2023-02-08] MEDS: Senna/Docusate Sodium 1 Tablet 2 TABLET PO (09:16)
[2023-02-08] MEDS: Sertraline 100 MG Tablet 200 MG PO (09:17)
[2023-02-08 09:19] VITALS: BP 104/59; PULSE 67; RESP 16; TEMP 36.7; O2SAT 93
--- NOTE | 2023-02-08 11:11 | PCM.PN.ORT ---
Subjective Subjective The patient was sitting in bedside chair upon examination. Patient denies any chest pain, shortness of breath, dizziness, lightheadedness, nausea or vomiting, or calf pain. Pain is controlled on medications. No adverse overnight events. Patient states she is having more pain today but is doing much better overall than yesterday. She did have a syncope episode while in therapy yesterday. She did receive bolus of fluid. Medicine has cleared patient to go home today. Objective Data Objective Data Vital Signs: Vital Signs Temp Pulse Resp BP Pulse Ox O2 Del Method O2 Flow Rate 98.1 F 67 16 104/59 L 93 Room Air 4 02/08/23 09:19 02/08/23 09:19 02/08/23 09:19 02/08/23 09:19 02/08/23 09:19 02/08/23 09:19 02/07/23 20:02 Oxygen Flow Rate (L/min) 4 Oxygen Delivery Method Room Air Weight: 111 kg Body Mass Index (BMI) 40.1 Intake & Output: Intake and Output for Last 24 Hours 02/06/23 02/07/23 02/08/23 23:59 23:59 23:59 Intake Total 3747.7 / 3987.7 990 / 1290 400 / 400 Output Total 900 / 1450 850 / 850 Balance 2847.7 / 2537.7 140 / 440 400 / 400 Lab / Micro Data Result Diagrams: 02/07/23 14:18 02/07/23 06:52 Labs: Laboratory Results - last 24 hr 02/07/23 13:55: POC Glucose 150 H 02/07/23 14:18: WBC 7.5, RBC 3.92 L, Hgb 12.0, Hct 37.1, MCV 94.6, MCH 30.6, MCHC 32.3, RDW Std Deviation 44.0 H, RDW Coeff of Veronica 12.8, Plt Count 169, MPV 10.8, Immature Gran % (Auto) 0.300, Neut % (Auto) 62.4, Lymph % (Auto) 27.3, [place] % (Auto) 8.4, Eos % (Auto) 1.1, Baso % (Auto) 0.5, Absolute Neuts (auto) 4.7, Absolute Lymphs (auto) 2.04, Nucleated RBC % 0 Micro: Microbiology 01/25/23 12:38 Swab (Method) Nasal Screen MRSA/MSSA - Final Physical Exam Narrative Vital signs stable and afebrile. SCDs and CRISS hose are in place bilaterally Patient is able to plantarflex and dorsiflex actively. Sensation is intact to light touch to saphenous, sural, superficial and deep peroneal, and tibial distribution. No drainage appreciated with dressing. Both dressings are clean dry and intact. Negative Homans bilaterally, negative signs and symptoms of DVT. Const alert, oriented x3 and no apparent distress Assessment & Plan Assessment/Plan (1) Status post total right knee replacement: PLAN: 1. S/P right total knee arthroplasty POD #2 2. Continue Pain Medications: Tylenol, Celebrex and oxycodone 3. DVT Prophylaxis: Take 81 mg aspirin twice daily for 4 weeks postoperatively for DVT prophylaxis. Patient denies past history of DVT or pulmonary embolism 4. PT/OT: Weightbearing as tolerated with walker. Appreciate further recommendations this afternoon with regards to discharge planning. Patient did have some difficulty this morning with the postoperative knee wanting to buckle and give out. 5. H & H: Lab work has been ordered. They did come up while she was in therapy and will be coming back for lab draw for CBC, patient is currently asymptomatic. Postoperative anemia secondary to acute blood loss from surgery without any intra operative complications. 6. Continue antibiotics postoperatively: Patient is currently on doxycycline for 2 weeks postoperatively due to elevated BMI greater than 40.0. Instructed patient of side effects with sensitivity to sunlight and to take appropriate precautions. Also recommended probiotic while taking this medication. 7. Encouraged Incentive Spirometry 8. Continue postoperative medical management per medicine: 9. Disposition: Patient is doing better today and physical therapy states patient did well and appropriate for discharge home. Case was discussed with medicine and they are appropriate for discharge home. Patient's prescriptions were E scribed to [facility] yesterday. She will follow-up per postop instructions. Patient will contact her office upon discharge with any concerns or questions. Patient is requesting that we send in orders for x-rays at the hospital for her 2-week postoperative visit. I have reviewed the [place] Automated Rx Reporting System (OARRS) report for this patient for refill pattern and other prescriber involvement as part of the appropriate surveillance for the provision of acute and chronic controlled medications. The report was requested and reviewed on the date of this entry and was considered in the prescribing process. This dictation was created using voice recognition software. Phonetic and/or grammatical errors may exist.
--- NOTE | 2023-02-08 11:19 | PCM.PN.HOSP ---
Reason for Visit Reason for Visit: Right knee arthritis Subjective Subjective No issues overnight. Patient has had no other feelings of lightheadedness or presyncopal events. States she slept well overnight but is anxious to go home. Objective Data Objective Data Vital Signs: Vital Signs Temp Pulse Resp BP Pulse Ox O2 Del Method O2 Flow Rate 98.1 F 67 16 104/59 L 93 Room Air 4 02/08/23 09:19 02/08/23 09:19 02/08/23 09:19 02/08/23 09:19 02/08/23 09:19 02/08/23 09:19 02/07/23 20:02 Oxygen Flow Rate (L/min) 4 Oxygen Delivery Method Room Air Weight: 111 kg Body Mass Index (BMI) 40.1 Intake & Output: Intake and Output for Last 24 Hours 02/06/23 02/07/23 02/08/23 23:59 23:59 23:59 Intake Total 3747.7 / 3987.7 990 / 1290 400 / 400 Output Total 900 / 1450 850 / 850 Balance 2847.7 / 2537.7 140 / 440 400 / 400 Lab / Micro Data Result Diagrams: 02/07/23 14:18 02/07/23 06:52 Labs: Laboratory Results - last 24 hr 02/07/23 13:55: POC Glucose 150 H 02/07/23 14:18: WBC 7.5, RBC 3.92 L, Hgb 12.0, Hct 37.1, MCV 94.6, MCH 30.6, MCHC 32.3, RDW Std Deviation 44.0 H, RDW Coeff of Veronica 12.8, Plt Count 169, MPV 10.8, Immature Gran % (Auto) 0.300, Neut % (Auto) 62.4, Lymph % (Auto) 27.3, [place] % (Auto) 8.4, Eos % (Auto) 1.1, Baso % (Auto) 0.5, Absolute Neuts (auto) 4.7, Absolute Lymphs (auto) 2.04, Nucleated RBC % 0 Micro: Microbiology 01/25/23 12:38 Swab (Method) Nasal Screen MRSA/MSSA - Final Physical Exam Const alert, oriented x3, no apparent distress and well nourished Constitutional Narrative: Patient was sleeping upon my arrival but awakened easily and was alert and oriented x3, appears nontoxic and comfortable HEENT head/scalp atraumatic and moist oral mucous membranes HEENT Narrative: Mallampati 3, no thrush Head and Scalp: normocephalic Resp normal respiratory effort, no retractions, no use of accessory muscles and clear to auscultation bilaterally Auscultation: Negative for rales, rhonchi or wheezes Cardio regular rate, regular rhythm, S1 normal heart sound, S2 normal heart sound, no murmurs, no rub, no gallops and no clicks GI normal to inspection, nondistended, normoactive bowel sounds, soft to palpation and non-tender Extremity Extremity Narrative: Mild edema right lower extremity which is the postoperative limb, CRISS hose in place, no drainage from the surgical incision site Neuro oriented x3, moves all extremities and no focal motor deficits Speech: speech normal Psych affect normal Psych Narrative: Pleasant and appropriately interactive Assessment & Plan Assessment/Plan (1) Syncope: (2) Status post total right knee replacement: (3) Osteoarthritis of right knee: PLAN: Plan Right knee osteoarthritis -Postop day 2 from total knee arthroplasty -Pain management per primary service -PT/OT -Bowel regimen recommended -Doxycycline per primary service Syncope -Work-up was unremarkable -Currently hemodynamically stable -Mental status is at baseline -Suspect vasovagal event GERD -Continue PPI Chronic bradycardia -Heart rates are stable when compared to baseline History of cold sores -Continue as needed acyclovir Anxiety/depression -Continue Zoloft DVT prophylaxis -Per primary service with aspirin 81 mg p.o. twice daily Disposition: Okay to discharge home from a medical standpoint as long as she has no further events with therapy services today Charges/Coding Visit Charges Inpatient E&M: 57049 Subs Hosp L2
[2023-02-08 12:02] LABS: Hemoglobin 12.2 g/dL (12.0-15.0); Mean Corp Hgb Conc 32.1 g/dL (32-36); Mean Corpuscular Hgb 30.4 pg (27.0-32.0); Mean Corpuscular Volume 94.8 fL (81-99); Mean Platelet Vol. 10.8 fl (6.2-12.0); Platelet Count 170 K/mm3 (150-450); RBC Distribution Width SD 45.3 fl (35.1-43.9); Red Blood Count 4.01 M/mm3 (4.2-5.4); White Blood Count 6.9 K/mm3 (4.4-11.0)
[2023-02-08 14:15] VITALS: BP 116/71; PULSE 75; RESP 18; TEMP 36.9; O2SAT 98
== END 2023-02-08 15:00 | disposition home or self-care (01) ==
LOC: SDC 14:01 → MS3 14:01
PROVIDERS: Internal Medicine; Physician Assistant Surgical; Admitting Provider Specialist; PCP Family Medicine; Referring Provider Specialist; Visit Provider Specialist
PROC: 0SRC0JZ Replacement of Right Knee Joint with Synthetic Substitute, Open Approach (ICD-10-PCS; CPT 27447; principal; 2023-02-06 09:00)
DX: M17.11 Unilateral primary osteoarthritis, right knee (principal); F41.9 Anxiety disorder, unspecified; G25.81 Restless legs syndrome; R55 Syncope and collapse; Z79.899 Other long term (current) drug therapy; H46.9 Unspecified optic neuritis; K21.9 Gastro-esophageal reflux disease without esophagitis; R06.02 Shortness of breath; R00.1 Bradycardia, unspecified; F32.A Depression, unspecified; B00.1 Herpesviral vesicular dermatitis
CPT/HCPCS: 27447; 01402; 36415; 73560; 80048; 82962; 85025; 85027; 87081; 88305; 88311; 93005; 94668; 96361; 96365; 96366; 97110; 97116; 97162; 97166; 97530; 97535; 99221; 99252; C1776; J7120; G0378; G0463; J2405; J3475

== ENCOUNTER → 2023-02-20 | Outpatient (CLI) | payer OTHER, SELFPAY ==
--- NOTE | 2023-02-20 08:29 | RAD_ITS ---
EXAM: XR LEFT KNEE COMPLETE, 2 VIEWS CLINICAL INDICATION: PAIN TECHNIQUE: Frontal and tunnel views of the left knee. This report was created using [employer] report generation technology. COMPARISON: 02/10/2021. FINDINGS: BONES/JOINTS: Status post medial compartment hemiarthroplasty with components in good alignment unchanged since previous exam. Mild marginal osteophytes lateral compartment. No acute fracture. No sclerotic or destructive changes observed. SOFT TISSUES: Unremarkable. No soft tissue swelling or gas. No radiopaque foreign body. RAD/Knee 1 or 2 Views IMPRESSION: 1. Status post medial compartment hemiarthroplasty with components in good alignment unchanged since previous exam. 2. Mild arthrosis lateral joint compartment. Electronically Signed: Solis Murphy MD at 7:10 EDT ,
--- NOTE | 2023-02-20 08:29 | RAD_ITS ---
EXAM: XR RIGHT KNEE, 1 OR 2 VIEWS CLINICAL INDICATION: PAIN TECHNIQUE: Frontal and/or lateral views of the right knee. This report was created using [employer] report generation technology. COMPARISON: None. FINDINGS: BONES/JOINTS: Status post total knee arthroplasty with components in good alignment. No acute fracture. No sclerotic or destructive changes observed. SOFT TISSUES: Skin shantelle anteriorly. No soft tissue swelling or gas. No radiopaque foreign body. RAD/Knee 4 or More Views IMPRESSION: Status post total knee arthroplasty with components in good alignment. No specific acute abnormality. Electronically Signed: Solis Murphy MD at 5:41 EDT ,
== END | disposition home or self-care (01) ==
PROVIDERS: PCP Family Medicine; Referring Provider Physician Assistant Surgical; Visit Provider Physician Assistant Surgical
DX: M17.11 Unilateral primary osteoarthritis, right knee (principal); Z47.1 Aftercare following joint replacement surgery; Z96.651 Presence of right artificial knee joint
CPT/HCPCS: 73560; 73564

== ENCOUNTER 2023-03-22 08:30 | Outpatient (RCR) | payer OTHER, SELFPAY ==
--- NOTE | 2023-02-11 10:48 | HP.PTEVAL ---
Patient's Visit Information DANAY TRENT is a 52 year old F referred to Physical Therapy by Adalberto Pike PA-C with a diagnosis of S/P R TKA 02/06/23. Date of Evaluation: 02/11/23 Physical Therapist: Jarred Pendleton, DPT, OCS, CSCS - Visit Plan Frequency: 3x /Week Duration: 4-6 Weeks Plan: 3x/week for 4-6 weeks to start for. patellar mobs R. knee ROM R. strengthening and gait training and and steps. porgress to gym or home general strength for work. - Subjective 02/06/23 TKA R. In hospital 2 days Home since Saturday with help. Pain is stiff and 8/10 and worse at night. Takes 2 oxy at night. Currently 6 . HEP: HS with leash, QS, AP all day , SLR with stability. Spends day in chair, doing dishes, using ice machine in bed and during day. Dressing and bathroom I, Shower with out assist,. Has dtr with down's syndrome so house is ready with grab bars. 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 Hobbies: camping and boating and walking. Wh walker all the time right now. No problems, no falls. Has steps with rail but staying on main floor. Has 5 steps to bathoorm and 6 to exit with at least one rail. - Pain R knee Pain Intensity (Out of 10): 6 Pain Intensity Range: 6, 8 - Objective Walks with wh walker to therapy mod I with stiff R LE. Transfer mat and chair I, needs UE to lift leg to table. Steps reciprocally using L leg only and walker/rail ineach hand. Can stand without support, no steps without walker today due to pain. Girth patella R 23 joint line and 28 6 inch sp(inches. AROM r knee 0-90(was 70 3 days ago according to patient). L knee AROM 0-110. patella stiff on R vs L. incision is dressed and dry as best I can tell, no concerns form patinet. Strength knee ext 20# R and hamstring 46# R. TUG 22 - Balance/Special Test Scores WOMAC Total Score: 50 WOMAC Percentatge: 47.9200 - Goals Goal 1:: ST: 0-11 AROM R knee Goal Time Frame: 2-4 Weeks Goal 2:: TUG <12 Goal Time Frame: 2-4 Weeks Goal 3:: Walk without AD in community without increased pain Goal Time Frame: 2-4 Weeks Goal 4:: Steps reciprocally without rail Goal Time Frame: 4-6 Weeks Goal 5:: Plan to return to work Goal Time Frame: 6-8 Weeks - Rehabilitation Potential Physical Therapy Diagnosis: s/p R tka with stiffness and weakness and immobility Rehabilitation Potential: Good - Anticipated Interventions Patient/Client Instruction: Educate patient on: Condition, Plan of Care For the Purpose of:: To decrease pain, To increase ROM, To improve nutrient delivery to tissue, To increase oxygenation perfusion, To increase tolerance to activity/condition/position, To improve ability of physical actions for home/community/work/leisure, To improve gait and locomotor functions Therapeutic Exercise to Include: Strength training, Postural training, Flexibilty training, Passive ROM, Active ROM For the Purpose of:: To decrease pain, To increase ROM, To improve nutrient delivery to tissue, To improve muscle performance and motor function, To increase tolerance to activity/condition/position, To improve ability of physical actions for home/community/work/leisure Manual Therapy Techniques to Include: Mobilization, Soft tissue mobilization For the Purpose of:: To decrease pain, To increase ROM, To improve nutrient delivery to tissue Cryotherapy (ice pack, ice massage): Yes For the Purpose of:: To decrease swelling/inflammation Thank you for the opportunity to evaluate your patient. For Medicare and Medicare HMO plans, please review the plan of care and approve it. It will need to be FAXED BACK to us at [phone] for Medicare purposes. For Medicare only, by signing this I certify the plan of care. Please let me know if there are questions or concerns regarding this plan of care. Physician Signature: Date:
--- NOTE | 2023-05-14 13:10 | HP.PTDCNRP_ITS ---
DANAY TRENT was seen in my office for initial evaluation on 02/11/23. The following Plan of Care was established for this patient: Initial Frequency: 3x /Week Initial Duration: 4-6 Weeks Patient/Client Instruction: Educate patient on: Condition, Plan of Care For the Purpose of:: To decrease pain, To increase ROM, To improve nutrient delivery to tissue, To increase oxygenation perfusion, To increase tolerance to activity/condition/position, To improve ability of physical actions for home/community/work/leisure, To improve gait and locomotor functions Therapeutic Exercise to Include: Strength training, Postural training, Flexibilty training, Passive ROM, Active ROM For the Purpose of:: To decrease pain, To increase ROM, To improve nutrient delivery to tissue, To improve muscle performance and motor function, To in crease tolerance to activity/condition/position, To improve ability of physical actions for home/community/work/leisure Manual Therapy Techniques to Include: Mobilization, Soft tissue mobilization For the Purpose of:: To decrease pain, To increase ROM, To improve nutrient delivery to tissue Cryotherapy (ice pack, ice massage): Yes For the Purpose of:: To decrease swelling/inflammation This patient was last seen in our office 03/22/23. Pertinent comments regarding their Physical therapy will appear below: Pt seen 18 visits of POC and left before her recheck on last visit. I contacted her today to see if she needed further therapy. she says her knee is doing well adn she is still working out regularly. No further therapy needed. I will discontinue at this time. At this point I will be discontinuing this patient from physical therapy. I would be happy to see this patient again in the future if found appropriate by the physician. Thank you! Jarred Pendleton, DPT, OCS, CSCS Balance/Gait/Functional tests - Balance/Special Test Scores WOMAC Total Score: 47 WOMAC Percentage: 51.0500
== END 2023-03-22 19:00 | disposition home or self-care (01) ==
LOC: PT 08:30
PROVIDERS: PCP Family Medicine; Referring Provider Physician Assistant Surgical; Visit Provider Physician Assistant Surgical
DX: Z47.1 Aftercare following joint replacement surgery (principal); Z96.651 Presence of right artificial knee joint; M17.11 Unilateral primary osteoarthritis, right knee
CPT/HCPCS: 97016; 97110; 97140; 97161; 97530

== ENCOUNTER → 2023-10-04 | Outpatient (CLI) | payer OTHER, SELFPAY ==
--- NOTE | 2023-10-04 15:16 | BI_ITS ---
MAMMOGRAPHY - BILATERAL SCREENING REASON FOR EXAM: Female, 52 years old. Routine annual screening examination. PERTINENT HISTORY: Personal history of breast cancer. Prior left lumpectomy. Grandmother with breast cancer. Aunt with breast cancer. TECHNIQUE: Digital bilateral breast teodoro (3D mammographic acquisition) in the CC and MLO projections. 2-D mediolateral oblique (MLO) and craniocaudad (CC) views of both breasts were obtained. CAD: Full Field Digital Mammography with Computer Added Detection was performed. COMPARISON: Comparison is made with prior study September 14, 2022 and July 17, 2021. FINDINGS: Breast Composition: The breasts are almost entirely fatty. There are no dominant masses or suspicious calcifications. Surgical clips are once again seen in the retroareolar region of the left breast in keeping with history of prior lumpectomy. Stable fat-containing bilateral axillary lymph nodes. No other significant abnormalities are identified. There has been no significant change since the prior study. BI/SCRN MAMM (CAD)W/TEODORO BILAT IMPRESSION: Stable bilateral screening mammogram. Yearly follow-up mammogram recommended. (A) ASSESSMENT CATEGORY: BIRADS Category 2: Benign. A letter regarding these results will be sent to the patient by the facility within 30 days. Approximately 10% of breast cancers are not detected by mammography. A normal mammogram should not delay biopsy of a clinically suspicious abnormality. [id number] Electronically Signed: Narendra Cano MD at 8:39 EST ,
== END | disposition home or self-care (01) ==
LOC: OPBI 15:15
PROVIDERS: PCP Family Medicine; Referring Provider Obstetrics & Gynecology; Visit Provider Obstetrics & Gynecology
DX: Z12.31 Encounter for screening mammogram for malignant neoplasm of breast (principal)
CPT/HCPCS: 77063; 77067

== ENCOUNTER → 2023-10-10 | Outpatient (CLI) | payer OTHER, SELFPAY ==
[2023-10-10 15:05] LABS: Uric Acid 2.8 mg/dL (2.6-6.0)
== END | disposition home or self-care (01) ==
LOC: MFPLAB 12:15
PROVIDERS: PCP Family Medicine; Visit Provider Family Medicine
DX: M79.673 Pain in unspecified foot (principal)
CPT/HCPCS: 36415; 84550

== ENCOUNTER → 2023-11-06 | Outpatient (CLI) | payer OTHER, SELFPAY ==
[2023-11-06 07:59] LABS: AST(SGOT) 15 U/L (15-37); Alanine Aminotransfer ALT/SGPT 22 U/L (13-56); Albumin, Serum 3.6 g/dL (3.2-5.0); Alkaline Phosphatase 114 U/L (45-117); Anion Gap 1 (5-15); BUN 29 mg/dL (7-18); BUN/Creat Ratio 33.9 RATIO (10-20); Chloride 112 mmol/L (98-107); Cholesterol 204 mg/dL (200); Creatinine, Serum 0.86 mg/dL (0.55-1.02); EST Glomerular Filtration Rate 73 mL/min (>60); Est Glom Filt Rate - Afr Amer 89 mL/min (>60); Globulin 3.5 g/dL (2.2-4.2); Glucose 102 mg/dL (74-106); High Density Lipoprotein 65 mg/dL; Potassium 4.1 mmol/L (3.5-5.1); Protein, Total 7.1 g/dL (6.4-8.2); Sodium Level 143 mmol/L (136-145); Triglycerides 138 mg/dL; Very Low Density Lipoprotein 28 mg/dL (5-40)
[2023-11-06 08:00] LABS: Vitamin B12 453 pg/mL (211-911)
[2023-11-06 09:53] LABS: Hemoglobin A1c 5.3 % (3.8-5.6)
== END | disposition home or self-care (01) ==
LOC: LAB 06:44
PROVIDERS: PCP Family Medicine; Referring Provider Obstetrics & Gynecology; Visit Provider Obstetrics & Gynecology
DX: Z13.1 Encounter for screening for diabetes mellitus (principal); Z13.21 Encounter for screening for nutritional disorder
CPT/HCPCS: 36415; 80053; 80061; 82607; 83036

== ENCOUNTER → 2024-02-11 | Outpatient (CLI) | payer OTHER, SELFPAY ==
--- NOTE | 2024-02-11 07:52 | RAD_ITS ---
STUDY: X-RAY - LEFT KNEE REASON FOR EXAM: Female, 53 years old. AFTER CARE TECHNIQUE: 2 views of the left knee. COMPARISON: Left knee radiographs dated 02/20/2023. FINDINGS: There is a stable medial unicompartmental arthroplasty. The orthopedic hardware components are intact. There is no periprosthetic fracture. There is unchanged mild osteoarthritic spur formation of the lateral femorotibial compartment. Normal proximal tibiofibular articulation. RAD/Knee 1 or 2 Views IMPRESSION: Stable medial unicompartmental arthroplasty, with no periprosthetic fracture. Unchanged mild degenerative arthrosis of the lateral femorotibial compartment. Electronically Signed: Javy Vincent MD at 8:34 EDT ,
--- NOTE | 2024-02-11 07:53 | RAD_ITS ---
STUDY: X-RAY - RIGHT KNEE REASON FOR EXAM: Female, 53 years old. AFTERCARE TECHNIQUE: 4 views of the right knee. COMPARISON: None. FINDINGS: Again seen is a right total knee arthroplasty with patellar resurfacing. The previously seen anterior surgical shantelle have been removed. The orthopedic hardware components are intact. There is no periprosthetic fracture. There is a stable 1.9 cm enchondroma in the posterior aspect of the distal femoral metadiaphysis. Normal proximal tibiofibular articulation. RAD/Knee 4 or More Views IMPRESSION: Stable right total knee arthroplasty, with no periprosthetic fracture. Electronically Signed: Javy Vincent MD at 8:32 EDT ,
== END | disposition home or self-care (01) ==
PROVIDERS: PCP Family Medicine; Referring Provider Physician Assistant Surgical; Visit Provider Physician Assistant Surgical
DX: M17.11 Unilateral primary osteoarthritis, right knee (principal); Z47.1 Aftercare following joint replacement surgery; Z96.651 Presence of right artificial knee joint
CPT/HCPCS: 73560; 73564

== ENCOUNTER → 2024-04-03 | Outpatient (CLI) | payer OTHER, SELFPAY ==
--- NOTE | 2024-04-03 15:11 | RAD_ITS ---
EXAM: XR RIGHT FOOT COMPLETE, 3 OR MORE VIEWS CLINICAL INDICATION: pain TECHNIQUE: Frontal, lateral and oblique views of the right foot. COMPARISON: No relevant prior studies available. FINDINGS: BONES/JOINTS: Unremarkable. No acute fracture. No subluxation. Normal alignment. Preservation of the joint space. No sclerotic or destructive changes observed. SOFT TISSUES: Unremarkable. No soft tissue swelling or gas. No radiopaque foreign body. RAD/Foot min 3 Views IMPRESSION: Negative right foot x-rays. Electronically Signed: Kendall Vines MD at 23:09 EDT ,
== END | disposition home or self-care (01) ==
LOC: MTRAD 15:11
PROVIDERS: PCP Family Medicine; Referring Provider Nurse Practitioner Family; Visit Provider Nurse Practitioner Family
DX: M79.671 Pain in right foot (principal)
CPT/HCPCS: 73630

== ENCOUNTER → 2024-04-17 | Outpatient (CLI) | payer OTHER, SELFPAY ==
[2024-04-17 09:18] LABS: Color, Urine Yellow (Yellow); Glucose, Dipstick Normal (Normal); Ketone-Dipstick Negative (Negative); Leukocyte Esterase-Dipstick 25 /ul (Negative); Nitrite-Dipstick Negative (Negative); Occult Blood-Urine Negative /ul (Negative); Protein-Dipstick Negative (Negative); Urine Bilirubin Dipstick Negative (Negative); Urine Clarity Sl. Cloudy (Clear); Urine Urobilinogen Normal (Normal)
== END | disposition home or self-care (01) ==
LOC: LABSPEC 07:37
PROVIDERS: PCP Family Medicine; Referring Provider Advanced Practice Midwife; Visit Provider Advanced Practice Midwife
DX: R39.9 Unspecified symptoms and signs involving the genitourinary system (principal)
CPT/HCPCS: 81002; 87077; 87086; 87088; 87186

== ENCOUNTER → 2024-10-02 | Outpatient (CLI) | payer OTHER, SELFPAY | END | disposition home or self-care (01) | LOC: RAD 14:16 | PROVIDERS: PCP Family Medicine; Referring Provider Podiatrist; Visit Provider Podiatrist | DX: M79.671 Pain in right foot (principal); M79.672 Pain in left foot | CPT/HCPCS: 73630 ==

== ENCOUNTER → 2024-10-13 | Outpatient (CLI) | payer OTHER, SELFPAY ==
--- NOTE | 2024-10-13 12:25 | BI_ITS ---
MAMMOGRAPHY - BILATERAL SCREENING REASON FOR EXAM: Female, 53 years old. Routine annual screening examination. PERTINENT HISTORY: Personal history of breast cancer. Prior left lumpectomy. Grandmother with breast cancer. Aunt with breast cancer. TECHNIQUE: Digital bilateral breast teodoro (3D mammographic acquisition) in the CC and MLO projections. 2-D mediolateral oblique (MLO) and craniocaudad (CC) views of both breasts were obtained. CAD: Full Field Digital Mammography with Computer Added Detection was performed. COMPARISON: Comparison is made with prior study dated October 04, 2023 and September 14, 2022. FINDINGS: Breast Composition: The breasts are almost entirely fatty. There are no dominant masses or suspicious calcifications. Surgical clips are once again seen in the retroareolar region of the left breast in keeping with history of prior lumpectomy. Postoperative scarring is seen. Stable fat-containing axillary lymph nodes. No other significant abnormalities are identified. There has been no significant change since the prior study. BI/SCRN MAMM (CAD)W/TEODORO BILAT IMPRESSION: Stable bilateral screening mammogram. Yearly follow-up mammogram recommended. (A) ASSESSMENT CATEGORY: BIRADS Category 2: Benign. A letter regarding these results will be sent to the patient by the facility within 30 days. Approximately 10% of breast cancers are not detected by mammography. A normal mammogram should not delay biopsy of a clinically suspicious abnormality. [id number] Electronically Signed: Narendra Cano MD at 13:13 EST ,
== END | disposition home or self-care (01) ==
LOC: OPBI 12:24
PROVIDERS: PCP Family Medicine; Referring Provider Obstetrics & Gynecology; Visit Provider Obstetrics & Gynecology
DX: Z12.31 Encounter for screening mammogram for malignant neoplasm of breast (principal)
CPT/HCPCS: 77063; 77067

== ENCOUNTER → 2025-05-31 | Outpatient (CLI) | payer OTHER, SELFPAY | END | disposition home or self-care (01) | LOC: US 15:16 | PROVIDERS: PCP Family Medicine; Visit Provider Obstetrics & Gynecology | DX: N95.0 Postmenopausal bleeding (principal) | CPT/HCPCS: 76830; 76856 ==

== ENCOUNTER 2025-07-16 07:51 | Day surgery (SDC) | payer OTHER, SELFPAY ==
--- NOTE | 2025-06-29 08:58 | HP.PCM_ITS ---
History and Physical Date of Admission: 07/16/25 Assessment & Plan Assessment/Plan (1) PMB (postmenopausal bleeding): (2) Endometrial thickening on ultrasound: (3) Stenotic cervical os: PLAN: Plan HPI: The patient is a 54 year old female presenting for pre-operative visit. She is scheduled for hysteroscopy D&C with possible polyp resection, for PMB, thickened endometrium and stenotic cervix on 07/16/25. Procedure discussed along with risks, benefits and complications. Other alternatives discussed for management. Consent form signed? Yes. ? ? PAST MEDICAL HISTORY PAST MEDICAL HISTORYDiagnosisDate?Anxiety state, unspecified? ? ? PAST SURGICAL HISTORY PAST SURGICAL HISTORYProcedureLateralityDate?ARTHRP KNE CONDYLE&PLATU MEDIAL&LAT [id number]?BREAST BX NEEDLE CORE LEFT?01/05/2009?U/S needle core 4 Oclock left breast density?BX BREAST PERC VACUUM/ROTN?02/07/2009?EXC BREAST LES PREOP PLMT RAD MARKER OPEN 1 LES?02/07/2009? LEFT?LIG/TRNSXJ FLP TUBE ABDL/VAG APPR UNI/BI???Tubal ligation?LIVER BIOPSY?11/2021?PAST SURGICAL HISTORY OF??? bunion, left foot?PAST SURGICAL HISTORY OF???hemorrhoidectomy?PAST SURGICAL HISTORY OF???ablation ? ? ? CURRENT MEDICATIONS Current Outpatient MedicationsMedicationSigDispenseRefill?acyclovir (ZOVIRAX) 200 mg capsuleTake 2 capsules by mouth as directed. 400 mg TID PRN outbreaks for 5 days60 capsule2?lansoprazole (PREVACID) 30 mg capsule?sertraline hcl(ZOLOFT 100 MG TAB)Take one(1) tablet daily.?0?metFORMIN ER (GLUCOPHAGE XR) 500 mg 24 hr tabletTake 2 tablets by mouth daily with dinner. (Patient not taking: Reported on 01/14/2025)60 tablet5?topiramate (TOPAMAX) 50 mg tabletTake 1 tablet by mouth once daily.30 tablet5?omega-3s/dha/epa/fish oil/D3 (VITAMIN-D + OMEGA-3 ORAL)Take by mouth. (Patient not taking: Reported on 06/17/2025)???No current facility-administered medications for this visit. ? ? ALLERGIES: Augmentin [Amoxicillin-Pot Clavulanate] and Hydrocodone Bitartrate ? PERSONAL HISTORY: SOCIAL HISTORY Social History?Tobacco Use?Smoking status:Never?Smokeless tobacco:NeverVaping Use?Vaping status:Never UsedSubstance Use Topics?Alcohol use:No??Comment: rare ?Drug use:No ? FAMILY HISTORY: FAMILY HISTORY FAMILY HISTORY ProblemRelationAge of Onset?Ovarian cancerMother?? early 60's ?Clotting DisorderMother??HypertensionFather??Heart [id number]?Clotting DisorderSister? ? ? REVIEW OF SYMPTOMS: GENERAL: denies fevers or chills ENDOCRINOLOGY: has not been on steroids Cardiology : denies palpitations or chest pain Respiratory: denies SOB or cough Hematology: denies history of prolonged bleeding or easy bruising or VTE Allergy: Denies history of personal or family history of allergy to anesthesia ? PHYSICAL EXAMINATION: ? VITALS: Blood pressure 126/84, weight 112.9 kg (249 lb), last menstrual period 05/12/2020. ? GENERAL: The patient is well nourished, well hydrated in no acute distress. , The patient is oriented to time, place, and person. NECK: Supple. No lynphadenopathy, normal thyroid, no thyromegaly. LUNGS: Clear to auscultation bilaterally. no wheezes, rhonchi or rales HEART: Regular rate and rhythm, Normal heart sounds, and No murmurs or gallops ? IMPRESSION: PMB, stenotic cervix, thickened endoemtrium ? PLAN: The risks/benefits/alternatives and personal involved for the planned hysteroscopy D&C with possible polyp resection were reviewed with the patient. Her questions were answered to her satisfaction and she desires to proceed. Consent was signed. I reviewed with her postop instructions and expectations. ? ? I have reviewed and updated past medical and surgical history, medications and allergies Sophia Hyman M.D.
--- NOTE | 2025-07-05 10:30 | PAT.ANESEVAL ---
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 When Was Last Pacemaker Check QUESTION #4 FULL TEXT: You/Your Family Experience fever (hyperthermia) with Anesthesia Last Oral Intake Last Oral intake: Last Oral Intake NPO since Meds taken in AM with sips of water? Meds patient instructed to take am of surgery PONV PONV - enterprise application analyst: PONV - enterprise application analyst Female Yes 07/05/25 08:16 HX of Motion Sickness Yes 07/05/25 08:16 HX of N/V After Surgery Yes 07/05/25 08:16 Non-Smoker Yes 07/05/25 08:16 Duration of Surgery greater No 07/05/25 08:16 than 60 minutes Number of Risk Factors 4 07/05/25 08:16 PONV Score Severe Risk 07/05/25 08:16 Height & Weight Height & Weight: Anesthesia: Height & Weight Height 5 ft 5.5 in 02/06/23 15:56 Respiratory Assessment Respiratory Assessment - enterprise application analyst: Respiratory Tract Infection Hx - enterprise application analyst Hx Respiratory Tract Infection No 07/05/25 08:16 STOP Sleep Apnea STOP Sleep Apnea - enterprise application analyst: STOP Sleep Apnea - enterprise application analyst Hx Hypertension No 07/05/25 08:16 Hx Sleep Apnea No 07/05/25 08:16 CPAP No 07/05/25 08:16 BIPAP No 07/05/25 08:16 Do you snore loudly (louder No 07/05/25 08:16 than talking or can be heard Do you often feel tired/ No 07/05/25 08:16 fatigued/ sleepy during daytime? Has anyone observed you stop No 07/05/25 08:16 breathing during sleep? STOP Results Negative 07/05/25 08:16 QUESTION #5 FULL TEXT : Do you snore loudly (louder than talking or can be heard through closed doors)? 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 Specify any problems Hx of Preganancy in last 3 No 07/05/25 08:16 Months Nurse Filling Out Transfusion VCHRISTIN 07/05/25 08:16 & Questions: Date: 07/05/25 07/05/25 08:16 Time: 08:17 07/05/25 08:16 Patient unable to answer at this time (ie. confused, unrespo /Reproduction History /Reproductive History - enterprise application analyst: /Reproductive Hx- enterprise application analyst Hx Now No 07/05/25 08:16 Gestational Age (in weeks): EDC: Hx Hx Para Hx Section SAB No 07/05/25 08:16 PFSH Medical History Wears contact lenses History of Clostridium difficile infection Alcohol use Restless legs Blackout History of GI bleed Gastric reflux Shortness of breath on exertion History of bradycardia Leg cramps History of edema GERD (gastroesophageal reflux disease) Encounter for screening colonoscopy hx of leg injury History of pneumonia Knee pain Arthritis History of hemorrhoids Home Medications ?Medication ?Instructions ?Recorded ?Last Taken ?Type sertraline 100 mg tablet 100 - 200 mg PO DAILY 10/07/13 Unknown History lansoprazole 30 mg capsule,delayed 30 mg PO DAILY 11/27/21 02/06/23 History release magnesium 250 mg tablet 250 mg PO DAILY 11/27/21 Unknown History cholecalciferol (vitamin D3) 125 500 mcg PO QODAY 11/30/21 Unknown History mcg (5,000 unit) tablet (Vitamin D3) acyclovir 400 mg tablet 400 mg PO TID PRN Cold Sores 01/23/23 Unknown History Allergy/AdvReac Type Severity Reaction Status Date / Time amoxicillin (From Augmentin) Allergy Diarrhea Verified 07/05/25 08:13 clavulanic acid (From Allergy Diarrhea Verified 07/05/25 08:13 Augmentin) hydrocodone bitartrate (From AdvReac Other Verified 07/05/25 08:13 Vicodin) Family History Father Heart disease Mother Diabetes Asthma Cancer Daughter Heart disease Seizures Surgical History (Updated 07/05/25 @ 08:16 by Mignon Hand) History of total right knee replacement History of esophagogastroduodenoscopy (EGD) History of tubal ligation History of liver biopsy History of lumpectomy of left breast History of wisdom tooth extraction History of hemorrhoidectomy H/O lateral meniscus repair of right knee H/O lateral meniscus repair of left knee History of partial knee replacement History of bunionectomy history of uterine ablation Bilateral carpal tunnel syndrome History of arthroscopy of both knees Acuña neuroma Social History Smoking Status: Never smoker alcohol intake: current alcohol intake frequency: holidays/special occasions only substance use type: does not use Audit: Pertinent Findings Pertinent Findings EKG Perinent findings: January 25, 2023. Normal sinus rhythm. Inferior infarct, age undetermined, cannot be excluded. Poor R wave progression. Recommendation Anesthesia Recommendation Anesthesia recommendation: OPTIMIZED for anesthesia
[2025-07-16] VITALS (11 sets, daily range): BP systolic 124–153; BP diastolic 77–96; PULSE 56–114; RESP 16–20; TEMP 36.1–36.6; O2SAT 90–100; BMI 40.1
[2025-07-16] MEDS: Lactated Ringers 1,000 ML 15 ML IV (08:42)
--- NOTE | 2025-07-16 09:05 | PRE.ANES_ITS ---
ASA Classification* ASA Classification ASA Classification: 3 Assessment & Plan Anesthesia* Anesthesia Assessment Anesthesia Assessment: Discussed sedation and/or anesthesia options, risks, benefits, and alternatives with patient/parents/legal guardian/POA. Questions invited. The patient/parents/legal guardian/POA seems to understand and agrees to proceed with anesthesia plan. Reviewed the physical assessment, medical history, allergy history and patient home medications list prior to surgery/procedure/anesthetic and documented any changes. Performed airway and anesthesia risk assessments. Anesthesia Type Anesthesia Type: MAC History Source History Obtained from:: Patient and Chart Anesthesia Focused Assessment* Temperature: 97.9 F Pulse Rate: 56 Blood Pressure: 133/92 Respiratory Rate: 16 Pulse Ox: 96 Oxygen Delivery Method: Room Air Airway Assessment Mouth opens: >3 cm Mallampati Score: I Teeth Condition: Intact and Caps/Crowns (Tooth #8, #9, and #10 are bonded.) Neck Range of motion (ROM): Full ROM Labs Anesthesia Preop lab: CBC WBC 4.6 K/mm3 (4.4-11.0) 06/15/24 08:58 06/15/24 RBC 4.56 M/mm3 (4.2-5.4) 06/15/24 08:58 06/15/24 Hgb 13.6 g/dL (12.0-15.0) 06/15/24 08:58 06/15/24 Hct 41.9 % (37-47) 06/15/24 08:58 06/15/24 Plt Count 208 K/mm3 (150-450) 06/15/24 08:58 06/15/24 CHEMISTRY Potassium 3.8 mmol/L (3.5-5.1) 06/15/24 08:58 06/15/24 Sodium 142 mmol/L (136-145) 06/15/24 08:58 06/15/24 Magnesium 2.5 mg/dL (1.6-2.6) 01/23/23 09:07 01/23/23 Phosphorus 3.9 mg/dL (2.5-4.9) 06/15/24 08:58 06/15/24 BUN 24 mg/dL (7-18) H 06/15/24 08:58 06/15/24 Creatinine 0.94 mg/dL (0.55-1.02) 06/15/24 08:58 06/15/24 Glucose 86 mg/dL (74-106) 06/15/24 08:58 06/15/24 POC Glucose 150 mg/dL (74-106) H 02/07/23 13:55 02/07/23 TSH 0.80 uIU/mL (0.358-3.74) 01/23/23 09:07 COAG PT 13.8 SECONDS (11.7-14.9) 11/29/21 09:05 Pre-Assessment Diagnosis/Proposed Procedure Planned Operative Procedure(s): Hysteroscopy,D&C, possible polyp resection, Symphion available not opened Anesthesia History 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 When Was Last Pacemaker Check QUESTION #4 FULL TEXT: You/Your Family Experience fever (hyperthermia) with Anesthesia Last Oral Intake Last Oral intake: Last Oral Intake NPO since 06:00 07/16/25 08:36 Meds taken in AM with sips of Yes 07/16/25 08:36 water? Meds patient instructed to prevacid 07/16/25 08:36 take am of surgery Any additional information?: Yes NPO since: 06:00 (Patient took her pravastatin at 6 AM.) Meds taken in AM with sips of water?: Yes PONV PONV - director of student services: PONV - director of student services Female Yes 07/05/25 08:16 HX of Motion Sickness Yes 07/05/25 08:16 HX of N/V After Surgery Yes 07/05/25 08:16 Non-Smoker Yes 07/05/25 08:16 Duration of Surgery greater No 07/05/25 08:16 than 60 minutes Number of Risk Factors 4 07/05/25 08:16 PONV Score Severe Risk 07/05/25 08:16 Height & Weight Height & Weight: Anesthesia: Height & Weight Height 5 ft 6 in 07/16/25 08:36 Weight: 113 kg 07/16/25 08:36 Body Mass Index (BMI) 40.1 07/16/25 08:36 Respiratory Assessment Respiratory Assessment - director of student services: Respiratory Tract Infection Hx - director of student services Hx Respiratory Tract Infection No 07/05/25 08:16 STOP Sleep Apnea STOP Sleep Apnea - director of student services: STOP Sleep Apnea - director of student services Hx Hypertension No 07/05/25 08:16 Hx Sleep Apnea No 07/05/25 08:16 CPAP No 07/05/25 08:16 BIPAP No 07/05/25 08:16 Do you snore loudly (louder No 07/05/25 08:16 than talking or can be heard Do you often feel tired/ No 07/05/25 08:16 fatigued/ sleepy during daytime? Has anyone observed you stop No 07/05/25 08:16 breathing during sleep? STOP Results Negative 07/05/25 08:16 QUESTION #5 FULL TEXT : Do you snore loudly (louder than talking or can be heard through closed doors)? 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 Specify any problems Hx of Preganancy in last 3 No 07/05/25 08:16 Months Nurse Filling Out Transfusion VCHRISTIN 07/05/25 08:16 & Questions: Date: 07/05/25 07/05/25 08:16 Time: 08:17 07/05/25 08:16 Patient unable to answer at this time (ie. confused, unrespo /Reproduction History /Reproductive History - director of student services: /Reproductive Hx- director of student services Hx Now No 07/05/25 08:16 Gestational Age (in weeks): EDC: Hx Hx Para Hx Section SAB No 07/05/25 08:16 Active Medications Active Medications: Current Medications Generic Name Dose Route Start Last Admin Trade Name Freq PRN Reason Stop Dose Admin Acetaminophen 1,000 mg 07/16/25 09:30 07/16/25 08:43 Acetaminophen 500 Mg Tablet PO 07/16/25 09:31 1,000 mg PREOP ONE Administration Celecoxib 200 mg 07/16/25 09:30 07/16/25 08:42 Celecoxib 200 Mg Capsule PO 07/16/25 09:31 200 mg PREOP ONE Administration Lactated Ringer's 1,000 mls @ 15 mls/hr 07/16/25 08:15 07/16/25 08:42 IV 15 mls/hr .Q48H OVI Administration PFSH Medical History Wears contact lenses History of Clostridium difficile infection Alcohol use Restless legs Blackout History of GI bleed Gastric reflux Shortness of breath on exertion History of bradycardia Leg cramps History of edema GERD (gastroesophageal reflux disease) Encounter for screening colonoscopy hx of leg injury History of pneumonia Knee pain Arthritis History of hemorrhoids Home Medications ?Medication ?Instructions ?Recorded ?Last Taken ?Type sertraline 100 mg tablet 100 - 200 mg PO DAILY Unknown History lansoprazole 30 mg capsule,delayed 30 mg PO DAILY 02/1307/16/25 06:00 History release magnesium 250 mg tablet 250 mg PO DAILY 11/27/21 Unk nown History cholecalciferol (vitamin D3) 125 500 mcg PO QODAY 05/16 Unknown History mcg (5,000 unit) tablet (Vitamin D3) acyclovir 400 mg tablet 400 mg PO TID PRN Cold Sores 01/23/23 Unknown History Allergy/AdvReac Type Severity Reaction Status Date / Time amoxicillin (From Augmentin) Allergy Diarrhea Verified 07/16/25 08:33 clavulanic acid (From Allergy Diarrhea Verified 07/16/25 08:33 Augmentin) hydrocodone bitartrate (From AdvReac Other Verified 07/16/25 08:33 Vicodin) Family History Father Heart disease Mother Diabetes Asthma Cancer Daughter Heart disease Seizures Surgical History History of total right knee replacement History of esophagogastroduodenoscopy (EGD) History of tubal ligation History of liver biopsy History of lumpectomy of left breast History of wisdom tooth extraction History of hemorrhoidectomy H/O lateral meniscus repair of right knee H/O lateral meniscus repair of left knee History of partial knee replacement History of bunionectomy history of uterine ablation Bilateral carpal tunnel syndrome History of arthroscopy of both knees Acuña neuroma Social History Smoking Status: Never smoker alcohol intake: current alcohol intake frequency: holidays/special occasions only substance use type: does not use Review of Systems (Anesthesia) ROS Narrative System reviewed and no additional complaints, except as documented.
[2025-07-16 09:27] LABS: Anion Gap 14 (5-15); BUN 20 mg/dL (4-19); BUN/Creat Ratio 20.8 RATIO (10-20); Calcium,Total 9.7 mg/dL (7.6-11.0); Carbon Dioxide 22.8 mmol/L (21.0-32.0); Chloride 101 mmol/L (98-108); Estimated Creatinine Clearance 85.22 ml/min (50-250); Glucose 95 mg/dL (70-99); Potassium 4.6 mmol/L (3.3-5.1)
[2025-07-16] MEDS: Midazolam 2 MG/2 ML Syringe IV (09:27)
--- NOTE | 2025-07-16 09:30 | EMB_PTH ---
PATIENT: DANAY TRENT LOC: [facility] [place] U#:[id number] AGE/SX: 54/F ROOM: RE07/16/[address]: Dr. Sophia Hyman MD : 1970 BED: DIS: 07/16/2025 SPEC #: [id number] RECD: 07/16/25 10:33 STATUS: JAEL BEE #: [id number] ANTOINETTE: 07/16/25 09:[address]: Sophia Hyman DEPT: SURGICAL PATHOLOGY RECD BY: Richy Whitaker ENTERED: 07/16/25 12:47 SP TYPE: ENDOM BX/C OTHR DR: Dr. Albert Chi MD Tissues: A - Endometrium, NOS Procedures: Surgery Specimen Level IV HEADER OPERATION: Hysteroscopy, D&C PRE-OP DIAGNOSIS: Post menopausal bleeding, endometrial thickening on ultrasound, stenotic cervical os TISSUE SUBMITTED: A- Endometrial curettings MICROSCOPIC DIAGNOSIS A. Endometrium, hysteroscopy with dilation and curettage: * Weakly proliferative endometrium * Strips of benign squamous epithelium * Endocervical tissue with squamous metaplasia, benign MICROSCOPIC DESCRIPTION Slides are reviewed. GROSS DESCRIPTION A. Received in formalin labeled with the patient's name and date of . Designated as endometrial curetting is a 2.3 x 0.8 x 0.1 cm aggregate of pink-red tissue and mucoid material. Entirely submitted in 1 cassette. [place] 07/16/2025 CPT:47050
[2025-07-16] MEDS: PROPOFOL 30.49 MG IV (09:33)
[2025-07-16] MEDS: Lidocaine 1% (5 ml sdv) 5 ML Vial IV (09:34)
--- NOTE | 2025-07-16 09:38 | PCM.DC ---
Discharge Instructions DC O2, CPAP, BIPAP needs Home O2 Discharge instructions: No Dressing / Incision Return to work on:: 07/19/25 May resume sexual activity in: 2 weeks Lifting Restrictions: none Dressing / Incision Call your doctor if your incision/area has: Sudden Increased Bleeding and Foul Smelling Discharge Call your doctor if you observe: Fever of 101 or Higher and Using more than 1 pad per hour (for 2 hrs in a row) Additional Dressing/Incision Instructions:: Nothing in your vagina, no tub baths for 1 week Follow Up Care Please Follow Up With: Sophia Hyman MD When: We will contact you in approximately 2 weeks with your pathology. Call [phone] to make an appointment or with any concerns. Test Results: Test results from this visit will be discussed in further detail at your follow-up appointment, if applicable. Discharge Plan Admission Primary Reason for Your Visit: Hysteroscopy D&C Attending Provider: Sophia Hyman Primary Care Provider: Albert Chi Instructions Print Language: Hungarian Discharge Orders/Prescriptions Prescriptions: No Action lansoprazole 30 mg capsule,delayed release(DR/EC) 30 mg PO DAILY magnesium 250 mg tablet 250 mg PO DAILY sertraline 100 MG tablet 100 - 200 mg PO DAILY Patient Comments: depression/anxiety cholecalciferol (vitamin D3) [Vitamin D3] 125 mcg (5,000 unit) Tablet 500 mcg PO QODAY acyclovir 400 mg tablet 400 mg PO TID PRN (Reason: Cold Sores) Patient Comments: TAKE 1 TABLET BY MOUTH 3OTIMES A DAY NEEDED FOREOUTBREAKSP Referrals / Follow Up: Albert Chi MD [Primary Care Provider] - Disposition Disposition (needs filled in before D/C Order can be placed): Home, Self Care
[2025-07-16] MEDS: 0.9% Normal Saline (Pres. free 10 ML Vial (09:54)
--- NOTE | 2025-07-16 10:06 | PCM.OPRPT ---
Problems Associated Problem List Diagnoses (1) Stenotic cervical os: (2) Endometrial thickening on ultrasound: (3) PMB (postmenopausal bleeding): Operative Report (Standard) Operative Information Date of Procedure: 07/16/25 Pre-Operative Diagnosis: PMB, thickened endometrium, stenotic cervical os Post-Operative Diagnosis: same Surgery/Procedure Performed: hysteroscopy D&C radiologic technology instructor: Yes Freelance Copywriter: Mitul Soliz MS3 Tasks completed by dental hygiene administrative assistant: Retracting Additional leasing assistant?: No Type of Anesthesia: General RN Documented Start/Stop Times: Operation Date: 07/16/25 09:30 Case Time Into Pre-Op 07/16/25 08:03 Out of Pre-Op 07/16/25 09:22 Anesthesia Start 07/16/25 09:26 Into Room 07/16/25 09:26 Procedure Start Time: 09:52 Procedure Stop Time: 10:04 Select all DRAINS/GRAFTS/IMPLANTS that apply: None Estimated Blood Loss: 5 cc Fluids Replaced: 800 cc LR Specimen collected: Yes Description of specimen(s) removed: endometrial curettings Description of surgery: The patient was taken to the OR where she was prepped and draped in dorsal lithotomy position. The weighted speculum was placed in the vagina and the anterior lip of the cervix was grasped with a single-tooth tenaculum. A paracervical block was administered with 8 cc of dilute vasopressin solution (10 units in 20 cc of injectable saline). The cervix was dilated serially with Hegar dilators. The 3 mm hysteroscope was placed into the uterine cavity and the above findings were noted. Bilateral tubal ostia were identified. The hysteroscope was removed. A gentle sharp curettage was done of the uterine cavity. The instruments were removed from the vagina. The specimen was handed off and sent to pathology. All sponge and needle counts were correct. Vaginal sweep was performed by me. The patient was awakened and taken to the recovery room in stable condition. Hysteroscopic fluid deficit 200 cc of normal saline Findings: Endometrial cavity: Normal, no fibroids or polyps noted Cervix: Normal Vagina: Normal Surgical Findings: Normal cervix and vagina, atrophic thin endometrium without focal pathology Complications Complications: No Admit VTE Documentation VTE Present on Admission: No VTE Mechan Device Prophylaxis: SCD's VTE Pharm Prophylaxis ordered?: No
--- NOTE | 2025-07-16 10:13 | PCM.POST.ANE ---
Anesthesia: Postop Eval I Current Vital Signs Temperature: 97 F Pulse Rate: 114 Blood Pressure: 139/77 Respiratory Rate: 20 Pulse Ox: 93 Assessment Airway patent: Yes Spontaneous unlabored respirations: Yes nausea: No Vomiting: No Anesthesia Complication: No Fluid Hydration Crystalloid volume administer (ml): 800 Total IV fluid infused: 800 Progress Note Anesthesia document: Postop Eval 1 completed: Yes
== END 2025-07-16 12:17 | disposition home or self-care (01) ==
LOC: SDC 07:53 → AC 07:54
PROVIDERS: PCP Family Medicine; Referring Provider Obstetrics & Gynecology; Visit Provider Obstetrics & Gynecology
PROC: 0UB98ZZ Excision of Uterus, Via Natural or Artificial Opening Endoscopic (ICD-10-PCS; CPT 58558; principal; 2025-07-16 09:15)
DX: N88.2 Stricture and stenosis of cervix uteri (principal); N87.9 Dysplasia of cervix uteri, unspecified; N95.0 Postmenopausal bleeding; K21.9 Gastro-esophageal reflux disease without esophagitis; Z87.19 Personal history of other diseases of the digestive system; Z98.51 Tubal ligation status; Z79.899 Other long term (current) drug therapy
CPT/HCPCS: 58558; 00952; 80048; 88305; J2405